=== PATIENT | male | born 1940 | race Caucasian/White ===

== ENCOUNTER 2020-03-22 07:11 | Day surgery (SDC) | payer OTHER ==
[2020-03-21 10:55] LABS: Protime INR 1.63
[~2020-03-22 07:11] MED LIST: ATROPINE SULF 1 MG/10 ML SYR IV ONE; FLUMAZENIL 0.1 MG/ML (5 mL VIAL) IV ONE; MIDAZOLAM HCL 5 MG/5 ML INJ ONE; NA CHLORIDE 0.9% 500 ML ONE
--- OUTSIDE RECORDS SUMMARY | 2020-03-22 07:14 | XMS REPORT ---
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 chest pain. HISTORY: Cardiac risk factors: Diabetes, hypertension, hyperlipidemia, tobacco use. Other cardiovascular history: CAD, pacemaker implantation, atrial fibrillation. Recent cardiac symptoms: Chest pain. Current cardiovascular-related medications: Aspirin, carvedilol, lisinopril, rivaroxaban. PROTOCOL: Limited low-dose CT imaging was performed for attenuation correction. 40.2 mCi of Rb-82 chloride was injected iv at rest, and gated PET (positron emission tomography) images were obtained. Subsequently, 40.2 mCi of Rb-82 chloride was injected iv at expected peak pharmacologic effect, and gated PET images were obtained. PRELIMINARY STRESS TEST DATA FROM NONINVASIVE CARDIOLOGY: Pharmacologic stresswas by 10-second iv infusion of 0.4 mg of regadenoson. Radiotracer was injected 30 seconds after start of stress. Heart rate was 99 beats/min at rest and 109 beats/min (75% of MPHR) at tracer injection. BP was 119/82 mmHg at rest and 128/76 mmHg at tracer injection. Stress was stopped for predetermined endpoint. The patient experienced chest discomfort, dyspnea; treatment was given - aminophyllin. Preliminary ECG evaluation revealed atrial fibrillation with variable ventricular pacing, nonspecific ST T wave changes at rest and no significant changes with stress. (Final ECG interpretation and other stress and monitoring data are reported separately by Cardiology.) IMAGING FINDINGS: Study quality is fair. Gated images quality is poor. Images obtained after stress injection show mild to moderately decreased radiotracer uptake in the apex of the LV. Resting images show similar radiotracer uptake. LV volume appears normal. RV volume appears normal. Gated images obtained immediately after stress visually appear to show lower limits of normal LV function. Accurate assessment of LVEF is not possible given poor gated image quality. IMPRESSION: 1. Abnormal study. 2. Appropriate pharmacologicstress. 3. Abnormal myocardial perfusion. There is a mild to moderate severity, small to medium size, fixed, perfusion defect in the apex of the LV. 4. Lower limits of normal resting LV function. 5. Extracardiac tracer distribution is normal. 6. No previous [facility] study for comparison. NONINVASIV E RISK STRATIFICATION: The above findings are considered intermediate risk (1% to 3% annual mortality rate) Signed: Deonte Goodson MDReport Verified Date/Time: 03/25/2018 15:46:08 Reading Location: [address] Reading Room POCT- GLUCOSE [id number] 12:03:00 Test Item Value Reference Range Comments POC-GLUCOSE METER (BEAKER) 92 mg/dL 70-110 TESTE D AT [address] (test code = 1538) [place] [address] POCT-GLUCOSE [id number] 08:20:00 Test Item Value Reference Range Comments POC-GLUCOSE METER (BEAKER) 114 mg/dL 70-110 TESTE D AT [address] (test code = 1538) [place] [address] [id number] 05:15:00 Test Item Value Reference Range Comments MAGNESIUM (BEAKER) (test code = 1.8 mg/dL 1.6-2.6 Specimen slightly hemolyzed 627) BASIC METABOLIC [id number] 05:15:00 Test Item Value Reference Range Comments SODIUM (BEAKER) (test 137 meq/L 136-145 code = 381) POTASSIUM (BEAKER) (test 3.8 meq/L 3.5-5.1 Specime n slightly code = 379) hemolyzed CHLORIDE (BEAKER) (test 108 meq/L 98-107 code = 382) CO2 (BEAKER) (test code = 18 meq/L 22-29 355) BLOOD UREA NITROGEN 17 mg/dL 7-21 (BEAKER) (test code = 354) CREATININE (BEAKER) (test 0.72 mg/dL 0.57-1.25 Specim en slightly code = 358) hemolyzed GLUCOSE RANDOM (BEAKER) 108 mg/dL 70-105 (test code = 652) CALCIUM (BEAKER) (test 8.5 mg/dL 8.4-10.2 code = 697) EGFR (BEAKER) (test code 106 mL/min/1.73 sq m ES TIMATED GFR IS NOT = 1092) ACCURATE CREA TININE CLEARANCE IN PRE DICTING GLOMERULAR FILTR ATION RATE. ESTIMATED GFR IS NOT APPLICABLE F OR DIALYSIS PATIENT S. CBC W/PLT COUNT & AUTO [id number] 05:13:00 Test Item Value Reference Range Comments WHITE BLOOD CELL COUNT (BEAKER) (test code = 775) 4.9 K/ L 3.5-10.5 RED BLOOD CELL COUNT (BEAKER) (test code = 761) 3.08 M/ L 4.63-6.08 HEMOGLOBIN (BEAKER) (test code = 410) 10.3 GM/DL 13.7-17.5 HEMATOCRIT (BEAKER) (test code = 411) 32.7 % 40.1-51.0 MEAN CORPUSCULAR VOLUME (BEAKER) (test code = 106.2 fL 79 .0-92.2 753) MEAN CORPUSCULAR HEMOGLOBIN (BEAKER) (test code = 33.4 pg 25.7-32.2 751) MEAN CORPUSCULAR HEMOGLOBIN CONC (BEAKER) (test 31.5 GM/DL 32.3-36.5 code = 752) RED CELL DISTRIBUTION WIDTH (BEAKER) (test code = 14.8 % 11.6-14.4 412) PLATELET COUNT (BEAKER) (test code = 756) 59 K/CU MM 150-45 0 MEAN PLATELET VOLUME (BEAKER) (test code = 754) 10.8 fL 9.4-12.4 NUCLEATED RED BLOOD CELLS (BEAKER) (test code = 0 /100 WBC 0-0 413) NEUTROPHILS RELATIVE PERCENT (BEAKER) (test code 56 % = 429) LYMPHOCYTES RELATIVE PERCENT (BEAKER) (test code 31 % = 430) MONOCYTES RELATIVE PERCENT (BEAKER) (test code = 11 % 431) EOSINOPHILS RELATIVE PERCENT (BEAKER) (test code 1 % = 432) BASOPHILS RELATIVE PERCENT (BEAKER) (test code = 1 % 437) NEUTROPHILS ABSOLUTE COUNT (BEAKER) (test code = 2.71 K/ L 1.78-5.38 670) LYMPHOCYTES ABSOLUTE COUNT (BEAKER) (test code = 1.52 K/ L 1.32-3.57 414) MONOCYTES ABSOLUTE COUNT (BEAKER) (test code = 0.55 K/ L 0 .30-0.82 415) EOSINOPHILS ABSOLUTE COUNT (BEAKER) (test code = 0.05 K/ L 0.04-0.54 416) BASOPHILS ABSOLUTE COUNT (BEAKER) (test code = 0.03 K/ L 0 .01-0.08 417) IMMATURE GRANULOCYTES-RELATIVE PERCENT (BEAKER) 0 % 0-1 (test code = 2801) POCT-GLUCOSE [id number] 03:44:00 Test Item Value Reference Range Comments POC-GLUCOSE METER (BEAKER) 94 mg/dL 70-110 TESTE D AT [address] (test code = 1538) [place] [address] POCT-GLUCOSE [id number] 22:46:00 Test Item Value Reference Range Comments POC-GLUCOSE METER (BEAKER) 111 mg/dL 70-110 TESTE D AT [address] (test code = 1538) [place] [address] POCT-GLUCOSE [id number] 11:54:00 Test Item Value Reference Range Comments POC-GLUCOSE METER (BEAKER) 101 mg/dL 70-110 TESTE D AT [address] (test code = 1538) [place] [address] POCT-GLUCOSE [id number] 08:53:00 Test Item Value Reference Range Comments POC-GLUCOSE METER (BEAKER) 121 mg/dL 70-110 TESTE D AT [address] (test code = 1538) [facility] [address] [id number] 04:28:00 Test Item Value Reference Range Comments MAGNESIUM (BEAKER) (test code = 627) 2.1 mg/dL 1.6-2.6 BASIC METABOLIC [id number] 04:28:00 Test Item Value Reference Range Comments SODIUM (BEAKER) (test 137 meq/L 136-145 code = 381) POTASSIUM (BEAKER) (test 4.6 meq/L 3.5-5.1 code = 379) CHLORIDE (BEAKER) (test 102 meq/L 98-107 code = 382) CO2 (BEAKER) (test code = 27 meq/L 22-29 355) BLOOD UREA NITROGEN 20 mg/dL 7-21 (BEAKER) (test code = 354) CREATININE (BEAKER) (test 0.81 mg/dL 0.57-1.25 code = 358) GLUCOSE RANDOM (BEAKER) 107 mg/dL 70-105 (test code = 652) CALCIUM (BEAKER) (test 9.6 mg/dL 8.4-10.2 code = 697) EGFR (BEAKER) (test code 93 mL/min/1.73 sq m EST IMATED GFR IS NOT = 1092) ACCURATE CREA TININE CLEARANCE IN PRE DICTING GLOMERULAR FILTR ATION RATE. ESTIMATED GFR IS NOT APPLICABLE F OR DIALYSIS PATIENT S. CBC W/PLT COUNT & AUTO [id number] 04:13:00 Test Item Value Reference Range Comments WHITE BLOOD CELL COUNT (BEAKER) (test code = 775) 7.1 K/ L 3.5-10.5 RED BLOOD CELL COUNT (BEAKER) (test code = 761) 3.94 M/ L 4.63-6.08 HEMOGLOBIN (BEAKER) (test code = 410) 13.1 GM/DL 13.7-17.5 HEMATOCRIT (BEAKER) (test code = 411) 38.8 % 40.1-51.0 MEAN CORPUSCULAR VOLUME (BEAKER) (test code = 98.5 fL 79 .0-92.2 753) MEAN CORPUSCULAR HEMOGLOBIN (BEAKER) (test code = 33.2 pg 25.7-32.2 751) MEAN CORPUSCULAR HEMOGLOBIN CONC (BEAKER) (test 33.8 GM/DL 32.3-36.5 code = 752) RED CELL DISTRIBUTION WIDTH (BEAKER) (test code = 14.7 % 11.6-14.4 412) PLATELET COUNT (BEAKER) (test code = 756) 59 K/CU MM 150-45 0 MEAN PLATELET VOLUME (BEAKER) (test code = 754) 10.6 fL 9.4-12.4 NUCLEATED RED BLOOD CELLS (BEAKER) (test code = 0 /100 WBC 0-0 413) NEUTROPHILS RELATIVE PERCENT (BEAKER) (test code 61 % = 429) LYMPHOCYTES RELATIVE PERCENT (BEAKER) (test code 27 % = 430) MONOCYTES RELATIVE PERCENT (BEAKER) (test code = 10 % 431) EOSINOPHILS RELATIVE PERCENT (BEAKER) (test code 1 % = 432) BASOPHILS RELATIVE PERCENT (BEAKER) (test code = 0 % 437) NEUTROPHILS ABSOLUTE COUNT (BEAKER) (test code = 4.33 K/ L 1.78-5.38 670) LYMPHOCYTES ABSOLUTE COUNT (BEAKER) (test code = 1.92 K/ L 1.32-3.57 414) MONOCYTES ABSOLUTE COUNT (BEAKER) (test code = 0.71 K/ L 0 .30-0.82 415) EOSINOPHILS ABSOLUTE COUNT (BEAKER) (test code = 0.08 K/ L 0.04-0.54 416) BASOPHILS ABSOLUTE COUNT (BEAKER) (test code = 0.03 K/ L 0 .01-0.08 417) IMMATURE GRANULOCYTES-RELATIVE PERCENT (BEAKER) 0 % 0-1 (test code = 2801) POCT-GLUCOSE [id number] 22:00:00 Test Item Value Reference Range Comments POC-GLUCOSE METER (BEAKER) 104 mg/dL 70-110 TESTE D AT [address] (test code = 1538) [place] [address] POCT-GLUCOSE [id number] 18:27:00 Test Item Value Reference Range Comments POC-GLUCOSE METER (BEAKER) 121 mg/dL 70-110 TESTE D AT [address] (test code = 1538) [place] [address] [address], CTA, [id number] 17:50:00FINAL REPORT CTA OF THE CHEST CLINICAL HISTORY: Chest pain TECHNIQUE: CTA ofthe chest is performed with and without intravenous contrast administration. This exam was performed according to our departmental dose-optimization program which includes automated exposure control, adjustment of the mA and/or kV according to patient size and/or use of iterative reconstruction technique. 3-D postprocessing was performed to create volume rendering and maximum intensity projection images. COMPARISON FILM: None DISCUSSION: AORTA: No acute aortic pathology identified. No dissection, intramural hematoma, or rupture.Quantitative measurements of the aorta as follows:3.3 cm at the sinuses of Valsalva3.8 cm at the mid ascending portion at the level of the pulmonary artery2.8 cm at the mid aortic arch3.2 cm at the proximal descending portion2.5 cm at the diaphragmatic hiatus LINES/TUBES:Multi lead AICD present. LUNGS/AIRWAYS: Trachea and major airways are clear. There is mild subsegmental bibasilar atelectasis. No discrete nodule measuring greater than 6 mm. No focal consolidation.PLEURA: No effusion or pneumothorax.HEART AND MEDIASTINUM: No mediastinal or hilar lymphadenopathy. No pericardial effusion. Coronary artery calcifications. BONES AND SOFT TISSUES: Degenerative changes in the thoracic spine. No destructive osseous lesion. IMPRESSION: No acute aortic pathology. No acute findings in the chest. Signed: Jorge Rogers MDReport Verified Date/Time: 03/23/2018 17:50:08 Reading Location: [address] Body Reading Room TROPONIN [id number] 16:56:00 Test Item Value Reference Range Comments TROPONIN I (SHANKARAKER) (test code = 397) 0.01 ng/mL 0.00-0.03 Troponin I (TnI) levels must be interpreted in the context of the presenting symptoms and the clinical findings. Elevated TnI levels indicate myocardial damage, but are not specific for ischemic heart disease. Elevated TnI levels are seen in patients with other cardiac conditions (including myocarditis and congestive heart failure), and slight TnI elevations occur in patients with other conditions, including sepsis, renal failure, acidosis, acute neurological disease, and persistent tachyarrhythmia.POCT-GLUCOSE [id number] 14:12:00 Test Item Value Reference Range Comments POC-GLUCOSE METER (BEAKER) 112 mg/dL 70-110 TESTE D AT [address] (test code = 1538) [facility] [address] HEMOGLOBIN [id number] 09:26:00 Test Item Value Reference Range Comments HEMOGLOBIN A1C (BEAKER) (test code = 368) 7.0 % 4.3-6. 1 POCT-GLUCOSE [id number] 08:35:00 Test Item Value Reference Range Comments POC-GLUCOSE METER (BEAKER) 113 mg/dL 70-110 TESTE D AT [facility] [address] (test code = 1538) [place] [address] TROPONIN [id number] 08:30:00 Test Item Value Reference Range Comments TROPONIN I (BEAKER) (test code = 397) < ng/mL 0.00-0.03 Troponin I (TnI) levels must be interpreted in the context of the presenting symptoms and the clinical findings. Elevated TnI levels indicate myocardial damage, but are not specific for ischemic heart disease. Elevated TnI levels are seen in patients with other cardiac conditions (including myocarditis and congestive heart failure), and slight TnI elevations occur in patients with other conditions, including sepsis, renal failure, acidosis, acute neurological disease, and persistent tachyarrhythmia.[id number] 06:27:00 Test Item Value Reference Range Comments MAGNESIUM (BEAKER) (test code = 627) 2.0 mg/dL 1.6-2.6 BASIC METABOLIC [id number] 06:27:00 Test Item Value Reference Range Comments SODIUM (BEAKER) (test 135 meq/L 136-145 code = 381) POTASSIUM (BEAKER) (test 4.5 meq/L 3.5-5.1 code = 379) CHLORIDE (BEAKER) (test 104 meq/L 98-107 code = 382) CO2 (BEAKER) (test code = 21 meq/L 22-29 355) BLOOD UREA NITROGEN 19 mg/dL 7-21 (BEAKER) (test code = 354) CREATININE (BEAKER) (test 1.00 mg/dL 0.57-1.25 code = 358) GLUCOSE RANDOM (BEAKER) 110 mg/dL 70-105 (test code = 652) CALCIUM (BEAKER) (test 9.6 mg/dL 8.4-10.2 code = 697) EGFR (BEAKER) (test code 73 mL/min/1.73 sq m EST IMATED GFR IS NOT = 1092) ACCURATE CREA TININE CLEARANCE IN PRE DICTING GLOMERULAR FILTR ATION RATE. ESTIMATED GFR IS NOT APPLICABLE F OR DIALYSIS PATIENT S. CREATINE KINASE (CK), TOTAL AND [id number] 06:27:00 Test Item Value Reference Range Comments CREATINE KINASE TOTAL (BEAKER) (test code = 380) 154 U/L 29-200 CREATINE KINASE-MB (BEAKER) (test code = 750) 4.6 ng/mL 0. 0-6.6 CREATINE KINASE-MB INDEX (BEAKER) (test code = 3.0 % 395) CK-MB Reference Range:<6.7 Normal6.7-10.0 Borderline>10.0 AbnormalTROPONIN [id number] 06:22:00 Test Item Value Reference Range Comments TROPONIN I (BEAKER) (test code = 397) < ng/mL 0.00-0.03 Troponin I (TnI) levels must be interpreted in the context of the presenting symptoms and the clinical findings. Elevated TnI levels indicate myocardial damage, but are not specific for ischemic heart disease. Elevated TnI levels are seen in patients with other cardiac conditions (including myocarditis and congestive heart failure), and slight TnI elevations occur in patients with other conditions, including sepsis, renal failure, acidosis, acute neurological disease, and persistent tachyarrhythmia.LIPID [id number] 04:11:00 Test Item Value Reference Range Comments TRIGLYCERIDES (BEAKER) (test 352 mg/dL Spe cimen slightly hemolyzed code = 540) CHOLESTEROL (BEAKER) (test code 141 mg/dL Specimen slightly hemolyzed = 631) HDL CHOLESTEROL (BEAKER) (test 48 mg/dL code = 976) LDL CHOLESTEROL CALCULATED 23 mg/dL (BEAKER) (test code = 633) Triglyceride Reference Range: Low Risk <150 Borderline 150-199 High Risk 200-499 Very High Risk >=500Cholesterol Reference Range: Low Risk <200 Borderline 200-239 High Risk >240HDL Cholesterol Reference Range: Low Risk >=60 High Risk <40LDL Cholesterol Reference Range: Optimal <100 Near Optimal 100-129 Borderline 130-159 High 160-189 Very High [id number] 01:40:00 Test Item Value Reference Range Comments D-DIMER QUANTITATIVE (MICHAEL) (test code = 0.43 MG/L FEU <0.50 671) Intended Use: The D-Dimer Assay can be used to aid in the diagnosis of Deep Vein Thrombosis (DVT) and Pulmonary Embolism Disease (PED).In patients with low pre- test probability, various studies concerning STA Liatest D-dimer test have reported that with a cutoff value of 0.50 MG/L FEU, the Negative Predictive Value (NPV) regarding the exclusion of thrombosis is within 95-100% range. TROPONIN [id number] 01:26:00 Test Item Value Reference Range Comments TROPONIN I (MICHAEL) (test code = 397) 0.01 ng/mL 0.00-0.03 Troponin I (TnI) levels must be interpreted in the context of the presenting symptoms and the clinical findings. Elevated TnI levels indicate myocardial damage, but are not specific for ischemic heart disease. Elevated TnI levels are seen in patients with other cardiac conditions (including myocarditis and congestive heart failure), and slight TnI elevations occur in patients with other conditions, including sepsis, renal failure, acidosis, acute neurological disease, and persistent tachyarrhythmia.PROTHROMBIN [id number] 01:26:00 Test Item Value Reference Range Comments PROTIME (MICHAEL) (test code = 759) 16.9 seconds 11.7-14.7 INR (MICHAEL) (test code = 370) 1.4 <=5.9 RECOMMENDED COUMADIN/WARFARIN INR THERAPY RANGESSTANDARD DOSE: 2.0 - 3.0 Includes: PROPHYLAXIS forvenous thrombosis, systemic embolization; TREATMENT for venous thrombosis and/or pulmonary embolus.HIGH RISK: Target INR is 2.5-3.5 for patients with mechanical heart valves.RAD, CHEST, 1 VIEW, NON [id number] 01:12:00Reason for exam:->Chest PainFINAL REPORT RAD, CHEST, 1 VIEW, NON DEPT INDICATION: Chest Pain COMPARISON: None TECHNIQUE: Single frontal view of the chest. IMPRESSION:Cardiomegaly.Diffuse interstitial prominence which may be chronic. A subtle superimposed interstitial edema or interstitial pneumonitis wouldbe difficult to exclude. Small left-sided effusion.No acute osseous abnormality. Signed: Dolores Mo MDReport Verified Date/Time: 03/23/2018 01:12:11 Reading Location: [facility] B1 C013X Ortho Consult Re ading Room CBC W/PLT COUNT & AUTO [id number] 01:04:00 Test Item Value Reference Range Comments WHITE BLOOD CELL COUNT (BEAKER) (test code = 775) 8.6 K/ L 3.5-10.5 RED BLOOD CELL COUNT (BEAKER) (test code = 761) 4.13 M/ L 4.63-6.08 HEMOGLOBIN (BEAKER) (test code = 410) 14.2 GM/DL 13.7-17.5 HEMATOCRIT (BEAKER) (test code = 411) 40.9 % 40.1-51.0 MEAN CORPUSCULAR VOLUME (BEAKER) (test code = 99.0 fL 79 .0-92.2 753) MEAN CORPUSCULAR HEMOGLOBIN (BEAKER) (test code = 34.4 pg 25.7-32.2 751) MEAN CORPUSCULAR HEMOGLOBIN CONC (BEAKER) (test 34.7 GM/DL 32.3-36.5 code = 752) RED CELL DISTRIBUTION WIDTH (BEAKER) (test code = 15.0 % 11.6-14.4 412) PLATELET COUNT (BEAKER) (test code = 756) 68 K/CU MM 150-45 0 MEAN PLATELET VOLUME (BEAKER) (test code = 754) 11.0 fL 9.4-12.4 NUCLEATED RED BLOOD CELLS (BEAKER) (test code = 0 /100 WBC 0-0 413) NEUTROPHILS RELATIVE PERCENT (BEAKER) (test code 56 % = 429) LYMPHOCYTES RELATIVE PERCENT (BEAKER) (test code 31 % = 430) MONOCYTES RELATIVE PERCENT (BEAKER) (test code = 12 % 431) EOSINOPHILS RELATIVE PERCENT (BEAKER) (test code 1 % = 432) BASOPHILS RELATIVE PERCENT (BEAKER) (test code = 1 % 437) NEUTROPHILS ABSOLUTE COUNT (BEAKER) (test code = 4.80 K/ L 1.78-5.38 670) LYMPHOCYTES ABSOLUTE COUNT (BEAKER) (test code = 2.65 K/ L 1.32-3.57 414) MONOCYTES ABSOLUTE COUNT (BEAKER) (test code = 1.03 K/ L 0 .30-0.82 415) EOSINOPHILS ABSOLUTE COUNT (BEAKER) (test code = 0.06 K/ L 0.04-0.54 416) BASOPHILS ABSOLUTE COUNT (BEAKER) (test code = 0.04 K/ L 0 .01-0.08 417) IMMATURE GRANULOCYTES-RELATIVE PERCENT (BEAKER) 0 % 0-1 (test code = 2801)
[2020-03-22 09:23] VITALS: TEMP 97.9
[2020-03-22 10:23] VITALS: O2SAT 94
[2020-03-22 10:25] VITALS: BP 111/55
--- NOTE | 2020-03-22 12:36 | OP ---
Date of Procedure: 03/22/2020 Surgeon: Frederic Ramirez MD Customer Retention Representative: Destini Turner. Procedure: Direct current cardioversion. Indication: Recurrent atrial fibrillation. History Of Present Illness: Mr. Zaman is a 80-year-old white male, has a history of recurrent atr ial fibrillation. He is status post pacemaker. He is on flecainide 100 b.i.d. and Eliquis, and rama ins in atrial fibrillation with symptoms of weakness and dyspnea on exertion. Admitted today for a c ardioversion. He received 7 mg of Versed for IV sedation. He received 2 shocks, one with 100, the s econd one was 200 joules and he converted to sinus rhythm. There were no complications or blood loss . Patient tolerated the procedure well. Anesthesia: Total conscious sedation was 30 minutes. Final Diagnosis: Atrial fibrillation, status post successful direct current cardioversion to sinus r hythm. A 12-lead EKG confirmed sinus rhythm. Patient will be going home today after he wakes up. He can maintain his regimen with flecainide 100 b.i.d. as well as Eliquis and I will see him in the office in the next 2 weeks. If his atrial fibril lation recurs, he will undergo an ablation by Dr. Shane. KELSIE/SHANTI Voice ID: [id number] Report ID: [id number]
--- NOTE | 2020-03-23 06:49 | EKG ---
Test Date: 2020-03-22 Test Time: 06:27:47 Outpatient Therapist: CHRISS MEASUREMENT RESULTS: Intervals: Rate: 66 VA: 246 QRSD: 120 QT: 440 QTc: 461 Dickens: P: 78 VA: 246 QRS: -48 T: 73 INTERPRETIVE STATEMENTS: Electronic ventricular pacemaker No previous ECG available for comparison Electronically Signed On 03-23-20 06:48:36 CDT by Frederic Ramirez
== END 2020-03-22 09:44 | disposition home or self-care (01) ==
LOC: CCL 07:11
DX: I48.0 Paroxysmal atrial fibrillation (principal); I10 Essential (primary) hypertension; I51.7 Cardiomegaly; E78.5 Hyperlipidemia, unspecified; E11.9 Type 2 diabetes mellitus without complications; R06.09 Other forms of dyspnea; D64.9 Anemia, unspecified; Z95.0 Presence of cardiac pacemaker; Z79.01 Long term (current) use of anticoagulants; F17.210 Nicotine dependence, cigarettes, uncomplicated
CPT/HCPCS: 93005; 36415; 85610; 82947; 85730; 92960; J2250 ×2; J7040

== ENCOUNTER 2020-05-26 13:35 | Observation (INO) | payer OTHER ==
[2020-05-26] MEDS ORDERED: IPRATROPIUM BROM 0.5MG/2.5ML ONE ×2 (14:05→18:03)
[2020-05-26] MEDS ORDERED: ONDANSETRON 4 MG/2 ML VIAL ONE (14:06)
[2020-05-26] MEDS ORDERED: ALBUTEROL 2.5 MG/3 ML NEB SOL ONE ×2 (14:06→18:03)
[2020-05-26] MEDS ORDERED: MORPHINE 4 MG/ML SYR ONE (14:06)
[2020-05-26] MEDS ORDERED: predniSONE 20 MG TAB ONE (14:06)
[2020-05-26] MEDS ORDERED: LEVALBUTEROL 1.25 MG/3 ML NEB ONE (14:08)
[2020-05-26 14:11] LABS: Absolute Lymphocytes (CBC) 1.1 K/uL (0.7-4.9); Basophils % 0.4 % (0-1.3); Hematocrit 35.7 % (39.6-49.0); Lymphocytes % 15.5 % (15.3-44.8); MPV 9.2 fL (7.6-11.3); RBC Red Blood Cell Count 3.88 M/uL (4.33-5.43)
[2020-05-26 14:18] LABS: Protime INR 1.82
[2020-05-26 14:33] LABS: Albumin 3.7 g/dL (3.4-5.0); Bilirubin Direct 0.5 mg/dL (0-0.2); Bilirubin Total 1.7 mg/dL (0.2-1.0); Magnesium 1.8 mg/dL (1.8-2.4); Potassium 3.8 mmol/L (3.5-5.1); Protein, Total 7.4 g/dL (6.4-8.2)
[2020-05-26 14:35] LABS: Troponin (Emerg Dept Use Only) 1.12 ng/mL (0.0-0.045)
--- NOTE | 2020-05-26 14:47 | RAD REPORT ---
EXAM DESCRIPTION: RAD - Chest Single View - 05/26/2020 2:35 pm CLINICAL HISTORY: CHEST PAIN Chest pain. COMPARISON: Chest Pa And Lat (2 Views) dated 12/28/2019 FINDINGS: Portable technique limits examination quality. Mild interstitial pulmonary edema again seen. The heart is moderately enlarged in size with a dual le ad pacer device. No displaced fractures. IMPRESSION: Mild CHF.
--- NOTE | 2020-05-26 16:32 | RAD REPORT ---
EXAM DESCRIPTION: CT - Chest For Pe Angio - 05/26/2020 4:21 pm CLINICAL HISTORY: Chest pain. Chest pain;SOB COMPARISON: No comparisons TECHNIQUE: CT angiogram of the pulmonary arteries was performed with MIP. All CT scans are performed using dose optimization technique as appropriate and may include automated exposure control or mA/KV adjustment according to patient size. FINDINGS: No evidence of pulmonary thromboembolism. No acute aortic finding demonstrated. The heart is mildly enlarged in size. Mild ground-glass opacity bilaterally likely representing interstitial pulmonary edema. Interstitial opacity in the left upper lobe also seen which may represent interstitial pneumonia. Trace bilateral pleural effusions. Mildly enlarged lymph nodes are seen in the mediastinum and hilar regions. Moderate lumbar degenerative changes. IMPRESSION: No evidence of pulmonary thromboembolism. Mild CHF is seen with interstitial lung opacities in the left upper lobe which probably represent sup erimposed interstitial pneumonia. Enlarged lymph nodes seen in the mediastinum and hilar regions, probably reactive lymphadenopathy. Trace bilateral pleural effusions.
--- NOTE | 2020-05-26 16:58 | ER ---
Nurse's Notes [facility] Name: Brenden Zaman Age: 80 yrs Sex: Male : 1940 Arrival Date: 05/26/2020 Time: 13:36 Bed 17 Private MD: Frederic Ramirez S Diagnosis: Viral pneumonia, unspecified;Shortness of breath;Congestive heart failure Presentation: 05/26 13:47 Chief complaint: Patient states: Worsening shortness of breath since Saturday, post jl7 ablation, released on Saturday. Coronavirus screen: Proceed with normal triage. Patient denies a cough. Patient reports shortness of breath or difficulty breathing. Patient denies measured and/or subjective temperature greater than 100.4F prior to today's visit. Patient denies travel on a cruise ship or to a country the [facility] currently lists as an affected area. Patient denies contact with known and/or suspected case of COVID-19. Ebola Screen: No symptoms or risks identified at this time. Initial Sepsis Screen: Does the patient meet any 2 criteria? RR > 20 per min. Does the patient have a suspected source of infection? No. Patient's initial sepsis screen is negative. Risk Assessment: Do you want to hurt yourself or someone else? Patient reports no desire to harm self or others. Onset of symptoms was May 24, 2020. Care prior to arrival: None. 13:47 Method Of Arrival: Wheelchair [facility] 13:47 Acuity: KEY 2 jl7 Historical: - Allergies: 13:52 No Known Allergies; jl7 - Home Meds: 13:52 carvedilol oral oral [Active]; Crestor oral oral [Active]; furosemide Oral [Active]; jl7 flecainide oral oral [Active]; Lisinopril Oral [Active]; Metformin Oral [Active]; rivastigmine 9.5 mg/24 hr transdermal pt24 1 patch once daily [Active]; Xarelto oral oral [Active]; - PMHx: 13:52 Atrial Fib; Hypertension; Diabetes - NIDDM; Hyperlipidemia; CHF; Dementia; jl7 - PSHx: 13:52 Ablation; jl7 - Immunization history:: Adult Immunizations up to date. - Social history:: Smoking status: Patient reports the use of cigarette tobacco products, smokes one pack cigarettes per day. Screenin:45 Abuse screen: Denies threats or abuse. Nutritional screening: No deficits noted. em Tuberculosis screening: No symptoms or risk factors identified. Fall Risk None identified. Assessment: 13:45 General: Appears uncomfortable, Behavior is calm, cooperative, appropriate for age, em Reports fever for 12-24 hours. Pain: Complains of pain in anterior aspect of left upper chest Pain does not radiate. Pain currently is 8 out of 10 on a pain scale. Pain began 2-3 days ago. Neuro: Level of Consciousness is awake, alert, obeys commands, Oriented to person, place, time, situation, Appropriate for age. Cardiovascular: Reports chest pain, Capillary refill is > 3 seconds is sluggish fingers Patient's skin is warm and dry. Rhythm is sinus rhythm. Respiratory: Reports shortness of breath at rest cough that is Airway is patent Respiratory effort is labored, Respiratory pattern is regular, tachypnea Breath sounds with wheezes bilaterally. the patient has moderate shortness of breath. Derm: Skin is intact, Skin is pink, warm \T\ dry. Musculoskeletal: Range of motion: intact in all extremities. 14:40 Reassessment: Patient appears in no apparent distress at this time. No changes from ca1 previously documented assessment. Patient is alert, oriented x 3, equal unlabored respirations, skin warm/dry/pink. 15:51 Reassessment: Patient appears in no apparent distress at this time. No changes from ca1 previously documented assessment. Patient is alert, oriented x 3, equal unlabored respirations, skin warm/dry/pink. 16:46 Reassessment: Patient appears in no apparent distress at this time. No changes from ca1 previously documented assessment. Patient is alert, oriented x 3, equal unlabored respirations, skin warm/dry/pink. 17:36 Reassessment: Patient appears in no apparent distress at this time. No changes from ca1 previously documented assessment. Patient is alert, oriented x 3, equal unlabored respirations, skin warm/dry/pink. 17:46 Reassessment: PT O2 sat lowered to 86%. Notified provider. Called RT for a simple mask. ca1 18:00 Reassessment: RT at bedside. ca1 18:08 Reassessment: Hospitalist at bedside. ca1 18:41 Reassessment: Patient appears in no apparent distress at this time. Patient is alert, ca1 oriented x 3, equal unlabored respirations, skin warm/dry/pink. 19:48 Reassessment: Patient appears in no apparent distress at this time. Patient is alert, ca1 oriented x 3, equal unlabored respirations, skin warm/dry/pink. Called for report nurse will call back. 20:49 Reassessment: Patient appears in no apparent distress at this time. Patient is alert, ca1 oriented x 3, equal unlabored respirations, skin warm/dry/pink. 21:50 Reassessment: Patient appears in no apparent distress at this time. No changes from mg2 previously documented assessment. Patient is alert, oriented x 3, equal unlabored respirations, skin warm/dry/pink. Vital Signs: 13:47 Pulse Ox 96% on 3 lpm NC; em 13:47 BP 142 / 70; Pulse 88; Resp 43; Temp 98.9; Pulse Ox 89% on R/A; Pain 7/10; em 14:00 BP 139 / 84; Pulse 73; Resp 30; Pulse Ox 99% on Nebulizer Mask; em 15:02 BP 128 / 59; Pulse 68; Resp 24 S; Pulse Ox 94% on 2 lpm NC; ca1 15:51 BP 111 / 55; Pulse 68; Resp 25 S; Pulse Ox 93% on 2 lpm NC; ca1 16:50 BP 121 / 55; Pulse 67; Resp 23 S; Pulse Ox 93% on 2 lpm NC; ca1 17:36 BP 141 / 73; Pulse 72; Resp 28; Pulse Ox 91% on 3 lpm NC; ca1 17:49 Pulse 71; Resp 35; Pulse Ox 86% on 4 lpm NC; ca1 18:00 Pulse 82; Resp 32; Pulse Ox 98% on 10% Simple Mask; ca1 18:09 Pulse 75; Resp 22; Pulse Ox 97% on Nebulizer Mask; ca1 18:41 BP 142 / 67; Pulse 65; Resp 26 S; Pulse Ox 98% on 10% Simple Mask; ca1 19:47 BP 135 / 63; Pulse 65; Resp 25 S; Pulse Ox 96% on 10% Simple Mask; ca1 20:49 BP 120 / 53; Pulse 65; Resp 25 S; Pulse Ox 100% on R/A; ca1 21:50 BP 123 / 51; Pulse 65; Resp 20 S; Pulse Ox 98% on 4 lpm NC; mg2 ED Course: 13:36 Patient arrived in ED. ag5 13:36 Frederic Ramirez MD is Private Physician. ag5 13:43 Elaine Anthony, LEXI is Primary Nurse. ca1 13:45 Kris Evans MD is Attending Physician. kdr 13:45 Patient maintains SpO2 saturation greater than 95% on room air. em 13:45 Patient has correct armband on for positive identification. Bed in low position. Call em light in reach. Side rails up X2. Adult w/ patient. classroom monitor on. Pulse ox on. NIBP on. 13:49 Triage completed. jl7 13:50 Initial lab(s) drawn, by me, sent to lab. Inserted saline lock: 22 gauge in right em wrist, using aseptic technique. Blood collected. 13:52 Arm band placed on right wrist. Patient placed in an exam room, on a stretcher, on jl7 oxygen, on classroom monitor, on pulse oximetry. EKG completed in triage. Results shown to MD. 14:35 Notified ED physician of a critical lab result(s). troponin-1.12. sv 14:36 XRAY Chest (1 view) In Process Unspecified. EDMS 16:22 CT Chest For PE Angio In Process Unspecified. EDMS 17:23 David Kwan DO is Hospitalizing Provider. kdr 17:35 Blood Culture Adult (2) Sent. ca1 17:35 COVID-19 Sent. ca1 18:38 Bang Blandon MD is Hospitalizing Provider. kdr 19:47 No provider procedures requiring assistance completed. Patient admitted, IV remains in ca1 place. Administered Medications: 14:07 Drug: Zofran (Ondansetron) 4 mg Route: IVP; Site: right wrist; em 14:30 Follow up: Response: No adverse reaction em 15:00 Follow up: Response: No adverse reaction; Nausea is decreased ca1 14:08 Drug: Xopenex (3) 1.25 mg Route: Inhalation; em 14:47 Follow up: Response: No adverse reaction; Marked relief of symptoms em 14:08 Drug: predniSONE 60 mg Route: PO; em 14:48 Follow up: Response: No adverse reaction em 15:00 Follow up: Response: No adverse reaction ca1 14:08 Drug: AtroVENT Aerosol 0.5 mg Route: Inhalation; em 14:47 Follow up: Response: No adverse reaction; Marked relief of symptoms em 14:09 Drug: morphine 4 mg Route: IVP; Site: right wrist; em 14:30 Follow up: Response: No adverse reaction; Pain is unchanged, physician notified em 15:00 Follow up: Response: No adverse reaction; Pain is decreased; RASS: Alert and Calm (0) ca1 14:12 Not Given (Duplicate Order): Xopenex (3) 1.25 mg Inhalation once em 14:12 Not Given (Duplicate Order): morphine 4 mg IVP once; RASS on ADMIN: Combtv4, Very em Agttd3, Agttd2, Rstlss1, AlertClm0, Drwsy-1, Lt Sdtn-2, Mod Sdtn-3, Dp Sdtn-4, UnArsble-5 14:13 Not Given (Duplicate Order): Zofran (Ondansetron) 4 mg IVP once; over 2 minutes em 14:13 Not Given (Duplicate Order): predniSONE 60 mg PO once em 17:48 Drug: Rocephin - (cefTRIAXone) 1 grams Route: IVPB; Infused Over: 30 mins; Site: right ca1 forearm; 18:09 Follow up: Response: No adverse reaction; IV Status: Completed infusion ca1 17:48 Drug: Zithromax 500 mg Route: PO; ca1 18:09 Follow up: Response: No adverse reaction ca1 18:07 Drug: LaSIX 20 mg Route: PO; ca1 18:44 Follow up: Response: No adverse reaction ca1 18:08 Drug: Albuterol - atroVENT (3:1) (2.5 mg - 0.5 mg) 3 ml Route: Nebulizer; ca1 18:44 Follow up: Response: No adverse reaction; Marked relief of symptoms ca1 Outcome: 16:57 ER care complete, transfer ordered by . kdr 17:24 Decision to Hospitalize by Provider. kdr 22:08 Admitted to Tele accompanied by tech, via wheelchair, room 409, with oxygen, with ca1 chart, Report called to LEXI Pompa 22:08 Condition: stable 22:08 Instructed on the need for admit. 22:18 Patient left the ED. mg2 Signatures: Dispatcher [employer] Radha Lucero RN RN sv Rittger, Kevin, MD MD kdr Munoz, Edgar, RN RN em Frida Goodman RN RN jl7 Ck Oliva RN RN mg2 Elaine Anthony RN RN ca1 Bibiana Ramirez ag5 Corrections: (The following items were deleted from the chart) 15:52 15:02 BP 128 / 59; Pulse 68bpm; Resp 24bpm; Spontaneous; Pulse Ox 94% RA; ca1 ca1 18:42 18:00 Pulse 82bpm; Resp 32bpm; Pulse Ox 98% Simple Mask; ca1 ca1
--- NOTE | 2020-05-26 16:58 | EDPHYS ---
Physician Documentation [facility] Name: Brenden Zaman Age: 80 yrs Sex: Male : 1940 Arrival Date: 05/26/2020 Time: 13:36 Bed 17 Private MD: Frederic Ramirez S ED Physician Kris Evans HPI: 05/26 18:45 This 80 yrs old Male presents to ER via Wheelchair with complaints of Chest kdr Pain, Shortness Of Breath. 18:45 The patient or guardian reports chest pain that is located primarily in the anterior kdr chest wall. Onset: gradually, 3 day(s) ago. The pain does not radiate. Associated signs and symptoms: Pertinent positives: shortness of breath, Pertinent negatives: abdominal pain, cough, diaphoresis, dizziness, headache, lower extremity pain, lower extremity swelling, lightheadedness, nausea, near syncope, palpitations, syncope. The chest pain is described as dull. Duration: The patient or guardian reports a single episode, that is still ongoing, and worsening. 18:46 The patient has shortness of breath at rest, with light activity. Onset: The kdr symptoms/episode began/occurred gradually, 3 day(s) ago. Duration: The symptoms are continuous, and are steadily getting worse. The patient's shortness of breath is aggravated by coughing, exertion, light activity, talking, walking. Associated signs and symptoms: The patient has no apparent associated signs or symptoms. Severity of symptoms: At their worst the symptoms were moderate in the emergency department the symptoms are unchanged. The patient has not experienced similar symptoms in the past. The patient has been recently seen by a physician: The patient had an ablation at [facility] on Saturday, discharged on Saturday. has become worse since then. Historical: - Allergies: 13:52 No Known Allergies; jl7 - Home Meds: 13:52 carvedilol oral oral [Active]; Crestor oral oral [Active]; furosemide Oral [Active]; jl7 flecainide oral oral [Active]; Lisinopril Oral [Active]; Metformin Oral [Active]; rivastigmine 9.5 mg/24 hr transdermal pt24 1 patch once daily [Active]; Xarelto oral oral [Active]; - PMHx: 13:52 Atrial Fib; Hypertension; Diabetes - NIDDM; Hyperlipidemia; CHF; Dementia; jl7 - PSHx: 13:52 Ablation; jl7 - Immunization history:: Adult Immunizations up to date. - Social history:: Smoking status: Patient reports the use of cigarette tobacco products, smokes one pack cigarettes per day. ROS: 18:46 Constitutional: Negative for fever, chills, and weight loss, Eyes: Negative for injury, kdr pain, redness, and discharge, Neck: Negative for injury, pain, and swelling, Abdomen/GI: Negative for abdominal pain, nausea, vomiting, diarrhea, and constipation, Back: Negative for injury and pain, : Negative for injury, bleeding, discharge, and swelling, MS/Extremity: Negative for injury and deformity, Skin: Negative for injury, rash, and discoloration, Neuro: Negative for headache, weakness, numbness, tingling, and seizure activity. Psych: Negative for depression, anxiety, suicide ideation, homicidal ideation, and hallucinations, Allergy/Immunology: Negative for hives, rash, and allergies, Endocrine: Negative for neck swelling, polydipsia, polyuria, polyphagia, and marked weight changes, Hematologic/Lymphatic: Negative for swollen nodes, abnormal bleeding, and unusual bruising. 18:46 Cardiovascular: Positive for chest pain, Negative for edema, orthopnea, palpitations. 18:46 Respiratory: Positive for dyspnea on exertion, shortness of breath, wheezing. Exam: 18:46 Constitutional: This is a well developed, well nourished patient who is awake, alert, kdr and in mild distress. Head/Face: Normocephalic, atraumatic. Eyes: Pupils equal round and reactive to light, extra-ocular motions intact. Lids and lashes normal. Conjunctiva and sclera are non-icteric and not injected. Cornea within normal limits. Periorbital areas with no swelling, redness, or edema. Neck: Trachea midline, no thyromegaly or masses palpated, and no cervical lymphadenopathy. Supple, full range of motion without nuchal rigidity, or vertebral point tenderness. No Meningismus. Chest/axilla: Normal chest wall appearance and motion. Nontender with no deformity. No lesions are appreciated. Cardiovascular: Regular rate and rhythm with a normal S1 and S2. No gallops, murmurs, or rubs. Normal PMI, no JVD. No pulse deficits. Abdomen/GI: Soft, non-tender, with normal bowel sounds. No distension or tympany. No guarding or rebound. No evidence of tenderness throughout. Back: No spinal tenderness. No costovertebral tenderness. Full range of motion. Skin: Warm, dry with normal turgor. Normal color with no rashes, no lesions, and no evidence of cellulitis. MS/ Extremity: Pulses equal, no cyanosis. Neurovascular intact. Full, normal range of motion. Neuro: Awake and alert, GCS 15, oriented to person, place, time, and situation. Cranial nerves II-XII grossly intact. Motor strength 5/5 in all extremities. Sensory grossly intact. Cerebellar exam normal. Normal gait. Psych: Awake, alert, with orientation to person, place and time. Behavior, mood, and affect are within normal limits. 18:46 Respiratory: mild respiratory distress is noted, Respirations: prolonged exhalation, pursed lip breathing, shallow respirations, that is moderate, tachypnea, Breath sounds: wheezing: expiratory is heard diffusely. Vital Signs: 13:47 Pulse Ox 96% on 3 lpm NC; em 13:47 BP 142 / 70; Pulse 88; Resp 43; Temp 98.9; Pulse Ox 89% on R/A; Pain 7/10; em 14:00 BP 139 / 84; Pulse 73; Resp 30; Pulse Ox 99% on Nebulizer Mask; em 15:02 BP 128 / 59; Pulse 68; Resp 24 S; Pulse Ox 94% on 2 lpm NC; ca1 15:51 BP 111 / 55; Pulse 68; Resp 25 S; Pulse Ox 93% on 2 lpm NC; ca1 16:50 BP 121 / 55; Pulse 67; Resp 23 S; Pulse Ox 93% on 2 lpm NC; ca1 17:36 BP 141 / 73; Pulse 72; Resp 28; Pulse Ox 91% on 3 lpm NC; ca1 17:49 Pulse 71; Resp 35; Pulse Ox 86% on 4 lpm NC; ca1 18:00 Pulse 82; Resp 32; Pulse Ox 98% on 10% Simple Mask; ca1 18:09 Pulse 75; Resp 22; Pulse Ox 97% on Nebulizer Mask; ca1 18:41 BP 142 / 67; Pulse 65; Resp 26 S; Pulse Ox 98% on 10% Simple Mask; ca1 19:47 BP 135 / 63; Pulse 65; Resp 25 S; Pulse Ox 96% on 10% Simple Mask; ca1 20:49 BP 120 / 53; Pulse 65; Resp 25 S; Pulse Ox 100% on R/A; ca1 21:50 BP 123 / 51; Pulse 65; Resp 20 S; Pulse Ox 98% on 4 lpm NC; mg2 MDM: 16:57 Patient medically screened. kdr 18:46 Data reviewed: vital signs, nurses notes, lab test result(s), radiologic studies. kdr Counseling: I had a detailed discussion with the patient and/or guardian regarding: the historical points, exam findings, and any diagnostic results supporting the discharge/admit diagnosis, lab results, radiology results, the need for further work-up and treatment in the hospital. 05/26 13:45 Order name: Basic Metabolic Panel; Complete Time: 14:56 [facility] 05/26 13:45 Order name: CBC with Diff [facility] 05/26 13:45 Order name: LFT's; Complete Time: 14:56 [facility] 05/26 13:45 Order name: Magnesium; Complete Time: 14:56 [facility] 05/26 13:45 Order name: NT PRO-BNP; Complete Time: 14:56 [facility] 05/26 13:45 Order name: PT-INR; Complete Time: 14:56 kdr 05/26 13:45 Order name: Troponin (emerg Dept Use Only); Complete Time: 14:56 [facility] 05/26 17:00 Order name: COVID-19 [facility] 05/26 17:12 Order name: Blood Culture Adult (2) [facility] 05/26 18:45 Order name: Basic Metabolic Panel [facility] 05/26 18:45 Order name: Basic Metabolic Panel [facility] 05/26 18:45 Order name: CBC with Automated Diff EDMS 05/26 18:45 Order name: CBC with Automated Diff EDMS 05/26 18:45 Order name: NT PRO-BNP [facility] 05/26 13:45 Order name: XRAY Chest (1 view); Complete Time: 14:56 kdr 05/26 15:41 Order name: CT Chest For PE Angio; Complete Time: 16:39 [facility] 05/26 18:45 Order name: NT PRO-BNP [facility] 05/26 18:45 Order name: Troponin I [facility] 05/26 18:45 Order name: Troponin I [facility] 05/26 18:45 Order name: Troponin I [facility] 05/26 19:53 Order name: CBC Smear Scan EDMS 05/26 13:45 Order name: EKG; Complete Time: 13:46 kdr 05/26 13:45 Order name: Cardiac monitoring; Complete Time: 13:51 kdr 05/26 13:45 Order name: EKG - Nurse/Tech; Complete Time: 13:51 kdr 05/26 13:45 Order name: IV Saline Lock; Complete Time: 13:51 kdr 05/26 13:45 Order name: Labs collected and sent; Complete Time: 13:51 kdr 05/26 13:45 Order name: O2 Per Protocol; Complete Time: 13:51 kdr 05/26 13:45 Order name: O2 Sat Monitoring; Complete Time: 13:51 kdr 05/26 18:45 Order name: Consistent Carb (ADA) 1800 O[place] EDMS Administered Medications: 14:07 Drug: Zofran (Ondansetron) 4 mg Route: IVP; Site: right wrist; em 14:30 Follow up: Response: No adverse reaction em 15:00 Follow up: Response: No adverse reaction; Nausea is decreased ca1 14:08 Drug: Xopenex (3) 1.25 mg Route: Inhalation; em 14:47 Follow up: Response: No adverse reaction; Marked relief of symptoms em 14:08 Drug: predniSONE 60 mg Route: PO; em 14:48 Follow up: Response: No adverse reaction em 15:00 Follow up: Response: No adverse reaction ca1 14:08 Drug: AtroVENT Aerosol 0.5 mg Route: Inhalation; em 14:47 Follow up: Response: No adverse reaction; Marked relief of symptoms em 14:09 Drug: morphine 4 mg Route: IVP; Site: right wrist; em 14:30 Follow up: Response: No adverse reaction; Pain is unchanged, physician notified em 15:00 Follow up: Response: No adverse reaction; Pain is decreased; RASS: Alert and Calm (0) ca1 14:12 Not Given (Duplicate Order): Xopenex (3) 1.25 mg Inhalation once em 14:12 Not Given (Duplicate Order): morphine 4 mg IVP once; RASS on ADMIN: Combtv4, Very em Agttd3, Agttd2, Rstlss1, AlertClm0, Drwsy-1, Lt Sdtn-2, Mod Sdtn-3, Dp Sdtn-4, UnArsble-5 14:13 Not Given (Duplicate Order): Zofran (Ondansetron) 4 mg IVP once; over 2 minutes em 14:13 Not Given (Duplicate Order): predniSONE 60 mg PO once em 17:48 Drug: Rocephin - (cefTRIAXone) 1 grams Route: IVPB; Infused Over: 30 mins; Site: right ca1 forearm; 18:09 Follow up: Response: No adverse reaction; IV Status: Completed infusion ca1 17:48 Drug: Zithromax 500 mg Route: PO; ca1 18:09 Follow up: Response: No adverse reaction ca1 18:07 Drug: LaSIX 20 mg Route: PO; ca1 18:44 Follow up: Response: No adverse reaction ca1 18:08 Drug: Albuterol - atroVENT (3:1) (2.5 mg - 0.5 mg) 3 ml Route: Nebulizer; ca1 18:44 Follow up: Response: No adverse reaction; Marked relief of symptoms ca1 Disposition: 05/26/20 17:24 Hospitalization ordered by Bang Blandon for Inpatient Admission. Preliminary diagnosis are Viral pneumonia, unspecified, Shortness of breath, Congestive heart failure. - Bed requested for Telemetry/MedSurg (Inpatient). - Status is Inpatient Admission. mg2 - Condition is Fair. - Problem is new. - Symptoms have improved. Signatures: Dispatcher [employer] EDMS Kris Evans MD MD kdr Sly Julien, RN RN em Frida Goodman RN RN jl7 Ck Oliva RN RN mg2 Elaine Anthony RN RN ca1 Pato Diaz tt3 Corrections: (The following items were deleted from the chart) 17:23 16:57 05/26/2020 16:57 Transfer ordered to [facility]. Diagnosis is kdr Pneumonia, unspecified organism; Shortness of breath. Reason for transfer: Higher level of care. Accepting physician is [facility]. Condition is Fair. Problem is new. Symptoms have improved. kdr 18:38 17:24 Hospitalization Ordered by David Kwan DO for Inpatient Admission. Preliminary kdr diagnosis is Viral pneumonia, unspecified; Shortness of breath; Congestive heart failure. Bed requested for Telemetry/MedSurg (Inpatient). Status is Inpatient Admission. Condition is Fair. Problem is new. Symptoms have improved. kdr 19:39 18:38 05/26/2020 17:24 Hospitalization Ordered by Bang Blandon MD for Inpatient tt3 Admission. Preliminary diagnosis is Viral pneumonia, unspecified; Shortness of breath; Congestive heart failure. Bed requested for Telemetry/MedSurg (Inpatient). Status is Inpatient Admission. Condition is Fair. Problem is new. Symptoms have improved. kdr 22:18 19:39 05/26/2020 17:24 Hospitalization Ordered by Bang Blandon MD for Inpatient mg2 Admission. Preliminary diagnosis is Viral pneumonia, unspecified; Shortness of breath; Congestive heart failure. Bed requested for Telemetry/MedSurg (Inpatient). Status is Inpatient Admission. Condition is Fair. Problem is new. Symptoms have improved. tt3
[2020-05-26] MEDS ORDERED: CEFTRIAXONE/SWI 1gm 1 GM/10 ML SYR ONE (17:50)
[2020-05-26] MEDS ORDERED: AZITHROMYCIN 250 MG TAB ONE (17:51)
[2020-05-26] MEDS ORDERED: FUROSEMIDE 20 MG TABLET ONE (18:09)
--- OUTSIDE RECORDS SUMMARY | 2020-05-26 18:12 | XMS REPORT | Clinical Summary ---
:[address] [facility] Address [address] [place] [address] Care Team Providers Name Role Phone Robert Freitas Primary Care Provider Allergies No Known Allergies Medications Medication Sig Dispensed Refills Start Date End Date Status aspirin-sod bicarb-citric Take 750 mg by 0 Active acid (NORBERTO-SELTZER) 324 mouth every 6 mg TbEF (six) hours as needed. aspirin 81 MG EC tablet Take 81 mg by 0 Active mouth daily. carvedilol (COREG) 25 MG Take 25 mg by 0 Active tablet mouth 2 (two) times daily with breakfast and dinner. rosuvastatin (CRESTOR) 20 Take 20 mg by 0 Active MG tablet mouth daily. DULoxetine (CYMBALTA) 60 Take 60 mg by 0 Active MG capsule mouth daily. divalproex (DEPAKOTE) 500 Take 500 mg by 0 Active MG EC tablet mouth 2 (two) times daily. EUVHMKOQ-[id number]-EWD Take by mouth 2 0 Active 2-C-D3-YOLIE (two) times ORALIndications: daily. arthritis, (1500/1200/500) hydroCHLOROthiazide Take 25 mg by 0 Active (HYDRODIURIL) 25 MG mouth daily. tablet lisinopril Take 10 mg by 0 Activ e (PRINIVIL,ZESTRIL) 10 MG mouth daily. tablet metFORMIN (GLUCOPHAGE) Take 500 mg by 0 Active 500 MG tablet mouth 2 (two) times daily with breakfast and dinner. nitroglycerin (NITROSTAT) Place 0.4 mg 0 Active 0.4 MG SL tablet under the tongue every 5 (five) minutes as needed for Chest pain Put 1 pill under tongue every 5min as needed for chest pain.No more than 3 doses in 15min.Call 911 if pain is unrelieved 5min after 1st dose . nitroglycerin (NITRODUR) Place 1 patch 0 Active 0.2 mg/hr patch onto the skin daily. C,E,ZINC,COPPER Take by mouth. 0 Active 11/FKOOC2H/LUT (OCUVITE ADULT 50+ ORAL) omeprazole (PRILOSEC) 40 Take 40 mg by 0 Active MG capsule mouth daily. ranitidine (ZANTAC) 300 Take 300 mg by 0 Active MG capsule mouth every evening. rivastigmine (EXELON) 4.6 Place 1 patch 0 Active mg/24 hr patch onto the skin daily. traZODone (DESYREL) 50 MG Take 50 mg by 0 Active tablet mouth nightly. acetaminophen (TYLENOL) Take 650 mg by 0 Active 325 MG tablet mouth every 6 (six) hours as needed for Pain. rivaroxaban (XARELTO) 20 Take by mouth 0 Active mg Tab tablet daily with dinner. Active Problems Problem Noted Date Unstable angina 03/23/2018 Stroke-like symptoms Transient alteration of awareness Social History Tobacco Use Types Packs/Day Years Used Date Current Every Day Smoker Smokeless Tobacco: Never Used Alcohol Use Drinks/Week oz/Week Comments Yes 8 Cans of beer 4.8 8 cans of beers/ day Sex Assigned at Date Recorded Not on file Job Start Date Occupation Industry Not on file Not on file Not on file Travel History Travel Start Travel End No recent travel history available. Last Filed Vital Signs Not on file Plan of Treatment Not on file Results Not on fileafter 05/26/2019 Insurance Payer Benefit Plan / Group Subscriber ID Type Phone A ddress [employer] - MEDICARE MGD [employer] MEDICARE ADV xxxxxxxxx [facility] Contracted CARE Advance Directives For more information, please contact:[address] [phone] Code Status Date Activated Date Inactivated Comments Full Code 03/26/2018 5:36 AM 03/26/2018 11:33 PM This code status was determined by: Patient Full Code 03/23/2018 2:24 AM 03/26/2018 5:36 AM This code status was determined by: Patient
--- OUTSIDE RECORDS SUMMARY | 2020-05-26 18:12 | XMS REPORT | Clinical Summary ---
:1940 Author Organization [facility] Address [address] [place] [address] Care Team Providers Name Role Phone Asked, No Pcp Primary Care Provider Unavailable Allergies No Known Allergies Medications Medication Sig Dispensed Refills Start End Date Status Date aspirin (ECOTRIN) 81 MG Take 81 mg 0 Active enteric coated tablet by mouth daily. carvedilol (COREG) 25 Take 25 mg 0 Active MG tablet by mouth 2 (two) times a day with meals. rosuvastatin (CRESTOR) Take 20 mg 0 Active 20 MG tablet by mouth daily. flecainide (TAMBOCOR) Take 50 mg 0 Active 50 MG tablet by mouth 2 (two) times a day. hydroCHLOROthiazide Take 25 mg 0 Active (HYDRODIURIL) 25 MG by mouth tablet daily. metFORMIN (GLUCOPHAGE) Take 500 mg 0 Active 500 mg tablet by mouth 2 (two) times a day with meals. nitroglycerin Place 0.4 0 Active (NITROSTAT) 0.4 MG SL mg under tablet the tongue every 5 (five) minutes as needed for chest pain. vit A,C and Take by 0 Active P-slcoaf-cosjigxr mouth (OCUVITE WITH LUTEIN) daily. 1,000 unit-200 mg-60 unit-2 mg tablet per tablet omeprazole (PriLOSEC) Take 40 mg 0 Active 40 MG capsule by mouth daily. ranitidine (ZANTAC) 150 Take 300 mg 0 Active MG tablet by mouth nightly. rivastigmine (EXELON) Place 1 0 Active 4.6 mg/24 hr patch on the skin daily. folic acid (FOLVITE) 1 Take 1 30 tablet 11 0 Active MG tablet tablet (1 9 20 mg total) by mouth daily. magnesium oxide Take 1 30 tablet 1 08/14/20 Acti ve (MAG-OX) 400 mg (241.3 tablet (400 9 20 mg magnesium) tablet mg total) by mouth 2 (two) times a day. multivitamin Take 1 60 tablet 1 Active (THERAGRAN) tablet tablet by 9 mouth daily. thiamine mononitrate, Take 1 30 tablet 1 Active vit B1, (B-1) 100 mg tablet (100 9 tablet mg total) by mouth daily. lisinopril Take 1 30 tablet 11 08/15/20 Active (PRINIVIL,ZESTRIL) 20 tablet (20 9 20 mg tablet mg total) by mouth daily. lisinopril Take 10 mg 0 08/15/20 Disconti nued (PRINIVIL,ZESTRIL) 10 by mouth 19 (Stop Taking at mg tablet daily. Discharge) acetaminophen (TYLENOL) Take 650 mg 0 07/27 12/14 Discontinued 325 MG tablet by mouth 19 (Stop Taking at every 6 Discharge) (six) hours as needed for mild pain or fever. rivaroxaban (XARELTO) Take 20 mg 0 0 Discontinued 20 mg tablet by mouth 19 (Stop T aking at daily. Discharge) ALPRAZolam (XANAX) 0.5 Take 1 30 tablet 1 0 MG tablet tablet (0.5 9 19 mg total) by mouth 2 (two) times a day as needed for anxiety for up to 30 days. Active Problems Problem Noted Date Anticoagulant long-term use 08/08/2019 Pacemaker 08/08/2019 Acute post-hemorrhagic anemia 08/08/2019 Paroxysmal atrial fibrillation 08/08/2019 Melena 08/07/2019 Overview: Added automatically from request for chary moore [id number] Encounters Date Type Specialty Care Team Description 08/12/20 Surgery Gastroenterology Yo, SMALL BOWEL CAPSULE Kamaljit Alvarado MD 08/11/20 Surgery Gastroenterology Yo, COLONOSCOPY WITH POLYPECTOMY Kamaljit Alvarado MD AND CLIPPING 08/11/20 Anesthesia Event [facility]ology [facility]ido Ro, 19 [facility] [place] Krueger MD 08/08/20 Anesthesia Event General Surgery Oliver, 19 MD Oseas Siddiqi Jennifer 08/08/20 Surgery General Surgery Yo, ESOPHAGOGAST RODUODENOSCOPY Kamaljit Alvarado MD (EGD) 08/08/20 Documentation Neurological Danyelle Casarez, 19 Intensive Care RN 08/07/20 Hospital Neurosurgery Ron Contreras Melena (Primary Dx); 19 - Encounter Anticoagulant long-term use; 08/15/20 Leatha Irvin Acute post-hem orrhagic anemia; Kamaljit Prasad MD Paroxysmal atri al fibrillation (HCC) 08/07/20 Intake Access 19 after 05/26/2019 Social History Tobacco Use Types Packs/Day Years Used Date Current Every Day Smoker 0.5 Smokeless Tobacco: Never Used Alcohol Use Drinks/Week oz/Week Comments Yes 6 Cans of beer 6.0 Sex Assigned at Date Recorded Not on file Job Start Date Occupation Industry Not on file Not on file Not on file Travel History Travel Start Travel End No recent travel history available. Last Filed Vital Signs Vital Sign Reading Time Taken Comments Blood Pressure 150/67 08/15/2019 12:15 PM CDT Pulse 60 08/15/2019 11:50 AM CDT Temperature 36.9 C (98.4 F) 08/15/2019 11:50 AM CDT Respiratory Rate 18 08/15/2019 11:50 AM CDT Oxygen Saturation 96% 08/15/2019 11:50 AM CDT Inhaled Oxygen Concentration - - Weight 102 kg (225 lb) 08/07/2019 5:56 PM CDT Height 177.8 cm (5' 10") 08/11/2019 2:42 PM CDT Body Mass Index 32.28 08/07/2019 5:56 PM CDT Plan of Treatment Health Maintenance Due Date Last Done Comments SHINGLES VACCINES (#1) 02/20/1992 65+ PNEUMOCOCCAL VACCINE (1 of 2 - PCV13) 2007 INFLUENZA VACCINE 06/25/2020 Implants Implanted Type Area Pst Manager Device Shelf Model / Identifier Expiration Serial / Date Lot Clip Resolution 360 235cm 2.8mm (10/Bx) - [id number] Medical N/A: N/A [employer] END[employer]COPY [id number] / Implanted: 08/11/2019 at [facility] (Quantity not on file) Clips for / Internal Use Clip Resolution 360 235cm 2.8mm (10Bx) - [id number] Medical N/A: N/A [employer] ENDOSCOPY [id number] / Implanted: 08/11/2019 at [facility] (Quantity not on file) Clips for / Internal Use Clip Resolution 360 235cm 2.8mm (10/Bx) - [id number] Medical N/A: N/A [employer] ENDOSCOPY [id number] / Implanted: 08/11/2019 at [facility] (Quantity not on file) Clips for / Internal Use Clip Resolution 360 235cm 2.8mm (10/Bx) - [id number] Medical N/A: N/A [employer] ENDOSCOPY [id number] / Implanted: 08/11/2019 at [facility] (Quantity not on file) Clips for / Internal Use Procedures Procedure Name Priority Date/Time Associated Comments Diagnosis POC GLUCOSE Routine 08/15/2019 Results for 11:49 AM CDT this procedure are in the results section. POC GLUCOSE Routine 08/15/2019 Results for 8:26 AM CDT this procedure are in the results section. POC GLUCOSE Routine 08/14/2019 Results for 8:41 PM CDT this procedure are in the results section. POC GLUCOSE Routine 08/14/2019 Results for 7:10 AM CDT this procedure are in the results section. HC COMPLETE BLD COUNT W/AUTO Routine 08/14/2019 Results for DIFF 12:17 AM CDT this procedure are in the results section. POC GLUCOSE Routine 08/13/2019 Results for 9:18 PM CDT this procedure are in the results section. POC GLUCOSE Routine 08/13/2019 Results for 12:18 PM CDT this procedure are in the results section. POC GLUCOSE Routine 08/13/2019 Results for 8:11 AM CDT this procedure are in the results section. HC COMPLETE BLD COUNT W/AUTO Routine 08/13/2019 Results for DIFF 5:25 AM CDT this procedure are in the results section. ESTIMATED GFR Routine 08/13/2019 Results for 4:00 AM CDT this procedure are in the results section. MAGNESIUM LEVEL Routine 08/13/2019 Results for 4:00 AM CDT this procedure are in the results section. BASIC METABOLIC PANEL Routine 08/13/2019 Result s for 4:00 AM CDT this procedure are in the results section. POC GLUCOSE Routine 08/12/2019 Results for 9:12 PM CDT this procedure are in the results section. POC GLUCOSE Routine 08/12/2019 Results for 4:36 PM CDT this procedure are in the results section. POC GLUCOSE Routine 08/12/2019 Results for 11:52 AM CDT this procedure are in the results section. HEMOGLOBIN & HEMATOCRIT Timed 08/12/2019 Resu lts for 10:01 AM CDT this procedure are in the results section. SMALL BOWEL CAPSULE 08/12/2019 Melena 9:35 AM CDT POC GLUCOSE Routine 08/12/2019 Results for 8:17 AM CDT this procedure are in the results section. ESTIMATED GFR Routine 08/12/2019 Results for 12:17 AM CDT this procedure are in the results section. HC COMPLETE BLD COUNT W/AUTO Routine 08/12/2019 Results for DIFF 12:17 AM CDT this procedure are in the results section. MAGNESIUM LEVEL Routine 08/12/2019 Results for 12:17 AM CDT this procedure are in the results section. BASIC METABOLIC PANEL Routine 08/12/2019 Result s for 12:17 AM CDT this procedure are in the results section. HEMOGLOBIN & HEMATOCRIT Timed 08/12/2019 Resu lts for 12:17 AM CDT this procedure are in the results section. POC GLUCOSE Routine 08/11/2019 Results for 10:19 PM CDT this procedure are in the results section. SURGICAL PATHOLOGY REQUEST Routine 08/11/2019 R esults for 6:01 PM CDT this procedure are in the results section. POC GLUCOSE Routine 08/11/2019 Results for 4:03 PM CDT this procedure are in the results section. COLONOSCOPY 08/11/2019 Melena 2:58 PM CDT HEMOGLOBIN & HEMATOCRIT Timed 08/11/2019 Resu lts for 11:00 AM CDT this procedure are in the results section. ESTIMATED GFR Routine 08/11/2019 Results for 3:33 AM CDT this procedure are in the results section. MAGNESIUM LEVEL Routine 08/11/2019 Results for 3:33 AM CDT this procedure are in the results section. BASIC METABOLIC PANEL Routine 08/11/2019 Result s for 3:33 AM CDT this procedure are in the results section. HEMOGLOBIN & HEMATOCRIT Routine 08/11/2019 Resu lts for 3:00 AM CDT this procedure are in the results section. B NATRIURETIC PEPTIDE Routine 08/11/2019 Result s for 3:00 AM CDT this procedure are in the results section. HEMOGLOBIN & HEMATOCRIT Timed 08/11/2019 Resu lts for 3:00 AM CDT this procedure are in the results section. HEMOGLOBIN & HEMATOCRIT Timed 08/10/2019 Resu lts for 11:10 AM CDT this procedure are in the results section. POC GLUCOSE Routine 08/10/2019 Results for 8:25 AM CDT this procedure are in the results section. ESTIMATED GFR Routine 08/10/2019 Results for 12:15 AM CDT this procedure are in the results section. MAGNESIUM LEVEL Routine 08/10/2019 Results for 12:15 AM CDT this procedure are in the results section. IONIZED CALCIUM Routine 08/10/2019 Results for 12:15 AM CDT this procedure are in the results section. PHOSPHORUS LEVEL Routine 08/10/2019 Results for 12:15 AM CDT this procedure are in the results section. HC COMPLETE BLD COUNT W/AUTO Routine 08/10/2019 Results for DIFF 12:15 AM CDT this procedure are in the results section. BASIC METABOLIC PANEL Routine 08/10/2019 Result s for 12:15 AM CDT this procedure are in the results section. HEMOGLOBIN & HEMATOCRIT Timed 08/09/2019 Resu lts for 10:22 PM CDT this procedure are in the results section. POC GLUCOSE Routine 08/09/2019 Results for 7:53 PM CDT this procedure are in the results section. HEMOGLOBIN & HEMATOCRIT Timed 08/09/2019 Resu lts for 5:37 PM CDT this procedure are in the results section. HEMOGLOBIN & HEMATOCRIT Timed 08/09/2019 Resu lts for 12:57 PM CDT this procedure are in the results section. CT HEAD WO CONTRAST STAT 08/09/2019 Results for 11:27 AM CDT this procedure are in the results section. TRANSFUSE RED BLOOD CELLS Routine 08/09/2019 9:20 AM CDT HC COMPLETE BLD COUNT W/AUTO Routine 08/09/2019 Results for DIFF 6:05 AM CDT this procedure are in the results section. XR CHEST 1 VW PORTABLE Routine 08/09/2019 Resul ts for 5:32 AM CDT this procedure are in the results section. ESTIMATED GFR Routine 08/09/2019 Results for 4:00 AM CDT this procedure are in the results section. IONIZED CALCIUM Routine 08/09/2019 Results for 4:00 AM CDT this procedure are in the results section. MAGNESIUM LEVEL Routine 08/09/2019 Results for 4:00 AM CDT this procedure are in the results section. PHOSPHORUS LEVEL Routine 08/09/2019 Results for 4:00 AM CDT this procedure are in the results section. BASIC METABOLIC PANEL Routine 08/09/2019 Result s for 4:00 AM CDT this procedure are in the results section. TRANSFUSE RED BLOOD CELLS Routine 08/09/2019 12:04 AM CDT TROPONIN Timed 08/09/2019 Results for 12:00 AM CDT this procedure are in the results section. TTE COMPLETE, WO CONTRAST, W STAT 08/08/2019 Results for DOPPLER ([id number]) 9:15 PM CDT this procedu re are in the results section. POC GLUCOSE Routine 08/08/2019 Results for 7:53 PM CDT this procedure are in the results section. TROPONIN Routine 08/08/2019 Results for 6:15 PM CDT this procedure are in the results section. HEMOGLOBIN & HEMATOCRIT Routine 08/08/2019 Resu lts for 6:15 PM CDT this procedure are in the results section. XR CHEST 1 VW PORTABLE STAT 08/08/2019 Resul ts for 2:31 PM CDT this procedure are in the results section. TRANSFUSE RED BLOOD CELLS STAT 08/08/2019 2:24 PM CDT ECG 12-LEAD Routine 08/08/2019 Results for 1:52 PM CDT this procedure are in the results section. POC GLUCOSE Routine 08/08/2019 Results for 1:51 PM CDT this procedure are in the results section. HC COMPLETE BLD COUNT W/AUTO STAT 08/08/2019 Results for DIFF 12:41 PM CDT this procedure are in the results section. ESTIMATED GFR STAT 08/08/2019 Results for 12:30 PM CDT this procedure are in the results section. TROPONIN STAT 08/08/2019 Results for 12:30 PM CDT this procedure are in the results section. COMPREHENSIVE METABOLIC PANEL STAT 08/08/2019 Results for 12:30 PM CDT this procedure are in the results section. PHOSPHORUS LEVEL STAT 08/08/2019 Results for 12:30 PM CDT this procedure are in the results section. MAGNESIUM LEVEL STAT 08/08/2019 Results for 12:30 PM CDT this procedure are in the results section. ECG 12-LEAD STAT 08/08/2019 Results for 11:45 AM CDT this procedure are in the results section. ESOPHAGOGASTRODUODENOSCOPY (EGD) 08/08/2019 Melena 10:30 AM CDT HEMOGLOBIN & HEMATOCRIT Routine 08/08/2019 Resu lts for 8:10 AM CDT this procedure are in the results section. TRANSFUSE RED BLOOD CELLS Routine 08/08/2019 7:40 AM CDT POC GLUCOSE Routine 08/08/2019 Results for 7:26 AM CDT this procedure are in the results section. TRANSFUSE RED BLOOD CELLS Routine 08/08/2019 7:04 AM CDT XR CHEST 1 VW PORTABLE STAT 08/08/2019 Resul ts for 4:14 AM CDT this procedure are in the results section. IONIZED CALCIUM Routine 08/08/2019 Results for 3:46 AM CDT this procedure are in the results section. POC GLUCOSE Routine 08/08/2019 Results for 3:28 AM CDT this procedure are in the results section. MANUAL DIFFERENTIAL Routine 08/08/2019 Results for 2:00 AM CDT this procedure are in the results section. ESTIMATED GFR Routine 08/08/2019 Results for 2:00 AM CDT this procedure are in the results section. PHOSPHORUS LEVEL Routine 08/08/2019 Results for 2:00 AM CDT this procedure are in the results section. MAGNESIUM LEVEL Routine 08/08/2019 Results for 2:00 AM CDT this procedure are in the results section. IONIZED CALCIUM Routine 08/08/2019 Results for 2:00 AM CDT this procedure are in the results section. CBC WITH PLATELET AND Routine 08/08/2019 Result s for DIFFERENTIAL 2:00 AM CDT this procedure are in the results section. BASIC METABOLIC PANEL Routine 08/08/2019 Result s for 2:00 AM CDT this procedure are in the results section. TRANSFUSE RED BLOOD CELLS Routine 08/08/2019 1:20 AM CDT TRANSFUSE RED BLOOD CELLS Routine 08/07/2019 11:41 PM CDT POC GLUCOSE Routine 08/07/2019 Results for 11:39 PM CDT this procedure are in the results section. DIRECT LYNETTE' (ZENOBIA) Routine 08/07/2019 Results for 9:05 PM CDT this procedure are in the results section. POSITIVE ZENOBIA REFLEX WITH SALINE Routine 08/07/2019 Results for 9:05 PM CDT this procedure are in the results section. POC GLUCOSE Routine 08/07/2019 Results for 8:12 PM CDT this procedure are in the results section. CT HEAD WO CONTRAST STAT 08/07/2019 Results for 7:45 PM CDT this procedure are in the results section. TTE COMPLETE, WO CONTRAST, W STAT 08/07/2019 Results for DOPPLER ([id number]) 6:00 PM CDT this procedu re are in the results section. PREPARE RBC STAT 08/07/2019 Results for 5:00 PM CDT this procedure are in the results section. PREPARE RBC STAT 08/07/2019 Results for 5:00 PM CDT this procedure are in the results section. PREPARE RBC STAT 08/07/2019 Results for 5:00 PM CDT this procedure are in the results section. PREPARE RBC STAT 08/07/2019 Results for 5:00 PM CDT this procedure are in the results section. PREPARE RBC STAT 08/07/2019 Results for 5:00 PM CDT this procedure are in the results section. SMEAR REVIEW STAT 08/07/2019 Results for 5:00 PM CDT this procedure are in the results section. TYPE AND SCREEN STAT 08/07/2019 Results for 5:00 PM CDT this procedure are in the results section. HEMOGLOBIN A1C STAT 08/07/2019 Results for 5:00 PM CDT this procedure are in the results section. PARTIAL THROMBOPLASTIN TIME STAT 08/07/2019 Results for (PTT) 5:00 PM CDT this procedure are in the results section. PROTHROMBIN TIME WITH INR STAT 08/07/2019 Re sults for 5:00 PM CDT this procedure are in the results section. HC COMPLETE BLD COUNT W/AUTO STAT 08/07/2019 Results for DIFF 5:00 PM CDT this procedure are in the results section. XR ABDOMEN 1 VW PORTABLE STAT 08/07/2019 Res ults for 3:44 PM CDT this procedure are in the results section. XR CHEST 1 VW PORTABLE STAT 08/07/2019 Resul ts for 3:44 PM CDT this procedure are in the results section. POC GLUCOSE Routine 08/07/2019 Results for 3:12 PM CDT this procedure are in the results section. ESTIMATED GFR STAT 08/07/2019 Results for 3:06 PM CDT this procedure are in the results section. LACTIC ACID LEVEL STAT 08/07/2019 Results fo r 3:06 PM CDT this procedure are in the results section. T4, FREE STAT 08/07/2019 Results for 3:06 PM CDT this procedure are in the results section. THYROID STIMULATING HORMONE STAT 08/07/2019 Results for 3:06 PM CDT this procedure are in the results section. PHOSPHORUS LEVEL STAT 08/07/2019 Results for 3:06 PM CDT this procedure are in the results section. MAGNESIUM LEVEL STAT 08/07/2019 Results for 3:06 PM CDT this procedure are in the results section. IONIZED CALCIUM STAT 08/07/2019 Results for 3:06 PM CDT this procedure are in the results section. COMPREHENSIVE METABOLIC PANEL STAT 08/07/2019 Results for 3:06 PM CDT this procedure are in the results section. after 05/26/2019 Results POC glucose (08/15/2019 11:49 AM CDT)Only the most recent of22 resultswithin the time period is included. Pathologist Sig nature POC glucose 127 (H) 65 - 99 mg/dL [facility] Comment: HOSPITAL No Action Needed Meter ID: [id number] Associate Producer: Ryan Lassiter Specimen Performing Organization Address City/State/Zipcode Phone Number [facility] DEPARTMENT OF PATHOLOGY AND [address] [place], [place] [phone] GENOMIC MEDICINE [facility] [address] [place] [address] CBC with platelet and differential (08/14/2019 12:17 AM CDT)Only the most recent of8 resultswithin the time period is included. WBC 5.84 4.50 - 11.[address] [facility] k/uL [facility] RBC 3.27 (L) 4.40 - 6.[address] [facility] m/[facility] HGB 9.4 (L) 14.0 - 18.[address] [facility] g/dL [facility] HCT 30.3 (L) 41.0 - 51.0 % [facility] MCV 92.7 82.0 - 100.0 [facility] MCH 28.7 27.0 - 34.0 pg [facility] MCHC 31.0 31.0 - 37.[address] [facility] [place] [place] RDW - SD 50.6 37.0 - 55.0 fL [facility] MPV 10.5 8.8 - 13.2 fL [facility] Platelet count 133 (L) 150 - 400 k/uL [facility] Nucleated RBC 0.00 /100 WBC [facility] Neutrophils 61.1 39.0 - 69.0 % [facility] Lymphocytes 24.5 (L) 25.0 - 45.0 % [facility] Monocytes 12.5 (H) 0.0 - 10.0 % [facility] Eosinophils 1.2 0.0 - 5.0 % [facility] Basophils 0.5 0.0 - 1.0 % [facility] Immature granulocytes 0.2Comment: 0.0 - 1.0 % [facility] "Immature HOSPITAL granulocytes" (promyelocytes , myelocytes, metamyelocytes ) Specimen Blood Performing Organization Address [facility] Phone Number [facility] DEPARTMENT OF PATHOLOGY AND [address] [place] [address] [place] [phone] Estimated GFR (08/13/2019 4:00 AM CDT)Only the most recent of8 resultswithin the time period is included. Estimated GFR 71 mL/min/1.[address] [facility] Comment: m2 HOSPITAL Catergory Units Interpretation G1 >=90 Normal or high G2 60-89 Mildly decreased G3a 45-59 Mildly to moderately decreas ed G3b 30-44 Moderately to severely decre ased G4 15-29 Severely decreased G5 <15 Kidney failure The eGFR was calculated using the Chronic Kidney Disea se Epidemiology Collaboration (CKD-EPI) equation. Interpretation is based on recommendations of the National Kidney Foundation-Kidney Disease Outcomes Nolan lity Initiative (NKF-KDOQI) published in 2014. Specimen Plasma specimen Performing Organization Address [facility] [place] Phone Number [facility] DEPARTMENT OF PATHOLOGY AND [address] [place] [phone] Magnesium level (08/13/2019 4:00 AM CDT)Only the most recent of8 resultswithin the time period is included. Pathologist Sig [facility] Magnesium 2.2 1.6 - 2.4 mg/dL [facility] Specimen Plasma specimen Performing Organization Address City/[facility] Phone Number [facility] DEPARTMENT OF PATHOLOGY AND [address] [place] [address] [phone] [address] Basic metabolic panel (08/13/2019 4:00 AM CDT)Only the most recent of6 results within the time period is included. Pathologist Sig nature Sodium 141 135 - 148 mEq/L [facility] Potassium 4.3 3.5 - 5.0 mEq/L [facility] Chloride 107 98 - 112 mEq/L [facility] CO2 22 (L) 24 - 31 mEq/L [facility] Anion gap 12@ANIO 7 - 15 mEq/L [facility] BUN 7 (L) 8 - 23 mg/dL [facility] Creatinine 1.01 0.70 - 1.20 mg/dL [facility] MARY KAY Glucose 105 (H) 65 - 99 mg/dL [facility] Calcium 8.7 (L) 8.8 - 10.2 mg/dL [facility] Specimen Plasma specimen Performing Organization Address City/[facility]/Zipcode Phone Number [facility] DEPARTMENT OF PATHOLOGY AND [address] [place] [phone] GENOMIC MEDICINE [address] [address] Hemoglobin & hematocrit (08/12/2019 10:01 AM CDT)Only the most recent of11 resultswithin the time period is included. Pathologist Sig nature HGB 10.1 (L) 14.0 - 18.0 g/dL [facility] HCT 32.4 (L) 41.0 - 51.0 % [facility] Specimen Blood Performing Organization Address [facility] Phone Number [facility] DEPARTMENT OF PATHOLOGY AND [address] [place] [address] [phone] [address] Surgical pathology request (08/11/2019 6:01 PM CDT) [facility] DEPARTMENT OF PATHOLOGY AND GENOMIC MEDICINE Surgical pathology See link below [facility] DEPARTMENT OF report for PDF Lab PATHOLOGY AND Report GENOMIC MEDICINE Result status This is Final [facility] DEPARTMENT OF Report for PATHOLOGY AND [id number] GENOMIC MEDICINE Specimen Performing Organization Address City/[facility] Phone Number [facility] DEPARTMENT OF PATHOLOGY AND [address] [place] [phone] GENOMIC MEDICINE B natriuretic peptide (08/11/2019 3:00 AM CDT) Pathologist Sig nature BNP 207 (H) 0 - 100 pg/mL [facility] Specimen Blood Performing Organization Address City/[facility] Phone Number [facility] DEPARTMENT OF PATHOLOGY AND [address] [place] [phone] GENOMIC MEDICINE [address] [address] Phosphorus level (08/10/2019 12:15 AM CDT)Only the most recent of5 resultswithin the time period is included. Pathologist Sig nature Phosphorus 3.0 2.4 - 4.5 mg/dL [facility] Specimen Plasma specimen Performing Organization Address City/[facility] Phone Number [facility] DEPARTMENT OF PATHOLOGY AND [address] [place] [address] [phone] [facility] [address] [place] [address] Ionized calcium (08/10/2019 12:15 AM CDT)Only the most recent of5 resultswithin the time period is included. Pathologist Sig nature pH 7.45 [facility] Ionized calcium 1.17 1.11 - 1.32 mmol/L [facility] Specimen Plasma specimen Performing Organization Address [facility] Phone Number [facility] DEPARTMENT OF PATHOLOGY AND [address] [place] [address] [address] [address] Head Wo Contrast (08/09/2019 11:27 AM CDT)Only the most recent of2 results within the time period is included. Specimen Narrative Performed At EXAMINATION: CT HEAD WO CONTRAST HM [facility] CLINICAL HISTORY: Follow up acute stroke vs recurde scence of prior stroke can't have MRI COMPARISON: Head CT scan dated 2018 TECHNIQUE: Noncontrast enhanced images of the brain we re obtained from the skull base to the vertex. Both soft tissue and bon e reconstruction algorithms were performed. CT scans are performed using radiation dose reduction techniques. Technical factors are evaluated and adjusted to ensu re appropriate moderation of exposure. Automated dose management te chnology is applied to adjust radiation exposure whi le achieving a diagnostic quality image. FINDINGS: The ventricles, sulci and CSF-containing spaces are no rmal size and configuration for the patient's age. Small hypodense areas seen within the supratentorial w dante matter without associated vasogenic edema. The arvizu-white matter interface is within normal limit s. There is no evidence of mass, hemorrhage or extraaxial fluid colle ction. There is no evidence of midline shift or brain he rniation. There is no other macrostructural abnormalities within the cerebral hemispheres, basal ganglia, brainstem or cerebellum. The visualized bony structures are unrem arkable. The paranasal sinuses are well aerated. Status post cataract surgery seen bilaterally. Borderl ine bilateral exophthalmos. IMPRESSION: Negative for acute intracranial abnormality, mass, hem orrhage, extra-axial fluid collection or hydrocep halus. [id number] Procedure Note Interface, Radiology Results Incoming - 08/09/2019 11:33 AM CDT EXAMINATION: CT HEAD WO CONTRAST CLINICAL HISTORY: Follow up acute stro ke vs recurdescence of prior stroke can't have MRI COMPARISON: Head CT scan dated 2018 TECHNIQUE: Noncontrast enhanced images o f the brain were obtained from the skull base to the vertex. Both soft tissue and bone reconstruction algorithms were performed. CT scans are performed using radiation d ose reduction techniques. Technical factors are evaluated and adjusted to ensure appropriate moderation of exposure. Automated dose management technology is applied to adjust radiation exposure while achie ving a diagnostic quality image. FINDINGS: The ventricles, sulci and CSF-containing spaces are normal size and configuration for the patient's age. Small hypodense areas seen within the canales pratentorial white matter without associated vasogenic edema. The arvizu-white matter interface is withi n normal limits. There is no evidence of mass, hemorrhage or extraaxial fluid collection. There is no evidence of midline shift or brain herniation. There is no other macrostructural abnorm alities within the cerebral hemispheres, basal ganglia, brainstem or cerebellum. The visualized bony structures are unrem arkable. The paranasal sinuses are well aerated. Status post cataract surgery seen bilate rally. Borderline bilateral exophthalmos. IMPRESSION: Negative for acute intracranial abnormal ity, mass, hemorrhage, extra-axial fluid collection or hydrocephalus. [id number] Performing Organization Address City/State/Zipcode Phone Number [facility] [address] [place] [address] XR Chest 1 Vw Portable (08/09/2019 5:32 AM CDT)Only the most recent of4 results within the time period is included. Specimen Narrative Performed At EXAMINATION: XR CHEST 1 VW PORTABLE [facility] CLINICAL HISTORY: ICU pt stable with no clinical status changes COMPARISON: Recent chest IMPRESSION: Support hardware projects in good and similar position . Stable mild enlargement of the cardiomediastinal silhouette. Aorti c arch is heavily calcified. Lungs are hyperexpanded. Peribronchial cuffing may be due to bronchitis or mild edema. Patchy foci of scarring bilaterally. No confluent airs pace opacity, pleural effusion, or pneumothorax. [facility]-[id number] Procedure Note Interface, Radiology Results Incoming - 08/09/2019 6:50 AM CDT EXAMINATION: XR CHEST 1 VW PORTABLE CLINICAL HISTORY: ICU pt stable with n o clinical status changes COMPARISON: Recent chest IMPRESSION: Support hardware projects in good and si milar position. Stable mild enlargement of the cardiomediastinal silhouette. Aortic arch is heavily calcified. Lungs are hyperexpanded. Peribronchial c uffing may be due to bronchitis or mild edema. Patchy foci of scarring bilaterally. No confluent airspace opacity, pleural effusion, or pneumothorax. [facility]-[id number] Performing Organization Address [facility] Phone Number [facility] [address] [place] [address] Troponin (08/09/2019 12:00 AM CDT)Only the most recent of3 resultswithin the time period is included. Troponin 0.045 (H) 0.000 - 0.[address] [facility] Comment: ng/mL [facility] changed methodology eff ective: 03/31/2019 at 10:00 am The new method has a 99th percentile cutoff of 0.040 n g/mL Specimen Plasma specimen Performing Organization Address [facility] [place] Phone Number [facility] DEPARTMENT OF PATHOLOGY AND [address] [place] [address] 7703 0 [facility] [address] [address] Echocardiogram complete w contrast and 3D if needed (08/08/2019 9:15 PM CDT) Specimen Narrative Performed At [facility] Echo cardiography Report [address] [place] [address] Pat.Name: SOLOMON TIAN Pat.ID: [id number] .Date: 08/08/2019 Refer.MD: LEATHA IRVIN MD Exam Time: 8:08:00 PM Study Type:R outine Echo Height: 70in Weight: 225lb BSA: 2.2 m2 A ge: 1940,79Y Sex: MALE BP: 127/55 HR: 62 bpm Sonogr phr: Candis William, RDCS, RVT Pat. Stat.:Inpatient Room: WT11 1119 Study Status:Final Echo Event ID:[id number] Order ID: [id number] Reason for Study:pre op clearance Procedures:2D Echo, Colorflow Doppler, S train, Portable, Stat Race: C SUMMARY: LV EF is hyperdynamic. RV systolic function is normal. FINDINGS: LV: LV size is normal. LV EF is hyperdynamic. Overall wall motion is hyperdynamic. Estimated EF is >70%. Septal motion is paradoxical secondary to LBBB or c onduction abnormality. RV: RV size is normal. Possible pacer lead RV systolic function is normal. LA: LA volume is mild to modera tely enlarged. RA: RA size is normal. AO: Aortic root diameter is nor mal. PANKAJ: Trace anterior and posterior pericardial effusion. AV: Aortic valve not well seen. Mild aortic regurgitation. MV: No structural MV abnormalit ies noted. Mild mitral regurgitation. PV: Pulmonic valve not well see n. TV: No structural TV abnormalit ies noted. Mild tricuspid regurgitation Lea: Diastolic dysfunction Grade II (Moderate): Impaired relaxation with elevate d LV filling pressures. Other: Estimated PA systolic pressu re is 38 mmHg, assuming a mean RAP of 10 mmHg. MEASUREMENTS: 2D Parasternal Long [place] LVOT 2 cm LA Ds 4 cm LVIDd 4.6 cm Index 2.1 cm/m Ao An 2.2 cm LVIDs 2.2 cm Ao Rtd 3.3 cm Index 1.5 cm/m LV%fs 53.5 % LV Mass 197.6 g (122-17 4) IVSd 1.4 cm LVM In dex 89.8 g/m2 LVPWd 0.9 cm RWT 0.4 LA Sng Plane LA Area 23.9 cm2 (8.8-23.4) LA Vol 83.7 ml Index 38 ml/m LA LngAx 5.6 cm RA Sng Plane RA Area 16.7 cm2 (8.3-19.5) RA Vol 43 ml Index 19.5 ml/m RA LngAx 5.3 cm DOPPLER LVOT Stroke Vol LVOT 2 cm LVOT CO 6 l/min LVOT TVI 27.1 cm LVOT CI 2.7 l/m/m2 LVOT Tm 374 msec HR 70 bpm LVOT SV 85.2 ml Signed 08/09/2019 01:32 PM Jess Ulloa M.D. Procedure Note Interface, Radiology Results In - 2018 1:33 PM CDT Echocardiography Report [address] [place] [address] Pat.Name: SOLOMON TIAN Pat.I D: [id number] .Date: 08/08/2019 Refer .MD: LEATHA IRVIN MD Exam Time: 8:08:00 PM Study Type:Routine Echo Height: 70in Weigh t: 225lb BSA: 2.2 m2 Age: 3 1940,79Y Sex: MALE BP: 127/55 HR: 62 bpm Sonog rphr: Candis William RDCS, RVT Pat. Stat.:Inpatient Room: [place] [address] Study Status:Final Echo Event ID:[id number] Order ID: [id number] Reason for Study:pre op clearance Procedures:2D Echo, Colorflow Doppler, S train, Portable, Stat Race: C SUMMARY: LV EF is hyperdynamic. RV systolic function is normal. FINDINGS: LV: LV size is normal. LV EF is hy perdynamic. Overall wall motion is hyperdynamic. Estim ated EF is >70%. Septal motion is paradoxical secondary to L BBB or conduction abnormality. RV: RV size is normal. Possible pa cer lead RV systolic function is normal. LA: LA volume is mild to moderatel y enlarged. RA: RA size is normal. AO: Aortic root diameter is normal . PANKAJ: Trace anterior and posterior p ericardial effusion. AV: Aortic valve not well seen. Mi ld aortic regurgitation. MV: No structural MV abnormalities noted. Mild mitral regurgitation. PV: Pulmonic valve not well seen. TV: No structural TV abnormalities noted. Mild tricuspid regurgitation Lea: Diastolic dysfunction Grade II (Moderate): Impaired relaxation with elevated LV f illing pressures. Other: Estimated PA systolic pressure is 38 mmHg, assuming a mean RAP of 10 mmHg. MEASUREMENTS: 2D Parasternal Long [place] LVOT 2 cm LA D s 4 cm LVIDd 4.6 cm Inde x 2.1 cm/m Ao An 2.2 cm LVIDs 2.2 cm Ao R td 3.3 cm Index 1.5 cm/m LV%fs 53.5 % LV Mass 197.6 g (122-174) IVSd 1.4 cm LVM Index 89.8 g/m2 LVPWd 0.9 cm RWT 0.4 LA Sng Plane LA Area 23.9 cm2 (8.8-23.4) LA Vol 83.7 ml Index 38 ml/m LA LngAx 5.6 cm RA Sng Plane RA Area 16.7 cm2 (8.3-19.5) RA Vol 43 ml Index 19.5 ml/m RA LngAx 5.3 cm DOPPLER LVOT Stroke Vol LVOT 2 cm LVOT CO 6 l/min LVOT TVI 27.1 cm LVOT CI 2.7 l/m/m2 LVOT Tm 374 msec HR 70 bpm LVOT SV 85.2 ml Signed 08/09/2019 01:32 PM Jess Ulloa M.D. Performing Organization Address [facility] Phone Number [facility] [address] [place] [address] ECG 12 lead (08/08/2019 1:52 PM CDT)Only the most recent of2 resultswithin the time period is included. Pathologist Sig nature Ventricular rate 60 [facility]USE Atrial rate 60 [facility] AR interval 212 [facility] QRSD interval 98 [facility] QT interval 434 [facility] MUSE QTC interval 434 [facility] MUSE QRS axis 1 19 [facility] MUSE T wave axis 21 [facility] MUSE EKG impression Atrial-paced rhythm [facility] MUSE with prolonged AV conduction-Abnormal ECG-In automated comparison with ECG of 08-AUG-2019 11:45,-No significant change was found- Specimen Narrative Performed At This result has an attachment that is no t available. Performing Organization Address [facility] [place] Phone Number [facility] [address] [place] [address] Comprehensive metabolic panel (08/08/2019 12:30 PM CDT)Only the most recent of2 resultswithin the time period is included. Sodium 140 135 - [address] [facility] mEq/L [facility] Potassium 4.0 3.5 - 5.[address] [facility] mEq/L [facility] Chloride 110 98 - [address] [facility] mEq/L HOSPITAL CO2 23 (L) 24 - 31 mEq/L [facility] Anion gap 7@ANIO 7 - 15 mEq/L [facility] BUN 17 8 - 23 mg/dL [facility] Creatinine 1.02 0.70 - 1.[address] [facility] mg/dL [facility] Glucose 120 (H) 65 - 99 mg/dL [facility] Calcium 7.7 (L) 8.8 - 10.[address] [facility] mg/dL HOSPITAL Protein 5.2 (L) 6.3 - 8.[address] [facility] Comment: g/dL HOSPITAL 4.6-7.0 g/dL 1 week 4.4-7.6 g/dL 7 months-1year 5.1-7.3 g/dL 1-2 years 5.6-7.5 g/dL >3 years 6.0-8.0 g/dL 18-150 6.3-8.3 g/dL Albumin 2.9 (L) 3.5 - 5.[address] [facility] g/dL [facility] A/G ratio 1.3 0.7 - 3.8 [facility] Alkaline phosphatase 32 (L) 40 - 129 U/L [facility] AST 15 10 - 50 U/L [facility] ALT 11 5 - 50 U/L [facility] Total bilirubin 1.1 0.0 - 1.[address] [facility] mg/dL [facility] Specimen Plasma specimen Performing Organization Address [facility] [place] Phone Number [facility] DEPARTMENT OF PATHOLOGY AND [address] [place] [address] [address] [address] Transfuse RBC (08/08/2019 7:40 AM CDT)Only the most recent of3 resultswithin the time period is included.Manual differential (08/08/2019 2:00 AM CDT) Manual differential PERFORMED [facility] Neutrophils 73.0 (H) 39.0 - 69.0 % [facility] Lymphocytes 18.0 (L) 25.0 - 45.0 % [facility] Monocytes 8.0 0.0 - 10.0 % [facility] Eosinophils 1.0 0.0 - 5.0 % [facility] Basophils 0.0 0.0 - 1.0 % [facility] Metamyelocytes 0 % [facility] Promyelocytes 0 % [facility] Platelet slide review Don adequate [facility] Anisocytosis Moderate [facility] Polychromasia Moderate [facility] Specimen Performing Organization Address City/[facility] Phone Number [facility] DEPARTMENT OF PATHOLOGY AND [address] [place] [address] [phone] 0 [facility] MEDICINE [address] [address] Direct Lynette' (ZENOBIA) (08/07/2019 9:05 PM CDT) Pathologist Sig nature [id number] Polyspecific NEG [facility] Specimen Performing Organization Address City/[facility]/Zipcode Phone Number [facility] DEPARTMENT OF PATHOLOGY AND [address] [address] 0 [place] [address] Positive ZENOBIA reflex with saline (08/07/2019 9:05 PM CDT) Pathologist Sig nature IgG Lynette, gel NEG [facility] L Specimen Performing Organization Address [facility]/Zipcode Phone Number [facility] DEPARTMENT OF PATHOLOGY AND [address] [place] [address] 0 [facility] [address] [place] [address] Echocardiogram complete w contrast and 3D if needed (08/07/2019 6:00 PM CDT) Specimen Narrative Performed At [facility] Echo cardiography Report [address] [place] [address] Pat.Name: SOLOMON TIAN Pat.ID: [id number] .Date: 08/07/2019 Refer.MD: RON CONTRERAS MD Exam Time: 5:57:00 PM Study Type:R outine Echo Height: 70in Weight: 225lb BSA: 2.2 m2 A ge: 1940,79Y Sex: MALE BP: 144/65 HR: 68 bpm Sonogr phr: CHRISSY Marcus Pat. Stat.:Inpatient Room: [facility] Study Status:Final Echo Event ID:[id number] Order ID: [id number] Reason for Study:Lightheadedness/ Presyn cope/Syncope - Syncope when there are no other symptoms or signs of cardiovascular disease; Syncope - Intermediate or high global CA D risk Procedures:2D Echo, Colorflow Doppler, P ortable, Intravenous Optison Contrast Race: C SUMMARY: LV EF is hyperdynamic. RV systolic function is normal. Aortic valve sclerosis. FINDINGS: LV: LV size is normal. LV EF is hyperdynamic. Overall wall motion is hyperdynamic. Estimated EF is >70%. RV: RV size is normal. RV systo lic function is normal. LA: LA volume is mild to modera tely enlarged. RA: RA size is normal. AO: Aortic root diameter is nor mal. PANKAJ: Small anterior and posterior pericardial effusion. There is an anterior space consistent with a p rominent epicardial fat pad. AV: Aortic valve sclerosis. Mil d to moderate aortic regurgitation. MV: No structural MV abnormalit ies noted. Mild mitral regurgitation. PV: Pulmonic valve not well see n. TV: No structural TV abnormalit ies noted. Lea: Diastolic dysfunction Grade II (Moderate): Impaired relaxation with elevate d LV filling pressures. Other: Insufficient TR jet to estim ate PA systolic pressure. MEASUREMENTS: 2D Parasternal Long [place] LVOT 2 cm LA Ds 3.7 cm LVIDd 5 cm Index 2.3 cm/m Ao An 2.4 cm LVIDs 2.6 cm Ao Rtd 3.4 cm Index 1.6 cm/m LV%fs 48 % LV Mass 194.4 g (122-17 4) IVSd 1 cm LVM I ndex 88.4 g/m2 LVPWd 1.1 cm RWT 0.4 LA Sng Plane LA Area 24.6 cm2 (8.8-23.4) LA Vol 84.9 ml Index 38.6 ml/m LA LngAx 5.9 cm DOPPLER LVOT Stroke Vol LVOT 2 cm LVOT CO 6 l/min LVOT TVI 27.8 cm LVOT CI 2.7 l/m/m2 LVOT Tm 306 msec HR 69 bpm LVOT SV 87.3 ml Signed 08/08/2019 11:14 AM Jess Ulloa M.D. Procedure Note Interface, Radiology Results In - 2018 11:14 AM CDT Echocardiography Report [address] [address] Pat.Name: SOLOMON TIANI D: [id number] St.Date: 08/07/2019 Refer .MD: RON CONTRERAS MD Exam Time: 5:57:00 PM Study Type:Routine Echo Height: 70in Weigh t: 225lb BSA: 2.2 m2 Age: 3 1940,79Y Sex: MALE BP: 144/65 HR: 68 bpm Sonog rphr: Shirley Monge [facility] Pat. Stat.:Inpatient Room: [facility] Study Status:Final Echo Event ID:[id number] Order ID: [id number] Reason for Study:Lightheadedness/ Presyn cope/Syncope - Syncope when there are no other symptoms or signs of cardiovascular disease; Syncope - Intermediate or high global CA D risk Procedures:2D Echo, Colorflow Doppler, P ortable, Intravenous Optison Contrast Race: C SUMMARY: LV EF is hyperdynamic. RV systolic function is normal. Aortic valve sclerosis. FINDINGS: LV: LV size is normal. LV EF is hy perdynamic. Overall wall motion is hyperdynamic. Estim ated EF is >70%. RV: RV size is normal. RV systolic function is normal. LA: LA volume is mild to moderatel y enlarged. RA: RA size is normal. AO: Aortic root diameter is normal . PANKAJ: Small anterior and posterior p ericardial effusion. There is an anterior space consistent with a prominent epicardial fat pad. AV: Aortic valve sclerosis. Mild t o moderate aortic regurgitation. MV: No structural MV abnormalities noted. Mild mitral regurgitation. PV: Pulmonic valve not well seen. TV: No structural TV abnormalities noted. Lea: Diastolic dysfunction Grade II (Moderate): Impaired relaxation with elevated LV f illing pressures. Other: Insufficient TR jet to estimat e PA systolic pressure. MEASUREMENTS: 2D Parasternal Long [place] LVOT 2 cm LA D s 3.7 cm LVIDd 5 cm Inde x 2.3 cm/m Ao An 2.4 cm LVIDs 2.6 cm Ao R td 3.4 cm Index 1.6 cm/m LV%fs 48 % LV Mass 194.4 g (122-174) IVSd 1 cm LVM Index 88.4 g/m2 LVPWd 1.1 cm RWT 0.4 LA Sng Plane LA Area 24.6 cm2 (8.8-23.4) LA Vol 84.9 ml Index 38.6 ml/m LA LngAx 5.9 cm DOPPLER LVOT Stroke Vol LVOT 2 cm LVOT CO 6 l/min LVOT TVI 27.8 cm LVOT CI 2.7 l/m/m2 LVOT Tm 306 msec HR 69 bpm LVOT SV 87.3 ml Signed 08/08/2019 11:14 AM Jess Ulloa M.D. Performing Organization Address City/[facility] [employer] Phone Number [facility] [address] [place] [address] Smear review (08/07/2019 5:00 PM CDT) Pathologist [facility] nature Platelet slide review Don slt decr [facility] Anisocytosis Moderate [facility] Polychromasia Moderate [facility] Tear drop cells Occasional [facility] Schistocytes Occasional [facility] Ovalocytes Moderate [facility] Enlarged platelets Moderate (A) [facility] Specimen Performing Organization Address [facility]/State/Zipcode Phone Number [facility] DEPARTMENT OF PATHOLOGY AND [address] [place] [phone] [place] [address] Partial thromboplastin time, activated (08/07/2019 5:00 PM CDT) [facility] PTT 34.8 23.0 - 36.[address] [facility] Comment: [facility] PTT therapeutic range for unfractionated heparin is 61.0-112.0 seconds which corresponds to Anti-Xa 0.3-0.7 U/ml. Specimen Blood Performing Organization Address City/State/Zipcode Phone Number [facility] DEPARTMENT OF PATHOLOGY AND [address] [place] [phone] [place] [address] Prothrombin time with INR (08/07/2019 5:00 PM CDT) [facility] Prothrombin time 20.4 (H) 11.5 - 14.5 [facility] INR 1.8 [place] Comment: [facility] International Normalized Ratio (INR) is a therapeu [facility] monitoring tool for patients who are stable on oral anticoagulant therapy. An INR of 2.0-3.0 is suggested for deep vein thrombosis/pulmonary embolism. Specimen Blood Performing Organization Address [facility] Phone Number [facility] DEPARTMENT OF PATHOLOGY AND [address] [place] [phone] Prepare RBC, 1 Units (08/07/2019 5:00 PM CDT)Only the most recent of5 results within the time period is included. Pathologist [facility] Product name Red Blood Cells [facility] -[facility], [facility] Unit number [id number] [facility] Product code [id number] [facility] Dispense status Transfused [facility] Blood expiration [id number] [facility] Blood type code 6200 [facility] Blood type A POSITIVE [facility] Specimen Blood Performing Organization Address City/[facility]/Zipcode Phone Number [facility] DEPARTMENT OF PATHOLOGY AND [address] [place] [phone] [place] [phone] Type and screen (08/07/2019 5:00 PM CDT) Pathologist Sig nature ABO grouping A [facility] Rh type POS [facility] Antibody screen (gel) NEG [facility] Specimen Blood Performing Organization Address City/State/Zipcode Phone Number [facility] DEPARTMENT OF PATHOLOGY AND [address] [place] [address] [phone] [address] Hemoglobin A1c (08/07/2019 5:00 PM CDT) Hemoglobin A1C 5.5 4.0 - 5.6 % [facility] Comment: HOSPITAL HbA1c cutoffs for diagnosing diabetes: 4.0% - 5.6% = normal 5.7% - 6.4% = increased risk for diabetes (prediabetes ) >=6.5% = diabetes Goals for glycemic control (ADA 2016) < 7.0% Target for non adults with diabetes. More or less stringent targets may be appropriate for individual patients. <7.5% Target for Children and adolescents with type 1 diabetes. Specimen Blood Performing Organization Address City/[facility]/Zipcode Phone Number [facility] DEPARTMENT OF PATHOLOGY AND [address] [place], [place] [phone] [address] [address] XR Abdomen 1 Vw Portable (08/07/2019 3:44 PM CDT) Specimen Narrative Performed At EXAMINATION: XR ABDOMEN 1 VW PORTABLE [facility] CLINICAL HISTORY: Abd pain unspecifi ed COMPARISON: None. IMPRESSION: There is nonspecific bowel gas pattern Moderate amount retained stool in colon, constipation cannot be excluded Age related changes are present throughout the bony st ructures without evidence of a suspicious focal lesion. [facility] [id number] Procedure Note Hm Interface, Radiology Results Incoming - 08/07/2019 3:58 PM CDT EXAMINATION: XR ABDOMEN 1 VW PORTABLE CLINICAL HISTORY: Abd pain unspecified COMPARISON: None. IMPRESSION: There is nonspecific bowel gas pattern Moderate amount retained stool in colon, constipation cannot be excluded Age related changes are present througho ut the bony structures without evidence of a suspicious focal lesion. [facility]-[id number] Performing Organization Address City/[facility]/Zipcode Phone Number [employer] [address] [place] [id number] Thyroid stimulating hormone (08/07/2019 3:06 PM CDT) Pathologist Sig nature TSH 1.11 0.27 - 4.20 uIU/mL [facility] ITAL Specimen Plasma specimen Performing Organization Address [facility] Phone Number [facility] DEPARTMENT OF PATHOLOGY AND [address] [place] [address] [phone] [address] T4, free (08/07/2019 3:06 PM CDT) Pathologist Sig nature T4, free 1.1 0.9 - 1.7 ng/dL [facility] Plasma specimen Performing Organization Address [facility] Phone Number [facility] DEPARTMENT OF PATHOLOGY AND [address] [place] [address] [phone] [address] Lactic acid level (08/07/2019 3:06 PM CDT) Pathologist Sig nature Lactic acid 1.1 0.5 - 2.2 mmol/L [facility] Spec[facility] Plasma specimen Performing Organization Address [facility] [place] Number [facility] DEPARTMENT OF PATHOLOGY AND [address] [place] [phone] [place] [phone] after 05/26/2019 Insurance Payer Benefit Plan / Subscriber ID Effective Dates Phone Addre ss Type Group [employer] MEDICARE [employer] MEDICARE xxxxxxxxx 2017-Present PPO PPO/PFFS/ERS [facility] Advance Directives For more information, please contact: [phone] Type Date Recorded Patient Business Sales Consultant Explanati on Advance Directives, Living Will and Medical Power of Product Lead
--- OUTSIDE RECORDS SUMMARY | 2020-05-26 18:16 | XMS REPORT | Continuity of Care Document ---
:1940 Author Organization [facility] t Address [address] [place] [address] Care Team Providers Name Role Phone Graham Robert Primary Care Physician Addis WILSON Attending Clinician Bronwyn WILSON, FSlime Attending Clinician Yo WILSON V. Attending Clinician Jia WILSON Attending Clinician Evans Norris MD Attending Clinician Oliver WILSON Attending Clinician Oseas Attending Clinician Unavailable Hermelindo ELLIOTT Attending Clinician Unavailable ALEKSANDER Attending Clinician Unavailable Aleksanedr Attending Clinician VLAD Attending Clinician Unavailable MIGUEL ELLER Attending Clinician Unavailable Aleksander Admitting Clinician PHILIP Admitting Clinician Unavailable Payers Payer Name Policy Type Policy Number Effective Date Expiration Source Date HUMANA xxxxxxxxx 2017 [place] MEDICAREHUMANA 00:00:00 [place] MEDICARE PPO/PFFS/ERS [id number] Problems Condition Condition Condition Status Onset Resolution Last Treating Co mments Source Name Details Category Date Date Treatment Clinician Date Anticoagul Anticoagul Disease Active H shannan ant ant 14 [facility] long-term long-term 00:00: st use use 00 Pacemaker Pacemaker Disease Active Fani ston 08-08 Methodi 00:00: st 00 Acute Acute Disease Active [place] post-hemor post-hemor 14 Me thodi rhagic rhagic 00:00: st anemia anemia 00 Paroxysmal Paroxysmal Disease Active H daphneamber atrial atrial 08-08 [facility] fibrillati fibrillati 00:00: st on on Melena Melena Disease Active Overview: [place] n 9-13 Added Methodi 00:00: automatic st 00 ally from request for surgery [id number] Coronary Coronary Problem Active [place] atheroscle Atheroscle 5-17 da rosis rosis 00:00: Medical 00 Group Unstable Unstable Disease [facility] Type 2 Type 2 Problem Active [place] diabetes Diabetes 3-29 da mellitus Mellitus 00:00: Medica l without without 00 Group complicati Complicati on on Benign Benign Problem Active [place] essential Essential 3-29 da hypertensi Hypertensi 00:00: Me dical on on Group Coronary Coronary Problem Active [place] arterioscl Arterioscl 3-29 da erosis erosis 00:00: Medical 00 Group Atrial Atrial Problem Active [place] fibrillati Fibrillati 3-29 da on on 00:00: Medical 00 Group Gastroesop Gastroesop Problem Active M [place] hageal hageal 3-29 da reflux Reflux 00:00: Medical disease Disease 00 Group without without esophagiti Esophagiti s s 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-29 da lumbar Lumbar 00:00: Medical interverte Interverte 00 Gr oup bral disc bral Disc Mild Mild Problem Active [place] dementia Dementia 3-29 da 00:00: Medical 00 Group Atrial Problem Active 2018-09-26 Memor ia fibrillati - 04:00:38 l on Atrial 00:00: Marcial (disorder) fibrillati 00 on (disorder) Active 11/25/2011 Problem 09/26/2018 in Constant A-FIB [facility] Mitral Problem Active 2018-09-26 Memor ia valve - 04:00:38 l regurgitat Mitral 00:00: Herm brien ion valve 00 (disorder) regurgitat ion (disorder) Active 11/25/2007 Problem 09/26/2018 No stents, no surgery [facility] History of History of Problem Resolve Univers cerebrovas cerebrovas HL7.CCDAR2 d ity of cular cular [place] accident accident Physic i ans History of History of Problem Resolve Univers kidney kidney HL7.CCDAR2 d ity of stones stones [place] Physici ans History of History of Problem Resolve Univers myocardial myocardial HL7.CCDAR2 d ity of infarction [place] [facility] ans History of History of Problem Resolve Univers sleep sleep HL7.CCDAR2 d ity of apnea apnea [place] [facility]ici ans Acquired Acquired Problem Active Unive rs trigger trigger HL7.CCDAR2 ity of finger [place] left ring left ring Phys ici finger finger ans Acquired Acquired Problem Active Unive rs trigger trigger HL7.CCDAR2 [place]y of finger [place] right ring right ring Ph ysici finger finger ans Acquired Acquired Problem Active Unive rs trigger trigger HL7.CCDAR2 ity of finger [place] right right Physici middle middle ans finger finger Acquired Acquired Problem Active Unive rs trigger trigger HL7.CCDAR2 ity of finger [place] right right Physici index index ans finger finger Carpal Carpal Problem Active 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 [place] of right of right Physic i wrist wrist ans Heart Heart Problem Active Univers disease disease HL7.CCDAR2 ity of [place] Physici ans Sleep Sleep Problem Active Univers disorder disorder HL7.CCDAR2 it y of [place] Physici ans Dementia Dementia Problem Active Unive rs HL7.CCDAR2 ity of [place] Physici ans Type 2 Type 2 Problem Active Univers diabetes diabetes HL7.CCDAR2 it y of mellitus mellitus [place] Physici ans Hyperchole Hyperchole Problem Active U nivers sterolemia sterolemia HL7.CCDAR2 ity of [place] Physici ans HTN HTN Problem Active Univers (hypertens (hypertens HL7.CCDAR2 ity of ion) ion) [place] Physici ans GERD GERD Problem Active Univers (gastroeso (gastroeso HL7.CCDAR2 ity of phageal phageal [place] reflux reflux Physici disease) disease) ans Right Right Problem Active Univers wrist pain wrist pain HL7.CCDAR2 ity of [place] Physici ans Trigger Trigger Problem Active Univers finger of finger of HL7.CCDAR2 ity of both hands both hands [place] [facility] Chest pain Problem Active 2018-09-26 M emoria (finding) 04:00:38 l Chest [place] pain (finding) Active Problem 09/26/2018 last had to use nitro for cp in 02/2018, was hospitaliz ed , NO DC, no stents [facility] Diabetes Problem Active 2018-09-26 Mem oria mellitus 04:00:38 l (disorder) Diabetes He rmann mellitus (disorder) Active Problem 09/26/2018 non-insul in BS range- -115-125 [facility] Maintenanc Problem Active 2018-09-26 M emoria e 04:00:38 l procedure Marcial for Maintenanc cardiac e pacemaker procedure system for (procedure cardiac ) pacemaker system (procedure ) Active Problem 09/26/2018 [facility] Sleep Problem Active 2018-09-26 Memor ia apnea 04:00:38 l (finding) Sleep Memo n apnea (finding) Active Problem 09/26/2018 uses cpap machine [facility] Stroke-lik Stroke-lik Disease Active [facility] e symptoms e symptoms [facility] - Medical [place] Transient Transient Disease Active [facility] alteration alteration [facility] - of of Medical awareness awareness Cent er Carpal Problem 2017-2018-09-26 2018-09-26 M emoria tunnel 0-31 04:00:38 04:00:38 l syndrome, Carpal 05:00: Sonja nn right tunnel 00 upper limb syndrome, right upper limb 09/24/2018 09/26/2018 [facility] Allergies, Adverse Reactions, Alerts This patient has no known allergies or adverse reactions. Social History Social Habit Start Date Stop Date Quantity Comments Source Sex Assigned At [facility] ethodist Cigarettes smoked 2019-08-13 2019-08-13 Angel Baezaist current (pack per 00:00:00 00:00:00 day) - Reported Alcohol intake 2019-08-13 2019-08-13 Current drinker [place] [facility] 00:00:00 00:00:00 of alcohol (finding) Alcohol Comment 2018-03-23 2018-03-23 8 cans of beers/ [facility] Smoking Status Start Date Stop Date Source Current every day smoker 2019-08-13 00:00:00 Fani clark [facility] Medications Ordered Filled Start Stop Current Ordering Indication Dosage Frequency Signature Comments Components Source Medication Medication Date Date Medication? Clinician (SIG) Name Name multivitami Yes 1{tbl} QD Take 1 [place] 9-22 tablet by Methodi (THERAGRAN) 00:00: mouth st tablet 00 daily. thiamine Yes 100mg QD Take 1 [place] mononitrate -22 tablet Method i , vit B1, 00:00: ([address] (B-1) 100 00 total) by mg tablet mouth daily. folic acid 2019- No 1mg QD Take 1 [place] (FOLVITE) 1 08-16 tablet (1 Me thodi MG tablet 00:00: 23:59 mg total) st 00 :00 by mouth daily. lisinopril 2019- No 20mg QD Take 1 [place] (PRINIVIL,Z 08-16 tablet (20 M ethodi ESTRIL) 20 00:00: 23:59 mg total) s t mg tablet 00 :00 by mouth daily. lisinopril 2018- No 10mg QD Take 10 mg [place] (PRINIVIL,Z 08-15 by mouth Met hodi ESTRIL) 10 13:06: 00:[address] mg tablet 38 :00 acetaminoph 2018- No 650mg Q6H Take 650 [place] en 08-15 mg by Methodi (TYLENOL) 13:06: 00:[address] 325 MG 38 :00 every 6 tablet (six) hours as needed for mild pain or fever. rivaroxaban 2019- No 20mg QD Take 20 mg [place] (XARELTO) 9-21 09-21 by mouth Metho di 20 mg 13:06: 00:[address] tablet 38 :00 aspirin 2018- Yes 81mg QD Take 81 mg [place] (ECOTRIN) 08-15 by mouth Method i 81 MG 13:06: daily. st enteric 34 coated tablet carvedilol 2018-0 Yes 25mg Q.5D Take 25 mg [place] (COREG) 25 -21 by mouth 2 Met hodi MG tablet 13:06: (two) st 34 times a day with meals. rosuvastati 2018-0 Yes 20mg QD Take 20 mg [place] n (CRESTOR) 08-15 by mouth Meth jovan 20 MG 13:06: daily. st tablet 34 flecainide 2018-0 Yes 50mg Q.5D Take 50 mg [place] (TAMBOCOR) 08-15 by mouth 2 Met hodi 50 MG 13:06: (two) st tablet 34 times a day. hydroCHLORO 0 Yes 25mg QD Take 25 mg [place] thiazide - by mouth Methodi (HYDRODIURI 13:06: daily. st L) 25 MG 34 tablet metFORMIN 2018- Yes 500mg Q.5D Take 500 Fani ston (GLUCOPHAGE 9-21 mg by Methodi ) 500 mg 13:06: mouth 2 st tablet 34 (two) times a day with meals. nitroglycer 2018-[address] 0.4 [place] 9-21 mg under Methodi (NITROSTAT) 13:06: the tongue st 0.4 MG SL 34 every 5 tablet (five) minutes as needed for chest pain. vit A,C and 2019-0 Yes QD Take by Fani ston E-lutein-mi 08-15 mouth Methodi nerals 13:06: daily. st (OCUVITE 34 WITH LUTEIN) 1,000 unit-200 mg-60 unit-2 mg tablet per tablet omeprazole 2018-0 Yes 40mg QD Take 40 mg [place] (PriLOSEC) 08-15 by mouth Metho di 40 MG 13:06: daily. st capsule 34 ranitidine 2019-0 Yes 300mg QD Take 300 [place] (ZANTAC) 9-21 mg by Methodi 150 MG 13:06: mouth st tablet 34 nightly. rivastigmin 2019-0 Yes 1{patch QD Place 1 [place] e (EXELON) 08-15 } patch on Metho di 4.6 mg/24 13:06: the skin st hr 34 daily. magnesium 2019- No 400mg Q.5D Take 1 [place] oxide 08-15 tablet Methodi (MAG-OX) 00:00: 23:59 ([address] 400 mg 00 :00 total) by (241.3 mg mouth 2 magnesium) (two) tablet times a day. ALPRAZolam 2018- No .5mg Q.5D Take 1 [place] (XANAX) 0.5 08-15 tablet Metho di MG tablet 00:00: 23:59 (0.[address] 00 :00 total) by mouth 2 (two) times a day as needed for anxiety for up to 30 days. Labetalol 2017-11 No 5 mg = 1 Arthur manpreet 0-31 mL, l 14:34: Injection, Marcial 00 IV Push, As Indicated PRN for hypertensi on, first dose 09/24/18 9:34:00 CDT Hydralazine 2017-11 No 10 mg = Mem oria 0-31 0.5 mL, l 14:34: Injection, Marcial 00 IV Push, As Indicated PRN for hypertensi on, first dose 09/24/18 9:34:00 CDT Diphenhydra 2017-11 No 25 mg = Mem oria mine 0-31 0.5 mL, l 14:34: Injection, Marcial 00 IV Push, Once PRN for itching, first dose 09/24/18 9:34:00 CDT Levalbutero 2017-11 No 0.63 mg = M emoria l 0.21 0-31 3 mL, l MG/ML 14:34: Soln, NEB, Memo n Inhalant 00 Once PRN Solution for [Xopenex] wheezing, first dose 09/24/18 9:34:00 CDT Ondansetron 2017-11 No 4 mg = 2 Me moria 0-31 mL, l 14:34: Injection, [place] 00 IV Push, q15min PRN for nausea, order duration: 2 doses, first dose 09/24/18 9:34:00 CDT, stop date Limited # of times Promethazin 2017-11 No 12.5 mg = M emoria e 0-31 0.5 mL, l 14:34: Injection, IM, Once PRN for vomiting, first dose 09/24/18 9:34:00 CDT Morphine 2017-11 No 2 mg = 0.2 Mem oria 0-31 mL, l 14:34: Injection, Marcial 00 IV Push, q5min PRN for pain, first dose 09/24/18 9:34:00 CDT Dilaudid 2017-11 No 0.5 mg = Memor ia 0-31 0.5 mL, l 14:34: Injection, Marcial 00 IV Push, q10min PRN for pain severe (7-10), first dose 09/24/18 9:34:00 CDT Demerol HCl 2017-11 No 12.5 mg = M emoria 0-31 0.5 mL, l 14:34: Injection, Marcial 00 IV Push, Once PRN for shivers, first dose 09/24/18 9:34:00 CDT LR 1,000 mL 2017-11 No 1,000 mL, M emoria 0-31 IV, 75 l 14:34: mL/hr, start date 09/24/18 9:34:00 CDT Saline Lock 2017-11 No 10 mL, Arthur manpreet Flush 0-31 Soln, IV l 14:34: Push, As Indicated PRN for flush, first dose 09/24/18 9:34:00 CDT Nitroglycer 2017-11 No 0.4 mg = 1 Memoria in 0-31 tabs, Tab, l 14:31: SL, q5min PRN for chest pain, order duration: 3 doses, first dose 09/24/18 9:31:00 CDT, stop date Limited # of times Misc 2017-11 No 800 mL, Memoria Medication 0-31 Soln-IV, l 14:22: IV, Once, first dose 09/24/18 9:22:00 CDT, stop date 09/24/18 9:22:00 CDT ePHEDrine 2017-11 No 5 mg = 0.1 Me moria 0-31 mL, l 14:03: Injection, IV, Once, first dose 09/24/18 9:03:00 CDT, stop date 09/24/18 9:03:00 CDT fentaNYL 2017- No 25 mcg = Memor ia 0-31 0.5 mL, l 14:00: Injection, [place] 00 IV, Once, first dose 09/24/18 9:00:00 CDT, stop date 09/24/18 9:00:00 CDT ePHEDrine 2017- No 5 mg = 0.1 Me moria 0-31 mL, l 13:55: Injection, [place] 00 IV, Once, first dose 09/24/18 8:55:00 CDT, stop date 09/24/18 8:55:00 CDT ePHEDrine 2017-11 No 5 mg = 0.1 Me moria 0-31 mL, l 13:52: Injection, [place] 00 IV, Once, first dose 09/24/18 8:52:00 CDT, stop date 09/24/18 8:52:00 CDT ePHEDrine 2017- No 5 mg = 0.1 Me moria 0-31 mL, l 13:46: Injection, [place] 00 IV, Once, first dose 09/24/18 8:46:00 CDT, stop date 09/24/18 8:46:00 CDT fentaNYL 2017- No 25 mcg = Memor ia 0-31 0.5 mL, l 13:46: Injection, Marcial 00 IV, Once, first dose 09/24/18 8:46:00 CDT, stop date 09/24/18 8:46:00 CDT ondansetron 2017- No 4 mg = 2 Me moria 0-31 mL, l 13:45: Injection, [place] 00 IV, Once, first dose 09/24/18 8:45:00 CDT, stop date 09/24/18 8:45:00 CDT fentaNYL 2017- No 25 mcg = Memor ia 0-31 0.5 mL, l 13:43: Injection, [place] 00 IV, Once, first dose 09/24/18 8:43:00 CDT, stop date 09/24/18 8:43:00 CDT midazolam 2017- No 0.5 mg = Arthur manpreet 0-31 0.5 mL, l 13:43: Injection, Marcial 00 IV, Once, first dose 09/24/18 8:43:00 CDT, stop date 09/24/18 8:43:00 CDT ePHEDrine 2018- No 5 mg = 0.1 Me moria 0-31 mL, l 13:41: Injection, [place] 00 IV, Once, first dose 09/24/18 8:41:00 CDT, stop date 09/24/18 8:41:00 CDT ePHEDrine 2017- No 5 mg = 0.1 Me moria 0-31 mL, l 13:37: Injection, [place] 00 IV, Once, first dose 09/24/18 8:37:00 CDT, stop date 09/24/18 8:37:00 CDT fentaNYL 2017- No 25 mcg = Memor ia 0-31 0.5 mL, l 13:35: Injection, [place] 00 IV, Once, first dose 09/24/18 8:35:00 CDT, stop date 09/24/18 8:35:00 CDT midazolam 2017- No 0.5 mg = Arthur manpreet 0-31 0.5 mL, l 13:35: Injection, [place] 00 IV, Once, first dose 09/24/18 8:35:00 CDT, stop date 09/24/18 8:35:00 CDT fentaNYL 2017- No 25 mcg = Memor ia 0-31 0.5 mL, l 13:29: Injection, Marcial 00 IV, Once, first dose 09/24/18 8:29:00 CDT, stop date 09/24/18 8:29:00 CDT midazolam 2017- No 0.5 mg = Arthur manpreet 0-31 0.5 mL, l 13:29: Injection, [place] 00 IV, Once, first dose 09/24/18 8:29:00 CDT, stop date 09/24/18 8:29:00 CDT ceFAZolin 2017- No 2 gm, Memoria 0-31 Soln-IV, l 13:24: IV Marcial 00 Piggyback, Once, first dose 09/24/18 8:24:00 CDT, stop date 09/24/18 8:24:00 CDT propofol 2017- No 120 mg = Memor ia 0-31 12 mL, l 13:20: Emulsion, Marcial 00 IV, Once, first dose 09/24/18 8:20:00 CDT, stop date 09/24/18 8:20:00 CDT lidocaine 2017-11 No 3 mL, Memoria 0-31 Injection, l 13:20: IV, Once, first dose 09/24/18 8:20:00 CDT, stop date 09/24/18 8:20:00 CDT fentaNYL 2017-11 No 25 mcg = Memor ia 0-31 0.5 mL, l 13:19: Injection, IV, Once, first dose 09/24/18 8:19:00 CDT, stop date 09/24/18 8:19:00 CDT midazolam 2017-11 No 0.5 mg = Arthur manpreet 0-31 0.5 mL, l 13:19: Injection, IV, Once, first dose 09/24/18 8:19:00 CDT, stop date 09/24/18 8:19:00 CDT midazolam 2017-11 No 2 mg = 2 Arthur manpreet 0-31 mL, l 13:09: Injection, IV, Once, first dose 09/24/18 8:09:00 CDT, stop date 09/24/18 8:09:00 CDT Cefazolin 2017-11 No 2 gm, Memoria 0-31 Soln-IV, l 12:00: IV Piggyback, Once, infuse over 30 minutes, first dose 09/24/18 7:00:00 CDT, stop date 09/24/18 7:00:00 CDT, patient weight 50-120 kg, Prophylaxi s Lidocaine 2017-11 No 0.2 mL, Memor ia 2% 0.2 mL 0-31 Injection, l IV Start 12:00: [facility] [[facility]] 00 , Once PRN for other (see comment), first dose 09/24/18 7:00:00 CDT LR 1,000 mL 2017-11 No 1,000 mL, M emoria 0-31 IV, 30 l 12:00: mL/hr, Marcial 00 start date 09/24/18 7:00:00 CDT Trazodone 2017-11 Yes Oral, qHS, Me moria 0-26 0 l 15:52: Refill(s), sleep 24 HR 2017-11 Yes 1 patches, Memori a rivastigmin 0-26 TD, Daily, l e 0.192 15:51: # 30 [place] MG/HR 00 patches, 0 Transdermal Refill(s), Patch Dementia Osteo 2017-11 Yes 0 Memoria Bi-Flex 0-26 Refill(s), l 15:47: supplement Marcial 00 aspirin 81 2017-11 Yes = 1 caps, Me moria mg oral 0-26 Oral, l delayed 15:47: Daily, # Memo n release 00 120 caps, capsule 0 Refill(s), HEART carvedilol 2017-11 Yes 25 mg, Memor ia 0-26 Oral, BID, l 15:46: 0 [place] 00 Refill(s), HTN Rosuvastati 2017-11 Yes mg tabs, Me moria n calcium 0-26 Oral, qHS, l 20 MG Oral 15:46: 0 [place] Tablet 00 Refill(s), [Crestor] cholestero l hydroCHLORO 2017-11 Yes mg tabs, Me moria thiazide 25 0-26 Oral, l mg oral 15:45: Daily, 0 Memo n tablet 00 Refill(s), HTN Lisinopril 2017-11 Yes 10 mg, Memor ia 0-26 Oral, l 15:45: Daily, 0 Marcial 00 Refill(s), HTN Metformin 2017-11 Yes 500 mg = 1 Me moria hydrochlori 0-26 tabs, l de 500 MG 15:44: Oral, BID, He rmann Oral Tablet 00 0 Refill(s), BID Nitroglycer 2017-11 Yes 0 Memori a in 0-26 Refill(s), l 15:44: CP Marcial 00 Omeprazole 2017-11 Yes Oral, Memori a 0-26 Daily, 0 l 15:43: Refill(s), Marcial 00 acid reflux Ranitidine 2017-11 Yes 0 Memoria 0-26 Refill(s), l 15:43: acid Marcial 00 reflux Xarelto 2017-11 Yes 20 mg, Memoria 0-26 Oral, qPM, l 15:42: 0 [place] 00 Refill(s), A-FIB nitroglycer Yes 1{patch QD Place [address] [facility] [address] in - } patch onto [facility] - (NITRODUR) 00:44: the skin Med ical 0.2 mg/hr 02 daily. [place] patch C,E,ZINC,CO 0 Yes Take by [facility] PPER 4-29 mouth. [facility] - 11/[id number]/ 00:44: Medica l LUT 02 [place] (OCUVITE ADULT 50+ ORAL) omeprazole 2017-0 Yes 40mg QD Take [address] (PRILOSEC) 4-29 by mouth [facility] - 40 MG 00:44: daily. Medical capsule 02 [place] ranitidine 0 Yes 300mg QD Take [address] (ZANTAC) 4-29 mg by [facility] - 300 MG 00:44: mouth Medical capsule 02 every Center evening. rivastigmin 0 Yes 1{patch QD Place [address] e (EXELON) 4-29 } patch onto Keri es - 4.6 mg/24 00:44: the skin Medi kelli hr patch 02 daily. [place] traZODone Yes 50mg QD Take [address] (DESYREL) 4-29 by mouth [facility] - 50 MG 00:44: nightly. Medical tablet 02 [place] acetaminoph Yes 650mg Take [address] en 4-29 mg by [facility] - (TYLENOL) 00:44: mouth Medical 325 MG 02 every 6 Center tablet (six) hours as needed for Pain. rivaroxaban 0 Yes Take by [facility] (XARELTO) 4-29 mouth [facility] - 20 mg Tab 00:44: daily with Me dical tablet 02 dinner. [place] carvedilol 0 Yes 25mg Take [address] (COREG) 25 4-29 by mouth 2 [place] - MG tablet 00:44: (two) Medical 01 times Center daily with breakfast and dinner. rosuvastati 0 Yes 20mg QD Take [address] n (CRESTOR) 4-29 by mouth [facility] - 20 MG 00:44: daily. Medical tablet 01 [place] DULoxetine 0 Yes 60mg QD Take [address] (CYMBALTA) 4-29 by mouth [facility] - 60 MG 00:44: daily. Medical capsule 01 [place] divalproex 2018-0 Yes 500mg Q.5D Take [address] (DEPAKOTE) 4-29 mg by [facility] - 500 MG EC 00:44: mouth 2 Medic al tablet 01 (two) Center times daily. GLUCOSAM-CH 2017-0 Yes arthritis Q.5D Take by [facility] OND-MSM 4-29 mouth 2 [facility] - 2-C-D3-YOLIE 00:44: (two) Medic al ORAL 01 times Center daily. hydroCHLORO 2018-0 Yes 25mg QD Take [address] thiazide 4-29 by mouth [facility] - (HYDRODIURI 00:44: daily. Medi kelli L) 25 MG 01 Center tablet lisinopril 0 Yes 10mg QD Take [address] (PRINIVIL,Z 4-29 by mouth [facility] - ESTRIL) 10 00:44: daily. Medic al MG tablet 01 Center metFORMIN Yes 500mg Take [address] (GLUCOPHAGE 4-29 mg by [facility] - ) 500 MG 00:44: mouth 2 Medica l tablet 01 (two) Center times daily with breakfast and dinner. nitroglycer Yes .4mg Place 0.[address] in 4-29 mg under [facility] - (NITROSTAT) 00:44: the tongue Medical 0.4 MG SL 01 every 5 Center tablet (five) minutes as needed for Chest pain Put 1 pill under tongue every 5min as needed for chest pain.No more than 3 doses in 15min.Call 911 if pain is unrelieved 5min after 1st dose . aspirin-sod Yes 750mg Take [address] bicarb-citr 4-29 mg by [facility] - ic acid 00:44: mouth Medical (SHARONDA-SELTZ 00 every 6 Cente r ER) 324 mg (six) TbEF hours as needed. aspirin 81 0 Yes 81mg QD Take [address] MG EC 4-29 by mouth [facility] - tablet 00:44: daily. Medical 00 Center alprazolam alprazolam No 1 Q1D alprazolam [place] 0.25 mg 0.25 mg 0.25 mg da tablet Take tablet Take tablet Medical 1 tablet 1 tablet Take 1 Group every day every day tablet by oral by oral every day route. take route. take by oral as needed as needed route. for stress for stress take as needed for stress Aspir-81 Aspir-81 No Aspir- [place] [facility] Osteo Osteo Yes Univers Bi-Flex Adv Bi-Flex Adv i ty of [facility] [place] Oral Tablet Oral Tablet P hysici ans carvedilol carvedilol No carvedilol [place] 25 mg 25 mg 25 mg da tablet TAKE tablet TAKE tablet Medical 1 TABLET 1 TABLET TAKE 1 Group TWICE A DAY TWICE A DAY TABLET TWICE A DAY Xarelto Xarelto Yes Univers TABS TABS ity of [place] Physici ans Crestor 20 Crestor 20 No 1 Q1D Crestor 20 [place] mg tablet mg tablet mg tablet da Take 1 Take 1 Take 1 Medical tablet tablet tablet Group every day every day every day by oral by oral by oral route. route. route. Tylenol Tylenol Yes Univers CAPS CAPS ity of [place] Physic ans flecainide flecainide No 1 Q12H flecainide [place] 50 mg 50 mg 50 mg da tablet Take tablet Take tablet Medical 1 tablet 1 tablet Take 1 Group every 12 every 12 tablet hours by hours by every 12 oral route. oral route. hours by oral route. TraZODone TraZODone Yes Unive rs HCl TABS [facility] hydrochloro No hydrochlor [place] thiazide 25 thiazide 25 othiazide da mg tablet mg tablet 25 mg Medi kelli TAKE 1 TAKE 1 tablet Group TABLET TABLET TAKE 1 DAILY DAILY TABLET DAILY Rivastigmin Rivastigmin Yes U nivers e 4.6 e 4.6 ity of MG/24HR MG/24HR [place] Transdermal Transdermal P hysici Patch 24 Patch 24 ans Hour Hour lisinopril lisinopril No 1 BID lisinopril [place] 10 mg 10 mg 10 mg da tablet Take tablet Take tablet Medical 1 tablet 1 tablet Take 1 Group twice a day twice a day tablet by oral by oral twice a route. route. day by oral route. RaNITidine RaNITidine Yes Uni vers HCl TABS HCl TABS ity of [place] Physici ans metformin metformin No metformin [place] 500 mg 500 mg 500 mg da tablet TAKE tablet TAKE tablet Medical 1 TABLET 1 TABLET TAKE 1 Group TWICE A DAY TWICE A DAY TABLET TWICE A DAY Omeprazole Omeprazole Yes Uni vers TBEC TBEC ity of [place] Physici ans Ocuvite Ocuvite Yes Univers Extra Oral Extra Oral ity of Tablet Tablet [place] Physici ans Nitro-Dur Nitro-Dur No 1patch( Q1D Nitro-Dur [place] 0.2 mg/hr 0.2 mg/hr es) 0.2 mg/hr da transdermal transdermal transderma Medical 24 hour 24 hour l 24 hour Grou p patch Apply patch Apply patch 1 patch 1 patch Apply 1 every day every day patch by by every day transdermal transdermal by route. route. transderma l route. Nitroglycer Nitroglycer Yes U nivers in in ity of Transdermal Transdermal [place] PT24 PT24 Physici ans Nitrostat Nitrostat No 1 Nitrostat [place] 0.4 mg 0.4 mg 0.4 mg da sublingual sublingual sublingual Medical tablet tablet tablet Group Place [address] 1 tablet as tablet as tablet as needed by needed by needed by sublingual sublingual sublingual route. route. route. Nitrostat Nitrostat Yes Unive rs SUBL SUBL ity of [place] Physici ans omeprazole omeprazole No 1capsul BID omeprazole [place] 40 mg 40 mg e(s) 40 mg da capsule,del capsule,del capsule,de Medical ayed ayed layed Group release release release Take 1 Take 1 Take 1 capsule capsule capsule twice a day twice a day twice a by oral by oral day by route. route. oral route. MetFORMIN MetFORMIN Yes Unive rs HCl TABS HCl TABS ity of [place] Physici ans ranitidine ranitidine No 1 Q1D ranitidine [place] 300 mg 300 mg 300 mg da tablet Take tablet Take tablet Medical 1 tablet 1 tablet Take 1 Group every day every day tablet by oral by oral every day route. route. by oral route. Lisinopril Lisinopril Yes Uni vers TABS TABS ity of [place] Physici ans HydroCHLORO HydroCHLORO Yes U nivers thiazide thiazide ity of TABS TABS [place] Physici ans rivastigmin rivastigmin No rivastigmi [place] e 4.6 mg/24 e 4.6 mg/24 ne 4.6 da hour hour mg/24 hour Medical transdermal transdermal transderma Group patch APPLY patch APPLY l patch 1 PATCH 1 PATCH APPLY 1 TRANSDERMAL TRANSDERMAL PATCH LY DAILY LY DAILY TRANSDERMA LLY DAILY Crestor Crestor Yes Univers TABS TABS [facility] [place] [facility] ans trazodone trazodone No 1 Q1D trazodone [place] 50 mg 50 mg 50 mg da tablet Take tablet Take tablet Medical 1 tablet 1 tablet Take 1 Group every day every day tablet by oral by oral every day route. route. by oral route. Carvedilol Carvedilol Yes Uni vers TABS TABS [facility] [place] [facility] ans Tylenol 325 Tylenol 325 No 2 Tylenol [place] mg tablet mg tablet 325 mg da Take 2 Take 2 tablet Medical tablets as tablets as Take 2 G roup needed by needed by tablets as oral route. oral route. needed by oral route. Aspir-81 81 Aspir-81 81 Yes U nivers MG Oral MG Oral ity of Tablet Tablet [place] Delayed Delayed Physici Release Release ans Xarelto 20 Xarelto 20 No Xarelto 20 [place] mg tablet mg tablet mg tablet da TAKE 1 TAKE 1 TAKE 1 Medical TABLET TABLET TABLET Group DAILY DAILY DAILY Sharonda-Seltze Sharonda-Seltze Yes U nivers r Antacid r Antacid ity o f CAPS CAPS [place] [facility] ans Vital Signs Vital Name Observation Time Observation Value Comments Source BP Diastolic 2019-08-04 00:00:00 62 mm[Hg] [facility] Height 2019-08-04 00:00:00 70 [in_i] [facility] BMI (Body Mass 2019-08-04 00:00:00 34 kg/m2 [facility] Medical Index) Group BP Systolic 2019-08-04 00:00:00 138 mm[Hg] [facility] Body Weight 2019-08-04 00:00:00 3792 [oz_av] [facility] Systolic blood 2019-08-15 12:15:00 150 mm[Hg] [facility] pressure Diastolic blood 2019-08-15 12:15:00 67 mm[Hg] [facility] pressure Heart rate 2019-08-15 11:50:24 60 /min Angel Peres Body temperature 2019-08-15 11:50:24 36.89 Yuridia [facility] Respiratory rate 2019-08-15 11:50:24 18 /min Guy Peres Oxygen saturation in 2019-08-15 11:50:24 96 /min Angel Peres Arterial blood by Pulse oximetry Body height 2019-08-11 14:42:00 177.8 cm Angel Peres Body weight 2019-08-07 17:56:00 102.059 kg Angel Peres BMI 2019-08-07 17:56:00 32.28 kg/m2 Angel Peres Systolic (mm Hg) 2018-09-24 17:52:00 Arthur rial Marcial Diastolic (mm Hg) 2018-09-24 17:52:00 Mem [facility] [place] Respitory Rate 2018-09-24 17:52:00 [facility] [place] Respitory Rate 2018-09-24 15:20:00 Memori al Marcial Heart Rate 2018-09-24 15:20:00 [facility] [place] Systolic (mm Hg) 2018-09-24 15:20:00 Arthur [facility] [place] Diastolic (mm Hg) 2018-09-24 15:20:00 Mem orial [facility] Systolic (mm Hg) 2018-09-24 15:10:00 Arthur rial Marcial Diastolic (mm Hg) 2018-09-24 15:10:00 [facility] [place] Respitory Rate 2018-09-24 15:10:00 Memori al Marcial Heart Rate 2018-09-24 15:10:00 [facility] Heart Rate 2018-09-24 15:00:00 [facility] [place] Temperature Oral (F) 2018-09-24 14:10:00 37.3 Yuridia [facility] [place] Height 2018-09-24 12:01:00 177.88 cm [facility] Temperature Oral (F) 2018-09-24 12:01:00 37.1 Y[facility]idia [facility] [place] Height 2018-09-19 15:39:00 177.88 cm [facility] Procedures Procedure Date / Time Performing Source Performed Clinician POC GLUCOSE 2019-08-[address] 11:49:00 POC GLUCOSE 2019-08-[address] 08:26:00 POC GLUCOSE 2019-08-[address] 20:41:00 POC GLUCOSE 2019-08-[address] 07:10:00 HC COMPLETE BLD COUNT W/AUTO DIFF 2019-08-14 Madina Kendrick 00:17:00 Destiny POC GLUCOSE 2019-08-[address] 21:18:00 POC GLUCOSE 2019-08-[address] 12:18:00 POC GLUCOSE 2019-08-13 Bronwyn, Leatha F. [facility] 08:11:00 HC COMPLETE BLD COUNT W/AUTO DIFF 2019-08-13 Jose F Woodist 05:25:00 BASIC METABOLIC PANEL 2019-08-13 Jose F [facility] 04:00:00 MAGNESIUM LEVEL 2019-08-13 Jose F Wood t 04:00:00 ESTIMATED GFR 2019-08-13 Jose F Wood t 04:00:00 POC GLUCOSE 2019-08-[address] 21:12:00 POC GLUCOSE 2019-08-[address] 16:36:00 POC GLUCOSE 2019-08-[address] 11:52:00 HEMOGLOBIN & HEMATOCRIT 2019-08-12 Radha [facility] 10:01:00 Yuk Augusto SMALL BOWEL CAPSULE 2019-08-12 Carlos [facility] 09:35:00 POC GLUCOSE 2019-08-[address] 08:17:00 HEMOGLOBIN & HEMATOCRIT 2019-08-12 Radha [facility] 00:17:00 Yuk Augusto BASIC METABOLIC PANEL 2019-08-12 Jose F [facility] 00:17:00 MAGNESIUM LEVEL 2019-08-12 Jose F Wood t 00:17:00 HC COMPLETE BLD COUNT W/AUTO DIFF 2019-08-12 Jose F Woodist 00:17:00 ESTIMATED GFR 2019-08-12 Jose F Wood t 00:17:00 POC GLUCOSE 2019-08-[address] 22:19:00 SURGICAL PATHOLOGY REQUEST 2019-08-11 Leatha [facility]vin [facility] 18:01:00 POC GLUCOSE 2019-08-[address] 16:03:00 COLONOSCOPY 2019-08-11 Carlos Ram Method ist 14:58:00 HEMOGLOBIN & HEMATOCRIT 2019-08-11 Radha [facility] 11:00:00 Yuk Augusto BASIC METABOLIC PANEL 2019-08-11 Jose F [facility] 03:33:00 MAGNESIUM LEVEL 2019-08-11 Jose F Wood Methodis t 03:33:00 ESTIMATED GFR 2019-08-11 Jose F Wood Methodis t 03:33:00 B NATRIURETIC PEPTIDE 2019-08-11 Jose F [facility] 03:00:00 HEMOGLOBIN & HEMATOCRIT 2019-08-11 Carlos Ram [facility] 03:00:00 HEMOGLOBIN & HEMATOCRIT 2019-08-10 Radha [facility] 11:10:00 Yuk Augusto POC GLUCOSE 2019-08-[address] 08:25:00 BASIC METABOLIC PANEL 2019-08-10 [facility] 00:15:00 Yuk Augusto HC COMPLETE BLD COUNT W/AUTO DIFF 2019-08-10 Tess [facility] 00:15:00 Yuk Augusto PHOSPHORUS LEVEL 2019-08-[address] 00:15:00 Yuk Augusto IONIZED CALCIUM 2019-08-10 Radha Stubbs Methodis t 00:15:00 Yuk Augusto MAGNESIUM LEVEL 2019-08-10 Radha Stubbs Methodis t 00:15:00 Yuk Augusto ESTIMATED GFR 2019-08-10 Radha Stubbs Methodis t 00:15:00 Yuk Augusto HEMOGLOBIN & HEMATOCRIT 2019-08-09 Radha [facility] 22:22:00 Yuk Augusto POC GLUCOSE 2019-08-[address] 19:53:00 HEMOGLOBIN & HEMATOCRIT 2019-08-09 Radha [facility] 17:37:00 Yuk Augusto HEMOGLOBIN & HEMATOCRIT 2019-08-09 Radha [facility] 12:57:[address] HEAD WO CONTRAST 2019-08-09 Danielle Catherine Meth odist 11:27:16 TRANSFUSE RED BLOOD CELLS 2019-08-09 Radha [facility] 09:20:43 Yuk Augusto HC COMPLETE BLD COUNT W/AUTO DIFF 2019-08-09 Tess [facility] 06:05:00 Yuk Augusto XR CHEST 1 VW PORTABLE 2019-08-09 Radha Stubbs M ethodist 05:32:40 Yuk Augusto BASIC METABOLIC PANEL 2019-08-09 Radha Stubbs Me thodist 04:00:00 Yuk Augusto PHOSPHORUS LEVEL 2019-08-09 Enoc, Radha [facility] 04:00:00 Yuk Augusto MAGNESIUM LEVEL 2019-08-09 Enoc, Radha [facility] 04:00:00 Yuk Augusto IONIZED CALCIUM 2019-08-09 Enoc, Radha [facility] 04:00:00 Yuk Augusto ESTIMATED GFR 2019-08-09 Enoc, Radha [facility] 04:00:00 Yuk Augusto TRANSFUSE RED BLOOD CELLS 2019-08-09 Kris Grace [facility] 00:04:22 Francesco TROPONIN 2019-08-09 Enoc, Radha [facility] 00:00:00 Yuk Augusto TTE COMPLETE, WO CONTRAST, W 2019-08-08 Nelson Castaneda [facility] DOPPLER ([id number]) 21:15:00 Quan POC GLUCOSE 2019-08-[address] 19:53:00 HEMOGLOBIN & HEMATOCRIT 2019-08-08 Radha [facility] 18:15:00 Yuk Augusto TROPONIN 2019-08-08 Enoc, Radha [facility] 18:15:00 Yuk Augusto XR CHEST 1 VW PORTABLE 2019-08-08 Radha Stubbs M ethodist 14:31:24 Yuk Augusto TRANSFUSE RED BLOOD CELLS 2019-08-08 Radha [facility] 14:24:16 Yuk Augusto ECG 12-LEAD 2019-08-[address] 13:52:53 POC GLUCOSE 2019-08-[address] 13:51:00 HC COMPLETE BLD COUNT W/AUTO DIFF 2019-08-08 Leatha Irvinist 12:41:00 MAGNESIUM LEVEL 2019-08-[address] 12:30:00 PHOSPHORUS LEVEL 2019-08-08 Leatha Irvin ist 12:30:00 COMPREHENSIVE METABOLIC PANEL 2019-08-08 Leatha [facility]vin [facility] 12:30:00 TROPONIN 2019-08-[address] 12:30:00 ESTIMATED GFR 2019-08-[address] 12:30:00 ECG 12-LEAD 2019-08-08 Brook Yeung Methodis t 11:45:31 ESOPHAGOGASTRODUODENOSCOPY (EGD) 2019-08-08 Carlos Ramist 10:30:00 HEMOGLOBIN & HEMATOCRIT 2019-08-08 SulaimanMauro Angel Baezaist 08:10:00 TRANSFUSE RED BLOOD CELLS 2019-08-08 Kris Grace [facility] 07:40:01 Francesco POC GLUCOSE 2019-08-[address] 07:26:00 TRANSFUSE RED BLOOD CELLS 2019-08-08 Kris Grace 07:04:17 Francesco XR CHEST 1 VW PORTABLE 2019-08-08 Kris Grace M ethodist 04:14:30 Francesco IONIZED CALCIUM 2019-08-[address] 03:46:00 POC GLUCOSE 2019-08-[address] 03:28:00 BASIC METABOLIC PANEL 2019-08-08 Brook Yeung [facility]ist 02:00:00 CBC WITH PLATELET AND DIFFERENTIAL 2019-08-08 Marika Yeungist 02:00:00 IONIZED CALCIUM 2019-08-08 Brook Yeungis t 02:00:00 MAGNESIUM LEVEL 2019-08-08 Brook Yeungis t 02:00:00 PHOSPHORUS LEVEL 2019-08-[address] 02:00:00 ESTIMATED GFR 2019-08-08 Provider, Rasheeda [facility] Method ist 02:00:00 MANUAL DIFFERENTIAL 2019-08-08 Provider, Rasheeda [facility] 02:00:00 TRANSFUSE RED BLOOD CELLS 2019-08-08 Brook Yeung [facility] 01:20:12 TRANSFUSE RED BLOOD CELLS 2019-08-07 Brook Yeung [facility] 23:41:01 POC GLUCOSE 2019-08-[address] 23:39:00 POSITIVE ZENOBIA REFLEX WITH SALINE 2019-08-07 Leatha Irvinist 21:05:00 DIRECT HEBERT' (ZENOBIA) 2019-08-07 Leatha Irvin [facility] 21:05:00 POC GLUCOSE 2019-08-[address] [facility] 20:12:00 CT HEAD WO CONTRAST 2019-08-07 Brook Yeung Meth odist 19:45:29 TTE COMPLETE, WO CONTRAST, W 2019-08-07 GamalJosemanuel clark [facility] DOPPLER ([id number]) 18:00:00 HC COMPLETE BLD COUNT W/AUTO DIFF 2019-08-07 Brook Yeung [facility] 17:00:00 PROTHROMBIN TIME WITH INR 2019-08-07 Brook Yeungto n [facility] 17:00:00 PARTIAL THROMBOPLASTIN TIME (PTT) 2019-08-07 Brook Yeung [facility] 17:00:00 HEMOGLOBIN A1C 2019-08-07 Brook Yeung Method[facility] t 17:00:00 SMEAR REVIEW 2019-08-07 Kelby Contrerasis t 17:00:00 PREPARE RBC 2019-08-07 Radha Stubbs Methodis t 17:00:00 Yuk Augusto XR ABDOMEN 1 VW PORTABLE 2019-08-07 Brook Yeung [facility] 15:44:23 XR CHEST 1 VW PORTABLE 2019-08-07 Brook Yeung M ethodist 15:44:13 POC GLUCOSE 2019-08-07 Kelby Contreras Methodis t 15:12:00 COMPREHENSIVE METABOLIC PANEL 2019-08-07 Brook Yeung [facility] 15:06:00 IONIZED CALCIUM 2019-08-07 Brook Yeung Method[facility] t 15:06:00 MAGNESIUM LEVEL 2019-08-07 Brook Yeung Methodis t 15:06:00 PHOSPHORUS LEVEL 2019-08-[address] 15:06:00 THYROID STIMULATING HORMONE 2019-08-07 Brook Yeung ton [facility] 15:06:00 T4, FREE 2019-08-07 Brook Yeung Method[facility] t 15:06:00 LACTIC ACID LEVEL 2019-08-07 Brook Yeung Method ist 15:06:00 ESTIMATED GFR 2019-08-07 Brook Yeung Methodis t 15:06:00 ENDOSCOPY WRIST W/RELEASE OF 2018-09-24 Mem [facility] [place] TRANSVERSE CARPAL LIGAMENT [id number] 13:42:00 (Right)<sup>1</sup> TENDON SHEATH INCISION (EG. FOR 2018-09-24 [facility] TRIGGER FINGER) [id number] 13:42:00 (Right)<sup>2</sup> Pacemaker care<sup>3</sup> 2011-11-25 Anasamantha Ceja 00:00:00 [facility] [place] [place] Physicians [facility] of [facility] tunnel [facility] Physicians Carpal tunnel [facility] Colonoscopy [facility] kidney stone removed [facility] Tonsillectomy [facility] Plan of Care Planned Activity Planned Date Details Comments Source Future Scheduled 2020-06-25 INFLUENZA VACCINE [place] [facility] 00:00:00 [code = INFLUENZA VACCINE] Future Scheduled 2007 65+ PNEUMOCOCCAL [facility] 00:00:00 VACCINE (1 of 2 - PCV13) [code = 65+ PNEUMOCOCCAL VACCINE (1 of 2 - PCV13)] Future Scheduled 1992-02-20 [facility] 00:00:00 [code = SHINGLES VACCINES (#1)] Encounters Start End Encounter Admission Attending Care Care Encounter Source Date/Time Date/Time Type Type Clinicians Facility Department ID 2020-05-18 Outpatient [facility] CAR [id number] MH 12:10:20 2020-05-24 2020-05-24 Outpatient [facility] CAR [id number] [facility] 05:57:00 05:57:00 2019-08-04 2019-08-04 Quan Lyons [facility] [place] - [id number] M atagor 00:00:00 00:00:00 MD Graham: [address] [facility] [address] [address] , Ph. 2019-03-20 2019-03-20 Outpatient [facility] CAR [id number] [facility] 09:06:00 09:06:00 2018-11-06 2018-11-06 Appointmen [facility] [id number] Univers 13:00:00 13:00:00 t; Crystal SMITH [facility] - Andrzej Poon M.D. Trace 2 ans 2018-10-08 2018-10-08 [facility], [facility] UTP [id number] Univers 14:45:00 14:45:00 t; Crystal SMITH [facility] Andrzej SMITH M.D. Trace 1 ans 2018-09-24 2018-09-24 Outpatient Aleksander, [id number] 06:04:17 10:40:00 Nelson 8 2018-09-24 2018-09-24 [facility]ER, [facility] UTP [id number] Univers 08:00:00 08:00:00 t; Crystal SMITH y of [place], [place] Mikal SMITH M.D. ans 2018-08-13 2018-08-13 [facility] ALEKSANDER, [facility] UTP [id number] Univers 15:30:00 15:30:00 t; Crystal SMITH y [place], [place] Mikal SMITH M.D. ans 2018-08-06 2018-08-06 [facility] GILMER CHU UTP [id number] Univers 11:15:00 11:15:00 t; efrem ANAYA M.D. [place] Mikal ANAYA M.D. ans 2018-07-30 2018-07-30 [facility] ALEKSANDER, [facility] UTP [id number] Univers 15:00:00 15:00:00 t; [facility] [place] Mikal SMITH M.D. [facility] Results Test Description Test Time Test Comments Results Result Comments Source POC glucose 2019-08-15 11:51:29 Test Item Value Reference Range Interpretation Comme [facility] POC glucose (test code = 127 mg/dL 65-99 H No Action NeededMeter ID: [id number]) [id number] tor: Ryan [facility] Lab Interpretation (test code = Abnormal 76819-7) [facility] with platelet and [id number] 00:28:56 Test Item Value Reference Range Interpretation Comments WBC (test code = 16343-1) 5.84 4.50- 11.00 k/uL RBC (test code = 84505-9) 3.27 m/uL 4.4-6 L HGB (test code = 718-7) 9.4 g/dL 14-18 L HCT (test code = 4544-3) 30.3 % 41-51 L MCV (test code = 787-2) 92.7 fL 82-100 MCH (test code = 785-6) 28.7 pg 27-34 MCHC (test code = 786-4) 31.0 g/dL 31-37 RDW - SD (test code = 50.6 fL 37-55 71947-2) MPV (test code = 54074-2) 10.5 fL 8.8-13.2 Platelet count (test code 133 150- 400 k/uL L = 46148-3) Nucleated RBC (test code 0.00 /100 WBC = 89358-3) Neutrophils (test code = 61.1 % 39-69 95380-7) Lymphocytes (test code = 24.5 % 25-45 L 73922-8) Monocytes (test code = 12.5 % 0-10 H 67345-1) Eosinophils (test code = 1.2 % 0-5 37102-9) Basophils (test code = 0.5 % 0-1 29537-2) Immature granulocytes 0.2 % 0-1 "Immat ure (test code = 57204-4) granul ocytes" (promyelocytes, myelocytes, metamyelocytes) Lab Interpretation (test Abnormal code = 95172-9) [facility] MethodistBasi metabolic [id number] 07:06:38 Test Item Value Reference Range Interpretation Comments Sodium (test code = 2951-2) 141 135- 148 mEq/L Potassium (test code = 2823-3) 4.3 3.5- 5.0 mEq/L Chloride (test code = 2075-0) 107 98- 112 mEq/L CO2 (test code = 8-9) 22 24- 31 mEq/L L Anion gap (test code = 94646-8) 12@ANIO 7- 15 mEq/L BUN (test code = 3094-0) 7 mg/dL 8-23 L Creatinine (test code = 2160-0) 1.01 mg/dL 0.7-1.2 Glucose (test code = 2345-7) 105 mg/dL 65-99 H Calcium (test code = 43404-1) 8.7 mg/dL 8.8-10.2 L Lab Interpretation (test code = Abnormal 59050-8) [facility] MethodistMagnesium [id number] 07:06:38 Test Item Value Reference Range Interpretation Comments Magnesium (test code = 96889-5) 2.2 mg/dL 1.6-2.4 Ortiz MethodistEstimated [id number] 07:06:37 Test Item Value Reference Range Interpretation Comments Estimated GFR (test 71 mL/min/1.73 m2 Adrienne moncada Units code = 5488) InterpretationG 1 >=90 Normal or highG2 60-89 Mildly llewsanoiB4v 45-59 Mildly to mode rately aieyfluagS8j 30-44 Moderately to severely decreasedG4 15-29 Severely decre asedG5 <15 Kidn ey failureThe eGFR was calculated [place] the Chronic Kidney Disease Epidemiology Co llaboration (CKD-EPI) equat ion. Interpretation is based on recommendations of the National Kidney Foundation-Kidn ey Disease Outcomes Qualit y Initiative (NKF-KDOQI) pub lished in 2014. [facility] MethodistSurgical pathology [id number] 21:01:35 Test Item Value Reference Range Interpretation Comments Case number (test code = [id number]) Surgical pathology See link below for report (test code = PDF Lab Report [id number]) Result status (test code This is Final Report = [id number]) for [id number] [facility] MethodistHemoglobin & [id number] 10:21:46 Test Item Value Reference Range Interpretation Comments HGB (test code = 718-7) 10.1 g/dL 14-18 L HCT (test code = 4544-3) 32.4 % 41-51 L Lab Interpretation (test code = Abnormal 18395-7) Traer MethodistB natriuretic [id number] 04:01:15 Test Item Value Reference Range Interpretation Comments BNP (test code = 52370-4) 207 pg/mL 0-100 H Lab Interpretation (test code = Abnormal 40473-9) Ort[facility] MethodistIonized [id number] 01:30:04 Test Item Value Reference Range Interpretation Comments pH (test code = 2753-2) 7.45 Ionized calcium (test code = 1.17 mmol/L 1.11-1.32 ) Ortiz MethodistPhosphorus [id number] 00:56:52 Test Item Value Reference Range Interpretation Comments Phosphorus (test code = 2777-1) 3.0 mg/dL 2.4-4.5 [facility] MethodistECG 12 [id number] 19:47:54 Test Item Value Reference Range Interpretation Comments Ventricular rate (test 60 code = 253) Atrial rate (test code 60 = 255) [place] interval (test code 212 = 266) QRSD interval (test 98 code = 260) QT interval (test code 434 = 264) QTC interval (test code 434 = 265) QRS axis 1 (test code = 19 268) T wave axis (test code 21 = 270) EKG impression (test Atrial-paced rhythm code = 273) with prolonged AV conduction-Abnormal ECG-In automated comparison with ECG of 08-AUG-2019 11:45,-No significant change was found- Traer MethodistEchocardiogram complete w contrast and 3D if [id number] 13:32:00Interface, Radiology Results In - 08/09/2019 1:33 PM CDT Echocardiography Report [id number] [place] [id number] Pat.Name: SOLOMON TIAN Pat.ID: [id number].Date: 08/08/2019 Refer.MD: LEATHA IRVIN MD Exam Time: 8:08:00 PM Study Type:Routine Echo Height: 70in Weight: 225lb BSA: 2.2 m2 Age: 3 1940,79Y Sex: MALE BP: 127/55 HR: 62 bpm Sonogrphr: Candis William RDCS, RVT Pat. Stat.:Inpatient Room: [place] [address] Study Status:Final Echo Event ID:[id number] Order ID: [id number] Reason forStudy:pre op clearance Procedures:2D Echo, Colorflow Doppler, Strain, Portable, StatRace: C SUMMARY: LV EF is hyperdynamic. RV systolic function is normal. FINDINGS:---- LV: LV size is normal. LV EF is hyperdynamic. Overall wall motion is hyperdynamic. Estimated EF is >70%. Septal motion is paradoxical secondary to LBBB or conduction abnormality.RV: RV size is normal. Possible pacer lead RV systolic fun ction is normal.LA: LA volume is mild to moderately enlarged.RA: RA size is normal.AO: Aortic root diameter is normal.PANKAJ: Trace anterior and posterior pericardial effusion.AV: Aortic valve not well seen. Mild aortic regurgitation.MV: No structural MV abnormalities noted. Mild mitral regurgitation. PV: Pulmonic valve not well seen.TV: No structural TV abnormalities noted. Mild tricuspid regurgitation Lea: Diastolic dysfunction Grade II (Moderate): Impaired relaxation with elevated LV filling pressures.Other: Estimated PA systolic pressure is 38 mmHg, assuming a mean RAP of 10 mmHg. MEASUREMENTS: 2DParasternal Long [place] LVOT 2 cm LA Ds 4 cm LVIDd 4.6 cm Index 2.1 cm/m2 Ao An 2.2 cm LVIDs 2.2 cm Ao Rtd 3.3 cm Index 1.5 cm/m2 LV%fs 53.5 % LV Mass 197.6 g (122- 174) IVSd 1.4 cm LVM Index 89.8 g/m2 LVPWd 0.9 cm RWT 0.4 LA Sng Plane LA Area 23.9 cm2 (8.8-23.4) LA Vol 83.7 ml Index 38 ml/m2 LA LngAx 5.6 cm RA Sng Plane RA Area 16.7 cm2 (8.3-19.5) RA Vol 43 ml Index 19.5 ml/m2 RA LngAx 5.3 cm DOPPLERLVOT Stroke Vol LVOT 2 cm LVOT CO 6 l/min LVOT TVI 27.1 cm LVOT CI 2.7 l/m/m2 LVO T Tm 374 msec HR 70 bpm LVOT SV 85.2 ml Emfdgo5008/09/2019 01:32 PMSu Scott Ulloa M.D.[facility] MethodistCT Head Wo [id number] 11:30:00Hm Interface, Radiology Results 08/09/2019 11:33 AM CDTEXAMINATION: CT HEAD WO CONTRASTCLINICAL HISTORY: Follow up acute stroke vs recurdescence of prior stroke can't have MRICOMPARISON: Head CT scan dated August 07, 2019TECHNIQUE: Noncontrast enhanced images of the brain were obtained from the skull base to the vertex. Both soft tissue and bone reconstruction algorithms were performed. CT scans are performed using radiation dose reduction techniques. Technical factors are evaluated and adjusted to ensure appropriate moderation of exposure. Automated dose management technology is applied to adjust radiation exposure while achieving a diagnostic quality image.FINDINGS:The ventricles, sulci and CSF- containing spaces are normal size and configuration for the patient's age.Small hypodense areas seen within the supratentorial white matter without associated vasogenic edema.The arvizu-white matter interface is within normal limits. There is no evidence of mass, hemorrhage orextraaxial fluid collection. There is no evidence of midline shift or brain herniation. There is noother macrostructural abnormalities within the cerebral hemispheres, basal ganglia, brainstem or cere bellum. The visualized bony structures are unremarkable. The paranasal sinuses are well aerated.Status post cataract surgery seen bilaterally. Borderline bilateral exophthalmos.IMPRESSION:Negative for acute intracranial abnormality, mass, hemorrhage, extra-axial fluid collection or hydrocephalus.[id number] [facility] MethodistPrepare RBC, 1 [id number] 07:59:00 Test Item Value Reference Range Interpretation Comments Product name (test Red Blood Cells -1, code = 25) Leukored Unit number (test code [id number] = [id number]) Product code (test [id number] code = 3092) Dispense status (test Transfused code = 24) Blood expiration date (test code = 302) Blood type code (test 6200 code = 308) Blood type (test code A POSITIVE = 1314) Angel PeresXR Chest 1 Vw [id number] 06:46:53Hm Interface, Radiology Results - 08/09/2019 6:50 AM CDTEXAMINATION: XR CHEST 1 VW PORTABLECLINICAL HISTORY: ICU pt stable with no clinical status changesCOMPARISON: Recent chestIMPRESSION:Support hardware projects in good and similar position. Stable mild enlargement of the cardiomediastinal silhouette. Aortic arch is heavily calcified.Lungs are hyperexpanded. Peribronchial cuffing maybe due to bronchitis or mild edema.Patchy foci of scarring bilaterally. No confluent airspace opacity, pleural effusion, or pneumothorax.[id number] Angel PeresSshcgbjwkPkephtnd6010-14-01 01:15:26 Test Item Value Reference Range Interpretation Comments Troponin (test code = 0.045 ng/mL 0-0.04 H [place] [facility] 64[address]-1) Laboratories ch anged methodology effective: 2018 at 10:00 amThe new method has a 99 th percentile cuto ff of 0.040 ng/mL Lab Interpretation Abnormal (test code = 79886-0) Angel PeresComprehensive metabolic [id number] 13:06:45 Test Item Value Reference Range Interpretation Comments Sodium (test code = 140 135- 148 mEq/L 2951-2) Potassium (test code = 4.0 3.5- 5.0 mEq/L 2823-3) Chloride (test code = 110 98- 112 mEq/L 2075-0) CO2 (test code = 8-9) 23 24- 31 mEq/L L Anion gap (test code = 7@ANIO 7- 15 mEq/L 78304-8) BUN (test code = 3094-0) 17 mg/dL 8-23 Creatinine (test code = 1.02 mg/dL 0.7-1.2 2160-0) Glucose (test code = 120 mg/dL 65-99 H 2345-7) Calcium (test code = 7.7 mg/dL 8.8-10.2 L 62612-8) Protein (test code = 5.2 g/dL 6.3-8.3 L [place] 2885-2) 4.6-7.0 g/dL 1 week 4.4-7.6 g/dL7 months-1year 5.1-7.3 g/dL 1-2 years 5.6-7.5 g/dL>3 years 6.0-8.0 g/dL18- 150 6.3-8.3 g/dL Albumin (test code = 2.9 g/dL 3.5-5 L 1751-7) A/G ratio (test code = 1.3 0.7-3.8 1759-0) Alkaline phosphatase 32 U/L 40-129 L (test code = 6768-6) AST (test code = 1920-8) 15 U/L 10-50 ALT (test code = 1742-6) 11 U/L 5-50 Total bilirubin (test 1.1 mg/dL 0-1.2 code = 1974-2) Lab Interpretation (test Abnormal code = 99433-1) [facility] MethodistEchocardiogram complete w contrast and 3D if [id number] 11:14:00Interface, Radiology Results In - 08/08/2019 11:14 AM CDT Echocardiography Report [id number]Name: SOLOMON TIAN Pat.ID: [id number].Date: 08/07/2019 Refer.MD: KELBY CONTRERAS MD Exam Time: 5:57:00 PM Study Type:Routine Echo Height: 70in Weight: 225lb BSA: 2.2 m2 Age: 3 1940,79Y Sex: MALE BP: 144/65 HR: 68 bpm Sonogrphr: CHRISSY Marcus Pat. Stat.:Inpatient Room: SP4687 Study Status:Final Echo Event ID:[id number] Order ID: [id number] Reason forStudy:Lightheadedness/ Presyncope/Syncope - Syncope whenthere are no other symptoms or signs of cardiovascular disease;Syncope - Intermediate or high global CAD riskProcedures:2D Echo, Colorflow Doppler, Portable, Intravenous OptisonContrastRace: C ---------SUMMARY: LV EF is hyperdynamic. RV systolic function is normal. Aortic valve sclerosis. FINDINGS: LV: LV size is normal. LV EF is hyperdynamic. Overall wall motion is hyperdynamic. Estimated EF is >70%.RV: RV size is normal. RV systolic function is normal.LA: LA volume is mild to moderately enlarged.RA: RA size is normal.AO: Aortic root diameteris normal.PANKAJ: Small anterior and posterior pericardial effusion. There is an anterior space consistent with a prominent epicardial fat pad.AV: Aortic valve sclerosis. Mild to moderate aortic regurgitation. MV: No structural MV abnormalities noted. Mild mitral regurgitation. PV: Pulmonic valve not well seen.TV: No structural TV abnormalities noted.Lea: Diastolic dysfunction Grade II (Moderate): Impaired relaxation withelevated LV filling pressures.Other: Insufficient TR jet to estimate PA systolic pressure.-------- MEASUREMENTS: 2DParasternal Long [place] LVOT 2 cm LA Ds 3.7 cm LVIDd 5 cm Index 2.3 cm/m2 Ao An 2.4 cm LVIDs 2.6 cm Ao Rtd 3.4 cm Index 1.6 cm/m2 LV%fs 48 % LV Mass 194.4 g (122-174) IVSd 1 cm LVM Index 88.4 g/m2 LVPWd 1.1 cm RWT 0.[address] LA Area 24.6 cm2 (8.8-23.4) LA Vol 84.9 ml Index 38.6 ml/m2 LA LngAx 5.9 cm DOPPLERLVOT Stroke Vol LVOT 2 cm LVOT CO 6 l/min LVOT TVI 27.8 cm LVOT CI 2.7 l/m/m2 LVOT Tm 306 msec HR 69 bpm LVOT SV 87.3 ml Signed 08/08/2019 11:14 Oscar Ulloa M.D. [facility] MethodistManual [id number] 06:35:51 Test Item Value Reference Range Interpretation Comments Manual differential (test code = PERFORMED 30505-5) Neutrophils (test code = 73.0 % 39-69 H 88374-6) Lymphocytes (test code = 18.0 % 25-45 L 38188-5) Monocytes (test code = 36854-5) 8.0 % 0-10 Eosinophils (test code = 1.0 % 0-5 53542-5) Basophils (test code = 28366-5) 0.0 % 0-1 Metamyelocytes (test code = 0 % 740-1) Promyelocytes (test code = 0 % 783-1) Platelet slide review (test code Don adequate = 95844-0) Anisocytosis (test code = 702-1) Moderate Polychromasia (test code = Moderate 55555-0) Lab Interpretation (test code = Abnormal 95923-0) [facility] MethodistPositive ZENOBIA reflex with [id number] 22:26:00 Test Item Value Reference Range Interpretation Comments IgG Hebert, gel (test code = 1590) NEG [facility] MethodistDirect Hebert' (ZENOBIA)2019-08-07 22:26:00 Test Item Value Reference Range Interpretation Comments Zwsu-RxU-B0w Polyspecific (test code = NEG 2585) [facility] MethodistSmear [id number] 20:02:50 Test Item Value Reference Range Interpretation Comments Platelet slide review (test code Don slt decr = 82287-9) Anisocytosis (test code = 702-1) Moderate Polychromasia (test code = Moderate 93658-2) Tear drop cells (test code = Occasional 7791-7) Schistocytes (test code = 800-3) Occasional Ovalocytes (test code = 774-0) Moderate Enlarged platelets (test code = Moderate A 82253-0) Lab Interpretation (test code = Abnormal 54687-0) [facility] MethodistHemoglobin [id number] 19:09:09 Test Item Value Reference Range Interpretation Comments Hemoglobin A1C (test 5.5 % 4-5.6 HbA1c c utoffs for code = 44181-2) diagnosing d iabetes:4.0% - 5.6% = normal 5.7% - 6.4% = increase d risk for diabetes (prediabetes) >=6.5% = diabetes Goals for glycemic contro l (ADA 2016)< 7.0% Ta rget for non christiano lts with diabetes. More or less stringent targe ts may be appropriate for individual tracy ents. <7.5% Target for Children and ad olescents with type 1 melissa betes. Angel MethodistType and [id number] 18:17:00 Test Item Value Reference Range Interpretation Comments ABO grouping (test code = 883-9) A Rh type (test code = 57515-9) POS Antibody screen (gel) (test code = NEG 890-4) Angel MethodistT4, [id number] 18:13:54 Test Item Value Reference Range Interpretation Comments T4, free (test code = 3024-7) 1.1 ng/dL 0.9-1.7 [facility] MethodistThyroid stimulating [id number] 18:13:54 Test Item Value Reference Range Interpretation Comments TSH (test code = 3016-3) 1.11 0.27- 4.20 uIU/mL [facility] AryanistLactic acid [id number] 18:00:15 Test Item Value Reference Range Interpretation Comments Lactic acid (test code = 20801-4) 1.1 mmol/L 0.5-2.2 [facility] MethodistPartial thromboplastin time, [id number] 17:54:22 Test Item Value Reference Range Interpretation Comments PTT (test code = 34.8 23.0- 36.0 [place] [address]-5) unfractionated heparin is61.0-112.0 se conds which corresponds to Anti-Xa0.3-0.7 U/ml. [facility] MethodistProthrombin time with [id number] 17:53:49 Test Item Value Reference Range Interpretation Comments Prothrombin time (test 20.4 11.5- 14.5 sec H code = 5902-2) INR (test code = 1.8 The Interna tional 24303-9) Normalized Rati o (INR) is a therapeuti c monitoring tool for patients who ar e stable on oral anticoagulant t herapy. An INR of 2.0-3 .0 is suggested for d eep vein thrombosis/pulm onary embolism. Lab Interpretation Abnormal (test code = 26968-3) Angel MethodistXR Abdomen 1 Vw [id number] 15:55:19Hm Interface, Radiology Results Incoming - 08/07/2019 3:58 PM CDTEXAMINATION: XR ABDOMEN 1 VW PORTABLECLINICAL HISTORY: Abd pain unspecifiedCOMPARISON: None.IMPRESSION:There is nonspecific bowel gas patternModerate amount retained stool in colon, constipation cannot be excludedAge related changesare present throughout the bony structures without evidence of a suspicious focal lesion.[facility]-[id number] BfvlnxibmLLZKXUDJGA5870-63-22 12:28:56294Nukqpplm HermannEEG AWAKE AND [id number] 15:41:00Reason for exam:->Abnormal neurologic event with return to baselineShould this be performed at the bedside?->YesNeurophysiology Electroencephalogram Report DATE OF REPORT: 03/26/18Date(s) of Study: 03/26/18ACC: [id number]: 18-790Start time: 1246 hrsStop time: 1307 hrsICD-10: R56.9 Unspecified ConvulsionsCPT Code: 80046 EEG: awake and drowsy <40 min HISTORY: 78 year old male with an abnormal neurological event and subsequent return to baseline. He was referred to assess for abnormalities. MEDICATIONS THAT COULDAFFECT EEG: Valproic Acid, Trazodone TECHNICAL SUMMARY: This is a digital video EEG recorded with 32input channels reviewed with bipolar and referential montages using the modified combinatorial system nomenclature.DESCRIPTION OF RECORD: During the maximally alert state a 9 Hz posterior dominant rhythm was seen that was symmetric, reactive to eye opening and well regulated. More anteriorly, similarfrequencies were present with >18 Hz activities seen frontally. There was no evidence of drowsiness or sleep.Activation Procedures: Hyperventilation was not performed. Photic stimulation was not done.EKG: A single lead EKG showed an average resting heart rate of 84 beats per minute and several PVCs. IMPRESSION: Normal awake and drowsy EEG. There were no epileptiform features or electrographic seizures seen.CLINICAL CORRELATION: An EEG without epileptiform discharges does not exclude the possibility of epilepsy. If the clinical suspicion of epilepsy remains, consider additional EEG recordings. The single EKG tracing show an abnormal rhythm which may be better evaluated with a 15-lead EKG. Radha Fraser MDEpilepsy Fellow Attending note: I personally reviewed this EEG record in its entirety Adriano agree with the details of this report.Tonja Wall MD, PhDClinical Neurophysiology Attending POCT-GLUCOSE [id number] 12:19:00 Test Item Value Reference Range Interpretation Comments POC-GLUCOSE METER 176 mg/dL 70-110 H TESTED AT [facility] 67 ([facility]) (test code = DAISY Sheridan [facility] 1538) [address] [id number] 10:34:00 Test Item Value Reference Range Interpretation Comments RPR SCREEN ([facility]) (test code = Nonreactive Nonreactive 420) POCT-GLUCOSE [id number] 08:50:00 Test Item Value Reference Range Interpretation Comments POC-GLUCOSE METER 104 mg/dL 70-110 TESTED AT [place] [address] ([facility]) (test code = DAISY Sheridan [facility] 1538) [address] RAD, CHEST, 1 VIEW, NON [id number] 07:59:00Reason for exam:->chest painShould this be performed at the bedside?->YesFINAL REPORT Chest one view compared to March 25, 2018 Discussion: Left chest pacemaker and cardiac prominence are noted. Lungs clear. No effusion or pneumothorax. Signed: Jj Cary MDReport Verified Date/Time: 03/26/2018 07:59:48 Reading Location: [facility] Radiology Reading Room [id number] 04:51:00 Test Item Value Reference Range Interpretation Comments MAGNESIUM (AKER) 2.4 mg/dL 1.6-2.6 Specimen slightly (test code = 627) hemolyzed BASIC METABOLIC [id number] 04:51:00 Test Item Value Reference Range Interpretation Comments SODIUM (BEAKER) 137 meq/L 136-145 (test code = 381) POTASSIUM (BEAKER) 4.4 meq/L 3.5-5.1 Specimen slightly (test code = 379) hemolyzed CHLORIDE (BEAKER) 101 meq/L 98-107 (test code = 382) CO2 (BEAKER) (test 26 meq/L 22-29 code = 355) BLOOD UREA NITROGEN 22 mg/dL 7-21 H (BEAKER) (test code = 354) CREATININE (BEAKER) 0.84 mg/dL 0.57-1.25 Specimen slightly (test code = 358) hemolyzed GLUCOSE RANDOM 97 mg/dL 70-105 (BEAKER) (test code = 652) CALCIUM (BEAKER) 9.6 mg/dL 8.4-10.2 (test code = 697) EGFR (BEAKER) (test 89 mL/min/1.73 ESTIMA GIOVANNI GFR IS code = 1092) sq m NOT ACCURATE CREATININE CLEARANCE IN PREDICTING GLOMERULAR FILTRATION RATE . ESTIMATED GFR I S NOT APPLICABLE FOR DIALYSIS PATIEN TS. CBC W/PLT COUNT & AUTO [id number] 04:23:00 Test Item Value Reference Range Interpretation Comments WHITE BLOOD CELL COUNT (BEAKER) 6.7 K/ L 3.5-10.5 (test code = 775) RED BLOOD CELL COUNT (BEAKER) 4.52 M/ L 4.63-6.08 L (test code = 761) HEMOGLOBIN (BEAKER) (test code = 15.0 GM/DL 13.7-17.5 410) HEMATOCRIT (BEAKER) (test code = 44.6 % 40.1-51.0 411) MEAN CORPUSCULAR VOLUME (BEAKER) 98.7 fL 79.0-92.2 H (test code = 753) MEAN CORPUSCULAR HEMOGLOBIN 33.2 pg 25.7-32.2 H (BEAKER) (test code = 751) MEAN CORPUSCULAR HEMOGLOBIN CONC 33.6 GM/DL 32.3-36.5 (BEAKER) (test code = 752) RED CELL DISTRIBUTION WIDTH 14.7 % 11.6-14.4 H (BEAKER) (test code = 412) PLATELET COUNT (BEAKER) (test code 94 K/CU MM 150-450 L = 756) MEAN PLATELET VOLUME (BEAKER) 11.5 fL 9.4-12.4 (test code = 754) NUCLEATED RED BLOOD CELLS (BEAKER) 0 /100 WBC 0-0 (test code = 413) NEUTROPHILS RELATIVE PERCENT 51 % (BEAKER) (test code = 429) LYMPHOCYTES RELATIVE PERCENT 35 % (BEAKER) (test code = 430) MONOCYTES RELATIVE PERCENT 13 % (BEAKER) (test code = 431) EOSINOPHILS RELATIVE PERCENT 1 % (BEAKER) (test code = 432) BASOPHILS RELATIVE PERCENT 0 % (BEAKER) (test code = 437) NEUTROPHILS ABSOLUTE COUNT 3.46 K/ L 1.78-5.38 (BEAKER) (test code = 670) LYMPHOCYTES ABSOLUTE COUNT 2.33 K/ L 1.32-3.57 (BEAKER) (test code = 414) MONOCYTES ABSOLUTE COUNT (BEAKER) 0.84 K/ L 0.30-0.82 H (test code = 415) EOSINOPHILS ABSOLUTE COUNT 0.07 K/ L 0.04-0.54 (BEAKER) (test code = 416) BASOPHILS ABSOLUTE COUNT (BEAKER) 0.03 K/ L 0.01-0.08 (test code = 417) IMMATURE GRANULOCYTES-RELATIVE 0 % 0-1 PERCENT (BEAKER) (test code = 2801) VALPROIC ACID LEVEL, [id number] 22:53:00 Test Item Value Reference Range Interpretation Comments VALPROIC ACID TOTAL (BEAKER) (test 51 ug/mL 50-100 code = 924) Therapeutic range for some clinical conditions may be >100 ug/mLPOCT-GLUCOSE [id number] 22:03:00 Test Item Value Reference Range Interpretation Comments POC-GLUCOSE METER 109 mg/dL 70-110 TESTED AT [facility] 6720 (BEAKER) (test code = DAISY YODER 1538) [address] [id number] 19:54:00 Test Item Value Reference Range Interpretation Comments PHOSPHORUS (BEAKER) (test code = 3.3 mg/dL 2.3-4.7 604) [id number] 19:54:00 Test Item Value Reference Range Interpretation Comments MAGNESIUM (BEAKER) (test code = 2.9 mg/dL 1.6-2.6 H 627) BASIC METABOLIC [id number] 19:54:00 Test Item Value Reference Range Interpretation Comments SODIUM (BEAKER) 135 meq/L 136-145 L (test code = 381) POTASSIUM (BEAKER) 4.0 meq/L 3.5-5.1 (test code = 379) CHLORIDE (BEAKER) 100 meq/L 98-107 (test code = 382) CO2 (BEAKER) (test 24 meq/L 22-29 code = 355) BLOOD UREA NITROGEN 22 mg/dL 7-21 H (BEAKER) (test code = 354) CREATININE (BEAKER) 0.94 mg/dL 0.57-1.25 (test code = 358) GLUCOSE RANDOM 139 mg/dL 70-105 H (BEAKER) (test code = 652) CALCIUM (BEAKER) 9.7 mg/dL 8.4-10.2 (test code = 697) EGFR (BEAKER) (test 78 mL/min/1.73 ESTIMA GIOVANNI GFR IS code = 1092) sq m NOT ACCURATE CREATININE CLEARANCE IN PREDICTING GLOMERULAR FILTRATION RATE . ESTIMATED GFR I S NOT APPLICABLE FOR DIALYSIS PATIEN TS. RAD, CHEST, 1 VIEW, NON [id number] 19:54:00Reason for exam:->storkeShould this be performed at [...] MDReport Verified Date/Time: 03/25/2018 19:54:22 Reading Location: [facility] B1 C013W Consult Reading Room CBC W/PLT COUNT & AUTO [id number] 19:52:00 Test Item Value Reference Range Interpretation Comments WHITE BLOOD CELL COUNT (BEAKER) 7.8 K/ L 3.5-10.5 (test code = 775) RED BLOOD CELL COUNT (BEAKER) 4.33 M/ L 4.63-6.08 L (test code = 761) HEMOGLOBIN (BEAKER) (test code = 14.5 GM/DL 13.7-17.5 410) HEMATOCRIT (BEAKER) (test code = 42.4 % 40.1-51.0 411) MEAN CORPUSCULAR VOLUME (BEAKER) 97.9 fL 79.0-92.2 H (test code = 753) MEAN CORPUSCULAR HEMOGLOBIN 33.5 pg 25.7-32.2 H (BEAKER) (test code = 751) MEAN CORPUSCULAR HEMOGLOBIN CONC 34.2 GM/DL 32.3-36.5 (BEAKER) (test code = 752) RED CELL DISTRIBUTION WIDTH 14.7 % 11.6-14.4 H (BEAKER) (test code = 412) PLATELET COUNT (BEAKER) (test code 72 K/CU MM 150-450 L = 756) MEAN PLATELET VOLUME (BEAKER) 11.0 fL 9.4-12.4 (test code = 754) NUCLEATED RED BLOOD CELLS (BEAKER) 0 /100 WBC 0-0 (test code = 413) NEUTROPHILS RELATIVE PERCENT 63 % (BEAKER) (test code = 429) LYMPHOCYTES RELATIVE PERCENT 24 % (BEAKER) (test code = 430) MONOCYTES RELATIVE PERCENT 12 % (BEAKER) (test code = 431) EOSINOPHILS RELATIVE PERCENT 1 % (BEAKER) (test code = 432) BASOPHILS RELATIVE PERCENT 0 % (BEAKER) (test code = 437) NEUTROPHILS ABSOLUTE COUNT 4.91 K/ L 1.78-5.38 (BEAKER) (test code = 670) LYMPHOCYTES ABSOLUTE COUNT 1.88 K/ L 1.32-3.57 (BEAKER) (test code = 414) MONOCYTES ABSOLUTE COUNT (BEAKER) 0.92 K/ L 0.30-0.82 H (test code = 415) EOSINOPHILS ABSOLUTE COUNT 0.04 K/ L 0.04-0.54 (BEAKER) (test code = 416) BASOPHILS ABSOLUTE COUNT (BEAKER) 0.03 K/ L 0.01-0.08 (test code = 417) IMMATURE GRANULOCYTES-RELATIVE 0 % 0-1 PERCENT (BEAKER) (test code = 2801) LACTIC ACID, ARTERIAL, WHOLE [id number] 19:50:00 Test Item Value Reference Range Interpretation Comments LACTATE BLOOD 1.8 mmol/L 0.5-2.2 Specimen sligh tly ARTERIAL (2) (BEAKER) hemoly zed (test code = 2874) Effective 03/28/2016: Units/Reference Range ChangeNew: 0.5-2.2 mmol/L Previous: 5-20 mg/dLCALCIUM, [id number] 19:43:00 Test Item Value Reference Range Interpretation Comments CALCIUM IONIZED (BEAKER) (test 1.19 mmol/L 1.12-1.27 code = 698) PH, BLOOD (BEAKER) (test code = 7.43 1810) BLOOD GAS, [id number] 19:41:00 Test Item Value Reference Range Interpretation Comments PH ARTERIAL (BEAKER) (test code = 7.43 7.35-7.45 383) PCO2 ARTERIAL (BEAKER) (test code 40 mmHg 35-45 = 384) PO2 ARTERIAL (BEAKER) (test code = 83 mmHg 80-90 385) O2 SATURATION ARTERIAL (BEAKER) 96.5 % 96.0-97.0 (test code = 386) HCO3 ARTERIAL (BEAKER) (test code 26 mmol/L 21-29 = 388) BASE EXCESS ARTERIAL (BEAKER) 1.6 mmol/L -2.0-3.0 (test code = 387) PATIENT TEMPERATURE (BEAKER) (test 37.0 C code = 1818) CT, CTANGIO [id number] 19:16:00FINAL REPORT CTA carotids and brain 03/25/2018 [...] IMPRESSION: Unremarkable intracranial and extracranial CTAs Signed: Miesha Mcintoshcristina Verified Date/Time: 03/25/201819:16:33 Reading Location: [facility] Radiology Reading Room CT, CAROTID, [id number] 19:16:00FINAL REPORT CTA carotids and brain 03/25/2018 [...] IMPRESSION: Unremarkable intracranial and extracranial CTAs Signed: Miesha Mcintosh Verified Date/Time: 03/25/201819:16:33 Reading Location: [facility] Radiology Reading Room CT, BRAIN, WITHOUT [...] Chronic appearing microvascular and involutional changes. Signed: Miesha Mcintosh Verified Date/Time: 03/25/2018 18:27:45 Reading Location: [facility] Radiology Reading Room POCT-GLUCOSE [id number] 18:16:00 Test Item Value Reference Range Interpretation Comments POC-GLUCOSE METER 103 mg/dL 70-110 TESTED AT [facility] 6720 ([facility]) (test code = [facility] 1538) [address] [id number] 16:16:00 Test Item Value Reference Range Interpretation Comments THYROID STIMULATING HORMONE 0.54 uIU/mL 0.35-4.94 ([facility]) (test code = 772) VITAMIN B12 AND [id number] 16:16:00 Test Item Value Reference Range Interpretation Comments VITAMIN B12 ([facility]) (test code = 687 pg/mL 213-816 774) FOLATE ([facility]) (test code = 362) 14.6 ng/mL >=7.0 HEPATIC FUNCTION [id number] 15:46:00 Test Item Value Reference Range Interpretation Comments TOTAL PROTEIN (AKER) (test code = 7.6 gm/dL 6.0-8.3 770) ALBUMIN (AKER) (test code = 1145) 4.5 g/dL 3.5-5.0 BILIRUBIN TOTAL (BEAKER) (test code 1.2 mg/dL 0.2-1.2 = 377) BILIRUBIN DIRECT (AKER) (test 0.5 mg/dL 0.1-0.5 code = 706) ALKALINE PHOSPHATASE (AKER) (test 49 U/L 40-150 code = 346) AST (SGOT) (MICHAEL) (test code = 21 U/L 5-34 353) ALT (SGPT) (MICHAEL) (test code = 24 U/L 6-55 347) PET, CARDIAC PERFUSION MULTIPLE STUDIES, REST AND [id number] 15:46:00 Reason for exam:->CAD Risk, Intermediate, AsymptomaticFINAL REPORT PROCEDURE: Rest/Stress MYOCARDIAL PERFUSION PET with regaden oson\\XA9\\ CPT CODE: 72466 INDICATION: Intermediate risk for CAD, chest pain. [...] tracer distribution is normal. 6. No previous [facility] study for comparison. NONINVASIV E RISK STRATIFICATION: The above findings are considered intermediate risk (1% to 3% annual mortality rate) Signed: Francesco Goodson MDReport Verified Date/Time: 03/25/2018 15:46:08 Reading Location: [address] Reading Room POCT- GLUCOSE [id number] 12:03:00 Test Item Value Reference Range Interpretation Comments POC-GLUCOSE METER 92 mg/dL 70-110 [facility]ED AT [place] [address] [facility] (test code = [facility] Fatimah [facility] [address] 1538) POCT-GLUCOSE [id number] 08:20:00 Test Item Value Reference Range Interpretation Comments POC-GLUCOSE METER 114 mg/dL 70-110 H TESTED AT [place] [address] [facility] (test code = [facility] 1538) [address] [id number] 05:15:00 Test Item Value Reference Range Interpretation Comments MAGNESIUM (BEAKER) 1.8 mg/dL 1.6-2.6 Specimen slightly (test code = 627) hemolyzed BASIC METABOLIC [id number] 05:15:00 Test Item Value Reference Range Interpretation Comments SODIUM (BEAKER) 137 meq/L 136-145 (test code = 381) POTASSIUM (BEAKER) 3.8 meq/L 3.5-5.1 Specimen slightly (test code = 379) hemolyzed CHLORIDE (BEAKER) 108 meq/L 98-107 H (test code = 382) CO2 (BEAKER) (test 18 meq/L 22-29 L code = 355) BLOOD UREA NITROGEN 17 mg/dL 7-21 (BEAKER) (test code = 354) CREATININE (BEAKER) 0.72 mg/dL 0.57-1.25 Specimen slightly (test code = 358) hemolyzed GLUCOSE RANDOM 108 mg/dL 70-105 H (BEAKER) (test code = 652) CALCIUM (BEAKER) 8.5 mg/dL 8.4-10.2 (test code = 697) EGFR (BEAKER) (test 106 mL/min/1.73 ESTIM ATED GFR IS code = 1092) sq m NOT ACCURATE CREATININE CLEARANCE IN PREDICTING GLOMERULAR FILTRATION RATE . ESTIMATED GFR I S NOT APPLICABLE FOR DIALYSIS PATIEN TS. CBC W/PLT COUNT & AUTO [id number] 05:13:00 Test Item Value Reference Range Interpretation Comments WHITE BLOOD CELL COUNT (BEAKER) 4.9 K/ L 3.5-10.5 (test code = 775) RED BLOOD CELL COUNT (BEAKER) 3.08 M/ L 4.63-6.08 L (test code = 761) HEMOGLOBIN (BEAKER) (test code = 10.3 GM/DL 13.7-17.5 L 410) HEMATOCRIT (BEAKER) (test code = 32.7 % 40.1-51.0 L 411) MEAN CORPUSCULAR VOLUME (BEAKER) 106.2 fL 79.0-92.2 H (test code = 753) MEAN CORPUSCULAR HEMOGLOBIN 33.4 pg 25.7-32.2 H (BEAKER) (test code = 751) MEAN CORPUSCULAR HEMOGLOBIN CONC 31.5 GM/DL 32.3-36.5 L (BEAKER) (test code = 752) RED CELL DISTRIBUTION WIDTH 14.8 % 11.6-14.4 H (BEAKER) (test code = 412) PLATELET COUNT (BEAKER) (test code 59 K/CU MM 150-450 L = 756) MEAN PLATELET VOLUME (BEAKER) 10.8 fL 9.4-12.4 (test code = 754) NUCLEATED RED BLOOD CELLS (BEAKER) 0 /100 WBC 0-0 (test code = 413) NEUTROPHILS RELATIVE PERCENT 56 % (BEAKER) (test code = 429) LYMPHOCYTES RELATIVE PERCENT 31 % (BEAKER) (test code = 430) MONOCYTES RELATIVE PERCENT 11 % (BEAKER) (test code = 431) EOSINOPHILS RELATIVE PERCENT 1 % (BEAKER) (test code = 432) BASOPHILS RELATIVE PERCENT 1 % (BEAKER) (test code = 437) NEUTROPHILS ABSOLUTE COUNT 2.71 K/ L 1.78-5.38 (BEAKER) (test code = 670) LYMPHOCYTES ABSOLUTE COUNT 1.52 K/ L 1.32-3.57 (BEAKER) (test code = 414) MONOCYTES ABSOLUTE COUNT (BEAKER) 0.55 K/ L 0.30-0.82 (test code = 415) EOSINOPHILS ABSOLUTE COUNT 0.05 K/ L 0.04-0.54 (BEAKER) (test code = 416) BASOPHILS ABSOLUTE COUNT (BEAKER) 0.03 K/ L 0.01-0.08 (test code = 417) IMMATURE GRANULOCYTES-RELATIVE 0 % 0-1 PERCENT (BEAKER) (test code = 2801) POCT-GLUCOSE [id number] 03:44:00 Test Item Value Reference Range Interpretation Comments POC-GLUCOSE METER 94 mg/dL 70-110 TESTED AT [place] [address] [facility] (test code = DAISY Sheridan [facility] [address] 1538) POCT-GLUCOSE [id number] 22:46:00 Test Item Value Reference Range Interpretation Comments POC-GLUCOSE METER 111 mg/dL 70-110 H [facility] AT [place] [address] [facility] 1538) [id number] POCT-GLUCOSE [id number] 11:54:00 Test Item Value Reference Range Interpretation Comments POC-GLUCOSE METER 101 mg/dL 70-110 [facility] AT [place] [address] [facility] ([facility] 1538) [address] POCT-GLUCOSE [id number] 08:53:00 Test Item Value Reference Range Interpretation Comments POC-GLUCOSE METER 121 mg/dL 70-110 H TESTED AT [place] [address] ([facility] (test code = [facility] Fatimah [facility] 1538) [address] [id number] 04:28:00 Test Item Value Reference Range Interpretation Comments MAGNESIUM (BEAKER) (test code = 2.1 mg/dL 1.6-2.6 627) BASIC METABOLIC [id number] 04:28:00 Test Item Value Reference Range Interpretation Comments SODIUM (BEAKER) 137 meq/L 136-145 (test code = 381) POTASSIUM (BEAKER) 4.6 meq/L 3.5-5.1 (test code = 379) CHLORIDE (BEAKER) 102 meq/L 98-107 (test code = 382) CO2 (BEAKER) (test 27 meq/L 22-29 code = 355) BLOOD UREA NITROGEN 20 mg/dL 7-21 (BEAKER) (test code = 354) CREATININE (BEAKER) 0.81 mg/dL 0.57-1.25 (test code = 358) GLUCOSE RANDOM 107 mg/dL 70-105 H (BEAKER) (test code = 652) CALCIUM (BEAKER) 9.6 mg/dL 8.4-10.2 (test code = 697) EGFR (BEAKER) (test 93 mL/min/1.73 ESTIMA GIOVANNI GFR IS code = 1092) sq m NOT ACCURATE CREATININE CLEARANCE IN PREDICTING GLOMERULAR FILTRATION RATE . ESTIMATED GFR I S NOT APPLICABLE FOR DIALYSIS PATIEN TS. CBC W/PLT COUNT & AUTO [id number] 04:13:00 Test Item Value Reference Range Interpretation Comments WHITE BLOOD CELL COUNT (BEAKER) 7.1 K/ L 3.5-10.5 (test code = 775) RED BLOOD CELL COUNT (BEAKER) 3.94 M/ L 4.63-6.08 L (test code = 761) HEMOGLOBIN (BEAKER) (test code = 13.1 GM/DL 13.7-17.5 L 410) HEMATOCRIT (BEAKER) (test code = 38.8 % 40.1-51.0 L 411) MEAN CORPUSCULAR VOLUME (BEAKER) 98.5 fL 79.0-92.2 H (test code = 753) MEAN CORPUSCULAR HEMOGLOBIN 33.2 pg 25.7-32.2 H (BEAKER) (test code = 751) MEAN CORPUSCULAR HEMOGLOBIN CONC 33.8 GM/DL 32.3-36.5 (BEAKER) (test code = 752) RED CELL DISTRIBUTION WIDTH 14.7 % 11.6-14.4 H (BEAKER) (test code = 412) PLATELET COUNT (BEAKER) (test code 59 K/CU MM 150-450 L = 756) MEAN PLATELET VOLUME (BEAKER) 10.6 fL 9.4-12.4 (test code = 754) NUCLEATED RED BLOOD CELLS (BEAKER) 0 /100 WBC 0-0 (test code = 413) NEUTROPHILS RELATIVE PERCENT 61 % (BEAKER) (test code = 429) LYMPHOCYTES RELATIVE PERCENT 27 % (BEAKER) (test code = 430) MONOCYTES RELATIVE PERCENT 10 % (BEAKER) (test code = 431) EOSINOPHILS RELATIVE PERCENT 1 % (BEAKER) (test code = 432) BASOPHILS RELATIVE PERCENT 0 % (BEAKER) (test code = 437) NEUTROPHILS ABSOLUTE COUNT 4.33 K/ L 1.78-5.38 (BEAKER) (test code = 670) LYMPHOCYTES ABSOLUTE COUNT 1.92 K/ L 1.32-3.57 (BEAKER) (test code = 414) MONOCYTES ABSOLUTE COUNT (BEAKER) 0.71 K/ L 0.30-0.82 (test code = 415) EOSINOPHILS ABSOLUTE COUNT 0.08 K/ L 0.04-0.54 (BEAKER) (test code = 416) BASOPHILS ABSOLUTE COUNT (BEAKER) 0.03 K/ L 0.01-0.08 (test code = 417) IMMATURE GRANULOCYTES-RELATIVE 0 % 0-1 PERCENT (BEAKER) (test code = 2801) POCT-GLUCOSE [id number] 22:00:00 Test Item Value Reference Range Interpretation Comments POC-GLUCOSE METER 104 mg/dL 70-110 TESTED AT [place] [address] ([facility]) (test code = DAISY Sheridan [facility] 1538) [id number] POCT-GLUCOSE [id number] 18:27:00 Test Item Value Reference Range Interpretation Comments POC-GLUCOSE METER 121 mg/dL 70-110 H TESTED AT [place] [address] ([facility]) (test code = [facility] 1538) [id number] CT, CTA, [id number] 17:50:00FINAL REPORT CTA OF THE CHEST CLINICAL [...] MDReport Verified Date/Time: 03/23/2018 17:50:08 Reading Location: [facility] B1 C013Y CT Body Reading Room TROPONIN [id number] 16:56:00 Test Item Value Reference Range Interpretation Comments [facility] (test code = 0.01 ng/mL 0.00-0.03 397) Troponin I (TnI) levels must be interpreted [...] acidosis, acute neurological disease, and persistent tachyarrhythmia.POCT-GLUCOSE [id number] 14:12:00 Test Item Value Reference Range Interpretation Comments POC-GLUCOSE METER 112 mg/dL 70-110 H TESTED AT [place] [address] ([facility]) (test code = [facility] 1538) [id number] HEMOGLOBIN [id number] 09:26:00 Test Item Value Reference Range Interpretation Comments HEMOGLOBIN A1C ([facility]) (test code = 7.0 % 4.3-6.1 H 368) POCT-GLUCOSE [id number] 08:35:00 Test Item Value Reference Range Interpretation Comments POC-GLUCOSE METER 113 mg/dL 70-110 H TESTED AT [place] [address] ([facility]) (test code = [facility] 1538) [id number] TROPONIN [id number] 08:30:00 Test Item Value Reference Range Interpretation Comments [facility] (test code = 397) < ng/mL 0.00-0.03 [...] failure, acidosis, acute neurological disease, and persistent tachyarrhythmia.[id number] 06:27:00 Test Item Value Reference Range Interpretation Comments MAGNESIUM (BEAKER) (test code = 2.0 mg/dL 1.6-2.6 627) BASIC METABOLIC [id number] 06:27:00 Test Item Value Reference Range Interpretation Comments SODIUM (BEAKER) 135 meq/L 136-145 L (test code = 381) POTASSIUM (BEAKER) 4.5 meq/L 3.5-5.1 (test code = 379) CHLORIDE (BEAKER) 104 meq/L 98-107 (test code = 382) CO2 (BEAKER) (test 21 meq/L 22-29 L code = 355) BLOOD UREA NITROGEN 19 mg/dL 7-21 (BEAKER) (test code = 354) CREATININE (BEAKER) 1.00 mg/dL 0.57-1.25 (test code = 358) GLUCOSE RANDOM 110 mg/dL 70-105 H (BEAKER) (test code = 652) CALCIUM (BEAKER) 9.6 mg/dL 8.4-10.2 (test code = 697) EGFR (BEAKER) (test 73 mL/min/1.73 ESTIMA GIOVANNI GFR IS code = 1092) sq m NOT ACCURATE CREATININE CLEARANCE IN PREDICTING GLOMERULAR FILTRATION RATE . ESTIMATED GFR I S NOT APPLICABLE FOR DIALYSIS PATIEN TS. CREATINE KINASE (CK), TOTAL AND [id number] 06:27:00 Test Item Value Reference Range Interpretation Comments CREATINE KINASE TOTAL (BEAKER) 154 U/L 29-200 (test code = 380) CREATINE KINASE-MB (BEAKER) (test 4.6 ng/mL 0.0-6.6 code = 750) CREATINE KINASE-MB INDEX (BEAKER) 3.0 % (test code = 395) CK-MB Reference Range:<6.7 Normal6.7-10.0 Borderline>10.0 AbnormalTROPONIN [id number] 06:22:00 Test Item Value Reference Range Interpretation Comments TROPONIN I (BEAKER) (test code = [...] acidosis, acute neurological disease, and persistent tachyarrhythmia.LIPID [id number] 04:11:00 Test Item Value Reference Range Interpretation Comments TRIGLYCERIDES (BEAKER) 352 mg/dL Speci men slightly (test code = 540) hemolyzed CHOLESTEROL (BEAKER) 141 mg/dL Specime n slightly (test code = 631) hemolyzed HDL CHOLESTEROL (BEAKER) 48 mg/dL (test code = 976) LDL CHOLESTEROL 23 mg/dL CALCULATED (BEAKER) (test code = 633) Triglyceride Reference Range: Low Risk <150 Borderline 150-199 High Risk 200-499 Very High Risk >=500Cholesterol Reference Range: Low Risk <200 Borderline 200-239 High Risk >240HDL Cholesterol Reference Range: Low Risk >=60 High Risk <40LDL Cholesterol Reference Range: Optimal <100 Near Optimal 100-129 Borderline 130-159 High 160-189 Very High >=[id number] 01:40:00 Test Item Value Reference Range Interpretation Comments D-DIMER QUANTITATIVE (BEAKER) 0.43 MG/L FEU <0.50 (test code = 671) Intended Use: The D-Dimer Assay can be used to aid in the diagnosis of Deep Vein Thrombosis (DVT) and Pulmonary Embolism Disease (PED).In patients with low pre- test probability, various studies concerning STA Liatest D-dimer test have reported that with a cutoff value of 0.50 MG/L FEU, the Negative Predictive Value (NPV) regarding the exclusion of thrombosis is within 95-100% range. TROPONIN [id number] 01:26:00 Test Item Value Reference Range Interpretation Comments TROPONIN I (BEAKER) (test code = 0.01 ng/mL 0.00-0.03 397) Troponin I (TnI) levels must be interpreted [...] acidosis, acute neurological disease, and persistent tachyarrhythmia.PROTHROMBIN [id number] 01:26:00 Test Item Value Reference Range Interpretation Comments PROTIME (BEAKER) (test code = 16.9 seconds 11.7-14.7 H 759) INR (BEAKER) (test code = 370) 1.4 <=5.9 RECOMMENDED COUMADIN/WARFARIN INR THERAPY RANGESSTANDARD DOSE: 2.0 - 3.0 Includes: PROPHYLAXIS forvenous thrombosis, systemic embolization; TREATMENT for venous thrombosis and/or pulmonary embolus.HIGH RISK: Target INR is 2.5-3.5 for patients with mechanical heart valves.RAD, CHEST, 1 VIEW, NON [id number] 01:12:00Reason for exam:->Chest PainFINAL REPORT RAD, CHEST, 1 VIEW, NON DEPT INDICATION: Chest Pain COMPARISON: None TECHNIQUE: Single frontal view of the chest. IMPRESSION:Cardiomegaly.Diffuse interstitial prominence which may be chronic. A subtle superimposed interstitial edema or interstitial pneumonitis wouldbe difficult to exclude. Small left-sided effusion.No acute osseous abnormality. Signed: Dolores Mo MDReport Verified Date/Time: 03/23/2018 01:12:11 Reading Location: [facility] B1 C013X Ortho Consult Re ading Room CBC W/PLT COUNT & AUTO [id number] 01:04:00 Test Item Value Reference Range Interpretation Comments WHITE BLOOD CELL COUNT (BEAKER) 8.6 K/ L 3.5-10.5 (test code = 775) RED BLOOD CELL COUNT (BEAKER) 4.13 M/ L 4.63-6.08 L (test code = 761) HEMOGLOBIN (BEAKER) (test code = 14.2 GM/DL 13.7-17.5 410) HEMATOCRIT (BEAKER) (test code = 40.9 % 40.1-51.0 411) MEAN CORPUSCULAR VOLUME (BEAKER) 99.0 fL 79.0-92.2 H (test code = 753) MEAN CORPUSCULAR HEMOGLOBIN 34.4 pg 25.7-32.2 H (BEAKER) (test code = 751) MEAN CORPUSCULAR HEMOGLOBIN CONC 34.7 GM/DL 32.3-36.5 (BEAKER) (test code = 752) RED CELL DISTRIBUTION WIDTH 15.0 % 11.6-14.4 H (BEAKER) (test code = 412) PLATELET COUNT (BEAKER) (test code 68 K/CU MM 150-450 L = 756) MEAN PLATELET VOLUME (BEAKER) 11.0 fL 9.4-12.4 (test code = 754) NUCLEATED RED BLOOD CELLS (BEAKER) 0 /100 WBC 0-0 (test code = 413) NEUTROPHILS RELATIVE PERCENT 56 % (BEAKER) (test code = 429) LYMPHOCYTES RELATIVE PERCENT 31 % (BEAKER) (test code = 430) MONOCYTES RELATIVE PERCENT 12 % (BEAKER) (test code = 431) EOSINOPHILS RELATIVE PERCENT 1 % (BEAKER) (test code = 432) BASOPHILS RELATIVE PERCENT 1 % (BEAKER) (test code = 437) NEUTROPHILS ABSOLUTE COUNT 4.80 K/ L 1.78-5.38 (BEAKER) (test code = 670) LYMPHOCYTES ABSOLUTE COUNT 2.65 K/ L 1.32-3.57 (BEAKER) (test code = 414) MONOCYTES ABSOLUTE COUNT (BEAKER) 1.03 K/ L 0.30-0.82 H (test code = 415) EOSINOPHILS ABSOLUTE COUNT 0.06 K/ L 0.04-0.54 (BEAKER) (test code = 416) BASOPHILS ABSOLUTE COUNT (BEAKER) 0.04 K/ L 0.01-0.08 (test code = 417) IMMATURE GRANULOCYTES-RELATIVE 0 % 0-1 PERCENT (BEAKER) (test code = 2801)
[2020-05-26] MEDS ORDERED: IPRATROPIUM BROM 0.5MG/2.5ML NEB PRN (18:41)
[2020-05-26] MEDS ORDERED: ALBUTEROL 2.5 MG/3 ML NEB SOL NEB PRN (18:41)
[2020-05-26] MEDS ORDERED: ONDANSETRON 4 MG/2 ML VIAL IV PRN (18:41)
[2020-05-26] MEDS ORDERED: ACETAMINOPHEN 500 MG TAB PO PRN (18:41)
[2020-05-26 19:53] LABS: Blood Morphology Comment NOT SEEN (NOT SEEN); Platelet Estimate DECR; Urine White Blood Cell Casts OK
[2020-05-26] MEDS ORDERED: CEFTRIAXONE/SWI 1gm 1 GM/10 ML SYR IVP SCH (21:00)
[2020-05-26] MEDS ORDERED: GLUCAGON 1 MG/VIAL IM PRN (22:43)
[2020-05-26] MEDS ORDERED: D50W 25 GM/50 ML SYRINGE/VIAL IV PRN (22:43)
[2020-05-27 02:00] VITALS: BMI 34.2
[2020-05-27 04:07] LABS: Absolute Lymphocytes (CBC) 0.5 K/uL (0.7-4.9); Basophils % 0.2 % (0-1.3); Hematocrit 32.9 % (39.6-49.0); Lymphocytes % 7.5 % (15.3-44.8); MPV 8.3 fL (7.6-11.3); RBC Red Blood Cell Count 3.59 M/uL (4.33-5.43)
[2020-05-27 04:39] LABS: Potassium 4.3 mmol/L (3.5-5.1)
[2020-05-27] MEDS ORDERED: INSULIN -REGULAR HUMAN 50 UNIT/0.5 ML ML SQ SCH (07:30)
[2020-05-27] MEDS ORDERED: AZITHROMYCIN IV 250 MG in NA CHLORIDE 0.9% 250 ML IVPB SCH (09:00)
[2020-05-27] MEDS ORDERED: CEFTRIAXONE/SWI 1gm 1 GM/10 ML SYR IVP SCH (09:00)
[2020-05-27 09:16] VITALS: BP 166/86; TEMP 97.9
--- NOTE | 2020-05-27 09:35 | CON ---
Date of Consultation: 05/27/[address] Blandon's service on 05/26/2020, I saw the patient on 05/27/2020. Reason For Consultation: Congestive heart failure. History Of Present Illness: Mr. Zaman is a 80-year-old white male. He is very well-known to me f rom office visits and admission. He has a history of hypertension, diabetes, dyslipidemia, diastolic congestive heart failure, dementia, has atrial fibrillation, status post pacemaker, had a cardiovers ion in February that was successful, but he went back into atrial fibrillation and just recently underwe nt an ablation by Dr. Shane in [place]. Apparently, the second day after the ablation and after he went home, he developed severe shortness of breath and was instructed by my office to go to the em ergency room where he was found to have mild congestive heart failure and a left upper lobe pneumonia by CT and chest x-ray. He has been getting inhalers, antibiotics, received some IV Lasix and this m orning he is feeling much better. He denied any chest pain. Denied any nausea, vomiting, diaphoresi s. He denied any fever, chills or cough. His main symptom was shortness of breath. Past Medical History: As stated above. Allergies: NONE. Review of Systems: Negative. Social History: Negative. Family History: Negative. Medications: At home include flecainide, Xarelto, Coreg, Lasix, metformin, and lisinopril. Physical Examination: General: He was very pleasant. He was in no acute distress. O2 saturation was 96% on 2 L. HEENT: Negative. Neck: Supple without any bruit, lymphadenopathy, JVD, or thyromegaly. Chest: Some rales in both bases. Cardiac: Paced rhythm. No murmurs, gallops, or rubs. Abdomen: Benign. Extremities: No clubbing, cyanosis, or edema. He had some ecchymoses on both groins from his recent ablation but no induration and no erythema. Had good distal pulses bilaterally. Skin: Dry and intact. Neurological: He was nonfocal. Diagnostic Data: Laboratory evaluation were unremarkable except for a BNP of 691. He was in sinus r hythm. His pneumonia, left upper lobe was noted on CT of the chest. Chest x-ray showed mild CHF. H is troponin was 1.12. Impression And Plan: 1.Elevated troponin secondary to recent atrial fibrillation and ablation. This is very normal to se e. He does have some acute on chronic diastolic congestive heart failure, which also may contribute to the troponin elevation and the BNP elevation. He also has a left upper lobe pneumonia. He has do ne much better on antibiotics overnight and IV Lasix and inhalers and he wants to go home. 2.Atrial fibrillation, status post pacemaker and a recent ablation. He is in sinus rhythm. He will continue flecainide and Xarelto. Hopefully, if he continues to be in sinus rhythm for the next 3 to 6 months, we can start taking him off the Xarelto and maybe even flecainide, but I will discuss that further with Dr. Shane. His other problems including hypertension, diabetes, dyslipidemia are s table at this point. I am very comfortable with Mr. Zaman going home whenever it is okay with Dr. Blandon on his home medications including flecainide and Xarelto. I would add p.o. antibiotics as an outpatient, p.o. Lasix 20 mg daily, which he takes at home and maybe an inhaler, and I will see him in the office in the next 1 or 2 weeks. KELSIE/MAIDAL Voice ID: [id number] Report ID: [id number]
[2020-05-27 09:49] VITALS: O2SAT 96
--- NOTE | 2020-05-27 10:02 | P.SSS ---
Patient History Date of Service: 05/27/20 Reason for admission: DYSPNEA. History of Present Illness: MR. TIAN GOT DYSPNEIC AFTER ABLATION IN [place]. SAID WHEN SHE PICKED HIM UP HE WAS HUFFING AND PUFFING. SHE FROM THERE BROUGHT HIM TO THIS ER. HE HAS IMPROVED WITH IV DIURESIS. HE HAS NO PNEUMONIA SYMPTOMS. HE HAS NO FEVER, COUGH ETC. HE IS VERY STABLE FOR DC. HE IS AN ANGRY AND DEMENTED GENTLEMAN. HE IS IN ISOLATION ONLY THEY TESTED HIM FOR COVID. DR. PEGUERO SAW HIM THIS AM AND CONFIRMED DISCHARGE CONDITION. I DID NOT WANT TO WASTE ONE MORE SET OF PPES SO I ASKED FOR TELEMEDICINE BUT HE GOT ANGRY SO I HAD TO GO SEE HIM. HE ON EXAMINATION IS VERY STABLE AND COMFORTABLE. I TALKED TO AN SHE APOLOGIZED. Allergies No Known Allergies Allergy (Verified 05/27/20 01:59) Home Medications: Furosemide 40 mg PO DAILY #90 tablet 05/27/20 Potassium Chloride [Klor-Con M20] 20 meq PO DAILY #90 tab.er.prt 05/27/20 - Past Medical/Surgical History Has patient received pneumonia vaccine in the past: Yes Diabetic: Yes -: Htn -: Afib -: NIDDM -: Hyperlipidemia -: CHF -: dementia -: Heart Ablation -: Appy -: Carpal tunel julian x2 -: Kidney stone removed - Family History Mother -: Heart disease, Hypertension, Stroke Notes: smoker Father -: Cancer Notes: lung cancer - Social History Smoking Status: Current every day smoker Alcohol use: Yes CD- Drugs: No Caffeine use: Yes Place of Residence: Home Review of Systems 10-point ROS is otherwise unremarkable Respiratory: Shortness of Breath Physical Examination - Vital Signs Temperature: 97.9 F Blood Pressure: 166/86 Pulse: 70 Respirations: 18 Pulse Ox (%): 98 - Physical Exam General: Alert, In no apparent distress, Confused HEENT: Atraumatic, PERRLA, Mucous membr. moist/pink, EOMI, Sclerae nonicteric Neck: Supple, 2+ carotid pulse no bruit, No LAD, Without JVD or thyroid abnormality Respiratory: Clear to auscultation bilaterally, Normal air movement Cardiovascular: Regular rate/rhythm, Normal S1 S2 Gastrointestinal: Normal bowel sounds, No tenderness Musculoskeletal: No tenderness Integumentary: No rashes Neurological: Normal gait, Normal speech, Normal strength at 5/5 x4 extr, Normal tone, Normal affect Lymphatics: No axilla or inguinal lymphadenopathy - Studies Laboratory Data (last 24 hrs) 05/26/20 13:50: PT 21.2 H, INR 1.82 05/26/20 13:50: WBC 7.3, Hgb 11.7 L, Hct 35.7 L, Plt Count 99 L 05/26/20 13:50: Sodium 139, Potassium 3.8, BUN 14, Creatinine 0.99, Glucose 99, Magnesium 1.8, Total Bilirubin 1.7 H, AST 35, ALT 22, Alkaline Phosphatase 50 Microbiology Data (last 24 hrs): 05/26/20 17:32 Nasopharnyx Coronavirus COVID-19 PCR - Final - Diagnosis (Problem(s)) (1) Diastolic CHF, acute Current Visit: Yes Status: Acute Plan: LASIX AND KCL PO. FU WITH DR. PEGUERO. (2) A-fib Current Visit: Yes Status: Chronic Plan: ANTICOAGULATION. Qualifiers: Atrial fibrillation type: longstanding persistent Qualified Code(s): I48.11 - Longstanding persistent atrial fibrillation (3) Elevated troponin Current Visit: Yes Status: Acute Plan: COMMON AFTER ABLATION. I DON'T SEE THIS NE. - Disposition Disposition: ROUTINE DISCHARGE Condition: FAIR Diet: AHA
== END 2020-05-27 11:04 | disposition home or self-care (01) ==
LOC: ER 13:35 → 4TH 22:09 → INTOOBSV 22:09
PROVIDERS: ADMIT Internal Medicine; ATTEND Internal Medicine
DX: I11.0 Hypertensive heart disease with heart failure (principal); I50.33 Acute on chronic diastolic (congestive) heart failure; J18.9 Pneumonia, unspecified organism; I48.11 Longstanding persistent atrial fibrillation; R79.89 Other specified abnormal findings of blood chemistry; R06.02 Shortness of breath; Z20.828 Contact with and (suspected) exposure to other viral communicable diseases; E11.9 Type 2 diabetes mellitus without complications; E78.5 Hyperlipidemia, unspecified; F03.90 Unspecified dementia, unspecified severity, without behavioral disturbance, psychotic disturbance, mood disturbance, and anxiety; F17.210 Nicotine dependence, cigarettes, uncomplicated; Z79.01 Long term (current) use of anticoagulants; Z79.84 Long term (current) use of oral hypoglycemic drugs; Z79.899 Other long term (current) drug therapy; Z95.0 Presence of cardiac pacemaker; J90 Pleural effusion, not elsewhere classified
CPT/HCPCS: 96365; 93005; 87040 ×2; 85025 ×2; 80048 ×2; 36415; 83735; 85610; 82947 ×2; 80076; 84484 ×3; 83880 ×2; 71275; 71045; 94760 ×2; 96375; 99285; U0002; Q9967; J0456; J0696 ×2; J7030; J2405; G0378 ×2; J7512